=== PATIENT | female | born 1995 | race Caucasian/White ===

== ENCOUNTER 2019-10-31 00:54 | Emergency (ER) | payer BC, SELFPAY ==
[2019-10-31 01:01] VITALS: BP 132/86; PULSE 82; RESP 16; TEMP 37.1; O2SAT 97; BMI 43.8
[2019-10-31 01:28] LABS: Basophils # 0.1 10^3/uL (0.0-0.1); Basophils % 0.9 %; Eosinophils # 0.3 10^3/uL (0.0-0.8); Hemoglobin 11.8 g/dL (11.5-15.3); Lymphocytes # 3.8 10^3/uL (0.8-4.8); Lymphocytes % 27.3 %; Mean Corpuscular HGB Conc 31.1 g/dL (30.0-36.0); Mean Corpuscular Hemoglobin 25.2 pg (28.0-34.0); Mean Corpuscular Volume 81.2 fL (81-99); Monocytes # 0.8 10^3/uL (0.2-0.9); Neutrophils # 8.6 10^3/uL (1.8-7.7); Neutrophils % 62.7 %; Nucleated Red Blood Cells % 0 %; Platelet Count 453 10^3/cmm (130-400); Red Blood Count 4.68 10^6/uL (4.1-5.3); Red Cell Distribution Width 13.9 % (12.1-15.1); White Blood Count 13.8 10^3/uL (4.0-10.0)
--- NOTE | 2019-10-31 01:36 | ED_ITS ---
HPI - General: Chief complaint: Vaginal Bleeding Stated complaint: early preg and bleeding Time Seen by Provider: 10/31/19 00:57 Source: patient Mode of arrival: ambulatory Limitations: no limitations History of Present Illness: HPI Narrative: 24-year-old female who is currently 5 to 6 weeks she believes states she has had vaginal bleeding today. States that she is now passing clots but it has been steady. She has had lower abdominal cramping as well. Denies any vomiting or diarrhea. She states she has had subchorionic hemorrhages with previous pregnancies. MD Complaint: vaginal bleeding Date of Last Menstrual Period: 08/08/19 Associated symptoms: Deny abdominal pain, headache(s), nausea or vomiting Review of Systems Const: Denies: fever(s), chills, body aches or change in appetite Eyes: Denies: blurry vision or eye discomfort ENMT: Denies: throat pain or dental pain Card: Denies: chest pain Resp: Denies: dyspnea GI: Denies: abdominal pain, nausea, vomiting or diarrhea : Reports: vaginal bleeding Musc: Denies: neck pain or back pain Skin/Breast: Denies: rash Neuro: Denies: headache(s) Psych: Denies: depression Deacon/Lymph: Denies: easy bruising All/Imm: Denies: urticaria PFSH ED PFSH: Social History Smoking and tobacco status: current every day smoker Female Reproductive History: Date of last menstrual period: 08/08/19 Physical Exam Const: COMMON NORMALS: no acute distress, patient oriented x3 and healthy appearing HENMT: COMMON NORMALS: normocephalic and atraumatic HEAD & SCALP: normocephalic and atraumatic Eye: COMMON NORMALS: Equal, round and reactive pupils present and EOMs intact bilaterally PUPIL: Yes Equal, round and reactive pupils present Neck/C-Spine: COMMON NORMALS: full ROM and supple Chest: COMMONS NORMALS: normal inspection of the chest and normal palpation of entire chest wall Resp: COMMON NORMALS: normal respiratory effort, No retractions, No use of accessory muscles and clear to auscultation bilaterally AUSCULTATION: clear to auscultation bilaterally Cardio: COMMON NORMALS: regular rate, regular rhythm and No murmurs present (Cardio) RATE: regular rate RHYTHM: regular rhythm GI: COMMON NORMALS: Normal to inspection, nondistended, normoactive bowel sounds present, Soft to palpation, non-tender and no masses PALPATION: Yes Soft to palpation Extremity: COMMON NORMALS: normal to inspection and full ROM Neuro: COMMON NORMALS: patient oriented x3, moves all extremities and no focal motor deficits Psych: COMMON NORMALS: mental status grossly normal, Normal thought process present and cooperative THOUGHT PROCESS: Normal thought process present Skin: COMMON NORMALS: no rashes or lesions noted and no wounds GENERAL SKIN EXAM: no rashes or lesions noted Course Vital Signs: Vital signs: Vital Signs Temperature 98.8 F 10/31/19 01:01 Pulse Rate 105 H 10/31/19 01:48 Respiratory Rate 17 10/31/19 01:48 Blood Pressure 124/81 10/31/19 01:48 Pulse Oximetry 97 10/31/19 01:48 MDM - OB/Uterine Contractions MDM Narrative: Medical decision making narrative: Patient presents here with threatened miscarriage and likely has had a miscarriage. Her quantitative level here is very low. Her vital signs are normal and she has no signs of an acute ectopic and bedside ultrasound showed no IUP. I do not believe patient needs a formal ultrasound at this time. She is to follow-up with her primary care doctor scheduled as Friday to have a repeat quantitative. She is to return to the ER if her pain or bleeding worsens. She understands and agrees to plan. Lab Data: Labs: Lab Results 10/31/19 10/31/19 Range/Units 01:15 01:15 WBC 13.8 H (4.0-10.0) 10^3/ uL RBC 4.68 (4.1-5.3) 10^6/u L Hgb 11.8 (11.5-15.3) g/dL Hct 38.0 (37.0-47.0) % MCV 81.2 (81-99) fL MCH 25.2 L (28.0-34.0) pg MCHC 31.1 (30.0-36.0) g/dL RDW 13.9 (12.1-15.1) % Plt Count 453 H (130-400) 10^3/c mm MPV 10.0 (7.4-10.4) fL Neut % (Auto) 62.7 % Lymph % (Auto) 27.3 % [place] % (Auto) 6.0 % Eos % (Auto) 2.0 % Baso % (Auto) 0.9 % Neut # (Auto) 8.6 H (1.8-7.7) 10^3/u L Lymph # (Auto) 3.8 (0.8-4.8) 10^3/u L [place] # (Auto) 0.8 (0.2-0.9) 10^3/u L Eos # (Auto) 0.3 (0.0-0.8) 10^3/u L Baso # (Auto) 0.1 (0.0-0.1) 10^3/u L Nucleated RBC % (a uto) 0 % Nucleated RBCs # 0.0 /100WBC Ser , Sophie i-Qnt 4.78 mIU/mL Discharge Plan Discharge Patient Disposition: Home, Self-Care Clinical Impression: Threatened Condition: Stable Prescriptions: No Action Adult Low Dose Aspirin RF: 0 Discharge Orders: Discharge Order (Routine); Ordered 10/31/19 Ordered By: Jerman Jorgensen Referrals: Rico Kellogg MD [Primary Care Provider] - Discharge Diet: Advance as tolerated Discharge Activity: Resume usual activity Patient Instructions: Threatened Miscarriage (ED) Coding Level of Care Code ED Cat Wagon Operator for Chg Fwd Exam Comprehensive
[2019-10-31 01:40] LABS: HCG Quantitative 4.78 mIU/mL
[2019-10-31 01:48] VITALS: BP 124/81; PULSE 105; RESP 17; O2SAT 97
== END 2019-10-31 02:07 | disposition home or self-care (01) ==
PROVIDERS: Emergency Provider Emergency Medicine; PCP Family Medicine
DX: O20.0 Threatened abortion (principal); Z3A.01 Less than 8 weeks gestation of pregnancy; O99.331 Smoking (tobacco) complicating pregnancy, first trimester; F17.210 Nicotine dependence, cigarettes, uncomplicated
CPT/HCPCS: 12345; 84702; 85025; 99281; 99282

== ENCOUNTER → 2020-04-02 09:36 | Outpatient (BNVA) | payer OTHER, SELFPAY | PROVIDERS: PCP Family Medicine | DX: Z20.828 Contact with and (suspected) exposure to other viral communicable diseases (principal) | CPT/HCPCS: 87635 ==

== ENCOUNTER 2020-06-09 15:56 | Emergency (ER) | payer OTHER, SELFPAY ==
[2020-06-09 16:02] VITALS: BP 135/88; PULSE 102; RESP 18; TEMP 36.7; O2SAT 99; BMI 43.4
[2020-06-09 16:04] VITALS: O2SAT 99
--- NOTE | 2020-06-09 16:23 | ED_ITS ---
HPI - General: Chief complaint: Vaginal Bleeding Stated complaint: CRAMPING, SPOTTING, @ 8 WKS Time Seen by Provider: 06/09/20 16:08 History of Present Illness: HPI Narrative: 24-year-old female who is approximately 8 weeks gestation she is G2, P1. She started having cramping few days ago and now is having some small amount of spotting mostly when she wipes once or twice that spent on her underwear it began this morning. She has not had to wear a pad. She did have a previous loss in the first trimester. She denies any recent trauma. No recent cough cold or flu symptoms no dysuria urgency or frequency no vaginal discharge to be on the bleeding. MD Complaint: vaginal bleeding Onset (ago): day(s) Pain Consistency: intermittent Location: pelvis Severity: moderate Quality: Cramping Relieving factors: none Exacerbating factors: none Vaginal discharge: none Vaginal bleeding: light Date of Last Menstrual Period: 04/16/20 Patient : Yes Number of Weeks : 8 OB History - Current : no complications OB History - Previous Pregnancies: miscarriage (First trimester) and other (Subchorionic hemorrhage) care: followed by OB Associated symptoms: Deny abdominal pain, dyspareunia, dysuria, headache(s), malaise, nausea, rash, seizures, short of breath, syncope, vaginal discharge, visual changes, vomiting or weakness Review of Systems Const: Denies: malaise ENMT: Denies: throat pain, ear or mastoid pain, nasal discharge or nasal congestion Card: Denies: syncope Resp: Denies: dyspnea, productive cough or non-productive cough GI: Denies: abdominal pain, nausea or vomiting : Denies: dysuria, vaginal discharge or dyspareunia Skin/Breast: Denies: rash or pruritus Neuro: Denies: headache(s) PFSH ED PFSH: Family History Mother Hypertension Father Diabetes Grandmother Dementia Social History Smoking and tobacco status: current every day smoker Female Reproductive History: Date of last menstrual period: 04/16/20 Physical Exam Const: COMMON NORMALS: no acute distress GENERAL APPEARANCE: cooperative and comfortable ORIENTATION/CONSCIOUSNESS: Yes awake, Yes oriented to person, Yes oriented to place and Yes oriented to time HENMT: COMMON NORMALS: normocephalic, atraumatic and hearing grossly normal bilaterally HEAD & SCALP: normocephalic and atraumatic Neck/C-Spine: COMMON NORMALS: no JVD Resp: COMMON NORMALS: normal respiratory effort, No retractions, No use of accessory muscles and clear to auscultation bilaterally AUSCULTATION: clear to auscultation bilaterally Cardio: COMMON NORMALS: no JVD, regular rate, regular rhythm and No murmurs present (Cardio) RATE: regular rate RHYTHM: regular rhythm GI: COMMON NORMALS: Soft to palpation and No hepatosplenomegaly present AUSCULTATION: Yes normoactive bowel sounds PALPATION: Yes Soft to palpation, No Tenderness to palpation present (GI), No Guarding due to palpation present (GI) and Yes No hepatosplenomegaly present Extremity: COMMON NORMALS: normal to inspection, capillary refill normal, no clubbing, cyanosis or edema, no calf tenderness and no pedal edema Neuro: SENSORIUM/ORIENTATION: Yes oriented to person, Yes oriented to place and Yes oriented to time Skin: COMMON NORMALS: no rashes or lesions noted GENERAL SKIN EXAM: no rashes or lesions noted Procedures Perimortem Number of Weeks : 8 Course Vital Signs: Vital signs: Vital Signs Temperature 98.1 F 06/09/20 16:02 Pulse Rate 88 06/09/20 17:54 Respiratory Rate 18 06/09/20 16:02 Blood Pressure 125/95 06/09/20 17:54 Pulse Oximetry 100 06/09/20 17:54 MDM - OB/Uterine Contractions MDM Narrative: Medical decision making narrative: Ultrasound shows intrauterine with good heart tones. Beta-hCG is normal patient is a positive she does have a subchorionic hemorrhage. Discharge home no lifting greater than 20 pounds, pelvic rest until released by her primary OB physician. Lab Data: Labs: Lab Results 06/09/20 06/09/20 06/09/20 Range/Units 16:30 16:30 16:30 WBC 14.6 H (4.0-10.0) 10^3/ uL RBC 4.84 (4.1-5.3) 10^6/u L Hgb 12.4 (11.5-15.3) g/dL Hct 39.3 (37.0-47.0) % MCV 81.2 (81-99) fL MCH 25.6 L (28.0-34.0) pg MCHC 31.6 (30.0-36.0) g/dL RDW 14.9 (12.1-15.1) % Plt Count 455 H (130-400) 10^3/c mm MPV 10.4 (7.4-10.4) fL Neut % (Auto) 67.0 % Lymph % (Auto) 24.4 % [place] % (Auto) 5.5 % Eos % (Auto) 1.6 % Baso % (Auto) 0.7 % Neut # (Auto) 9.80 H (1.8-7.7) 10^3/u L Lymph # (Auto) 3.6 (0.8-4.8) 10^3/u L [place] # (Auto) 0.8 (0.2-0.9) 10^3/u L Eos # (Auto) 0.2 (0.0-0.8) 10^3/u L Baso # (Auto) 0.1 (0.0-0.1) 10^3/u L Nucleated RBC % (a uto) 0 % Nucleated RBCs # 0.0 /100WBC Sodium 134 L (136-145) mmol/L Potassium 3.8 (3.5-5.1) mmol/L Chloride 100 (98-107) mmol/L Carbon Dioxide 24 (22-29) mmol/L Anion Gap 13.8 (5-19) BUN 8 (6-20) mg/dL Creatinine 0.6 (0.5-0.9) mg/dL GFR Calculation 123.9 (90-130) mL/min Glucose 127 H (65-115) mg/dL Calculated Osmolal ity 278 L (285-295) mOsm/k g Calcium 9.2 (8.5-10.5) mg/dL Ser , [place] 33232.00 mIU/mL Urine Color (Yellow) Urine Appearance (CLEAR) Urine pH (5-7) Ur Specific Gravit y (1.005-1.030) Urine Protein (Negative) Urine Glucose (UA) (Normal) Urine Ketones (Negative) Urine Blood (Negative) Urine Nitrate (Negative) Urine Bilirubin (Negative) Urine Urobilinogen (Negative) mg/dL Ur Leukocyte Katlyn ase (Negative) Blood Type O Positive Rho(D) Type Positive 06/09/20 Range/Units 17:51 WBC (4.0-10.0) 10^3/ uL RBC (4.1-5.3) 10^6/u L Hgb (11.5-15.3) g/dL Hct (37.0-47.0) % MCV (81-99) fL MCH (28.0-34.0) pg MCHC (30.0-36.0) g/dL RDW (12.1-15.1) % Plt Count (130-400) 10^3/c mm MPV (7.4-10.4) fL Neut % (Auto) % Lymph % (Auto) % [place] % (Auto) % Eos % (Auto) % Baso % (Auto) % Neut # (Auto) (1.8-7.7) 10^3/u L Lymph # (Auto) (0.8-4.8) 10^3/u L [place] # (Auto) (0.2-0.9) 10^3/u L Eos # (Auto) (0.0-0.8) 10^3/u L Baso # (Auto) (0.0-0.1) 10^3/u L Nucleated RBC % (a uto) % Nucleated RBCs # /100WBC Sodium (136-145) mmol/L Potassium (3.5-5.1) mmol/L Chloride (98-107) mmol/L Carbon Dioxide (22-29) mmol/L Anion Gap (5-19) BUN (6-20) mg/dL Creatinine (0.5-0.9) mg/dL GFR Calculation (90-130) mL/min Glucose (65-115) mg/dL Calculated Osmolal ity (285-295) mOsm/k g Calcium (8.5-10.5) mg/dL Ser , Sophie i-Qnt mIU/mL Urine Color Yellow (Yellow) Urine Appearance Clear (CLEAR) Urine pH 6.5 (5-7) Ur Specific Gravit y 1.010 (1.005-1.030) Urine Protein Neg (Negative) Urine Glucose (UA) Norm (Normal) Urine Ketones Negative (Negative) Urine Blood Neg (Negative) Urine Nitrate Negative (Negative) Urine Bilirubin Neg (Negative) Urine Urobilinogen Norm (Negative) mg/dL Ur Leukocyte Kat[place] ase Negative (Negative) Blood Type Rho(D) Type Discharge Plan Discharge Patient Disposition: Home Clinical Impression: Subchorionic hematoma in first trimester Condition: Stable Prescriptions: No Action Doculax 100 mg Capsule 100 mg PO PRN RF: 0 omeprazole 20 mg capsule,delayed release(DR/EC) 20 mg PO EVERY OTHER DAY RF: 0 Flintstones Gummies Tablet,Chewable 2 - 3 tab PO QAM RF: 0 Discharge Orders: Discharge ED (Routine); Ordered 06/09/20 Ordered By: Vitor Perea Referrals: Rico Kellogg MD [Primary Care Provider] - Discharge Diet: Usual diet Discharge Activity: Resume usual activity Activity Restrictions/Additional Instructions: Avoid strenuous activity. Follow-up with Dr. Kellogg within the week. If increase in bleeding or any worsening of cramping return to the emergency room. No intercourse nothing intravaginal until released by your physician. Coding Level of Care Code ED Pre Sales Architect for Chg Fwd Exam Comprehensive
--- NOTE | 2020-06-09 16:26 | PC.PHAR ---
pt states she was taking aspirin daily because she has a history of blood clots but states she hasnt taken for 8 weeks
[2020-06-09 16:39] LABS: Basophils # 0.1 10^3/uL (0.0-0.1); Basophils % 0.7 %; Eosinophils # 0.2 10^3/uL (0.0-0.8); Eosinophils % 1.6 %; Hematocrit 39.3 % (37.0-47.0); Hemoglobin 12.4 g/dL (11.5-15.3); Lymphocytes # 3.6 10^3/uL (0.8-4.8); Lymphocytes % 24.4 %; Mean Corpuscular HGB Conc 31.6 g/dL (30.0-36.0); Mean Corpuscular Hemoglobin 25.6 pg (28.0-34.0); Mean Corpuscular Volume 81.2 fL (81-99); Mean Platelet Volume 10.4 fL (7.4-10.4); Monocytes # 0.8 10^3/uL (0.2-0.9); Monocytes % 5.5 %; Nucleated Red Blood Cells % 0 %; Platelet Count 455 10^3/cmm (130-400); Red Blood Count 4.84 10^6/uL (4.1-5.3); Red Cell Distribution Width 14.9 % (12.1-15.1); White Blood Count 14.6 10^3/uL (4.0-10.0)
--- NOTE | 2020-06-09 17:05 | USR_ITS ---
PROCEDURE INFORMATION: Exam: US , Limited Exam date and time: 06/09/2020 5:41 PM Age: 24 years old Clinical indication: Lmp or gestational age (in weeks): 8 w 0 d; Other: Spotting; TECHNIQUE: Imaging protocol: Real-time ultrasound of the maternal uterus with image documentation. Exam focused on the clinical indication. COMPARISON: [place] [facility] – [place] OB > 14 weeks 02/19/2018 10:47 AM FINDINGS: Gestation: Morphologically normal intrauterine gestational sac containing a normal yolk sac and pole. There is a 3.5 x 3.5 x 2.2 cm predominantly isoechoic myometrial mass within the anterior right uterine body adjacent to the gestational sac. The structure demonstrates minimal mass effect on the gestational sac. There is a focus of hypoechoic material between the myometrial mass and gestational sac. heart rate: 150 bpm. BIOMETRY: Gestational age (AUA): 8 weeks 0 days by ultrasound Estimated due date (AUA): 01/19/2021 MATERNAL: Right adnexa: The right ovary is morphologically normal. The right ovary measures 2.7 x 1.4 x 1.4 cm. Left adnexa: The left ovary is morphologically normal. The left ovary measures 2.5 x 4.9 x 2.4 cm 4.9 x 2.5 x 2.4 cm. Intraperitoneal space: no pelvic free fluid. Urinary bladder: The urinary bladder is unremarkable. US/US OB <= 14 weeks fetus [id number] IMPRESSION: 1. Single live intrauterine . 8 weeks 0 days gestational age by ultrasound. 2. Trace subchorionic hemorrhage is suspected. 3. Probable 3.5 cm anterior right uterine body myometrial fundal fibroid.
[2020-06-09 17:20] LABS: Anion Gap 13.8 (5-19); Blood Urea Nitrogen 8 mg/dL (6-20); Calcium 9.2 mg/dL (8.5-10.5); Carbon Dioxide 24 mmol/L (22-29); Chloride 100 mmol/L (98-107); Glomerular Filtration Rate 123.9 mL/min (90-130); Glucose 127 mg/dL (65-115); Osmolality Calculated 278 mOsm/kg (285-295); Potassium 3.8 mmol/L (3.5-5.1); Sodium 134 mmol/L (136-145)
[2020-06-09 17:54] VITALS: BP 125/95; PULSE 88; O2SAT 100
[2020-06-09 18:10] LABS: Add Urine Microscopic? NO
[2020-06-09 18:15] LABS: Bilirubin Urine Neg (Negative); Blood Urine Neg (Negative); Glucose Urine UA Norm (Normal); Ketones Urine Negative (Negative); Leukocyte Esterase Urine Negative (Negative); Nitrate Urine Negative (Negative); Protein Urine Neg (Negative); Urine Appearance Clear (CLEAR); Urine Color Yellow (Yellow); Urobilinogen Urine Norm (Negative); pH Urine 6.5 (5-7)
== END 2020-06-09 18:00 | disposition home or self-care (01) ==
PROVIDERS: Emergency Provider Family Medicine; PCP Family Medicine
DX: O41.8X10 Other specified disorders of amniotic fluid and membranes, first trimester, not applicable or unspecified (principal); O99.331 Smoking (tobacco) complicating pregnancy, first trimester; F17.210 Nicotine dependence, cigarettes, uncomplicated; Z3A.08 8 weeks gestation of pregnancy
CPT/HCPCS: 12345; 76801; 80048; 81003; 84702; 85025; 86900; 99282; 99283

== ENCOUNTER 2020-10-12 07:37 | Emergency (ER) | payer OTHER, SELFPAY ==
[2020-10-12 07:47] VITALS: BP 148/94; PULSE 89; RESP 18; TEMP 36.9; O2SAT 98; BMI 41.8
[2020-10-12] MEDS: promethazine 25 mg/mL SDV 1 mL IM (08:17)
[2020-10-12] MEDS: sodium chloride 0.9% 1,000 ML 999 ML IV (08:17)
[2020-10-12 08:21] LABS: Basophils # 0.1 10^3/uL (0.0-0.1); Basophils % 0.6 %; Eosinophils # 0.1 10^3/uL (0.0-0.8); Eosinophils % 0.7 %; Hematocrit 35.1 % (37.0-47.0); Hemoglobin 11.4 g/dL (11.5-15.3); Lymphocytes # 3.1 10^3/uL (0.8-4.8); Lymphocytes % 28.4 %; Mean Corpuscular HGB Conc 32.5 g/dL (30.0-36.0); Mean Corpuscular Hemoglobin 27.3 pg (28.0-34.0); Mean Corpuscular Volume 84.2 fL (81-99); Mean Platelet Volume 10.7 fL (7.4-10.4); Monocytes # 0.7 10^3/uL (0.2-0.9); Monocytes % 6.5 %; Neutrophils # 6.95 10^3/uL (1.8-7.7); Nucleated Red Blood Cells % 0 %; Platelet Count 345 10^3/cmm (130-400); Red Blood Count 4.17 10^6/uL (4.1-5.3); Red Cell Distribution Width 13.7 % (12.1-15.1); White Blood Count 11.1 10^3/uL (4.0-10.0)
--- NOTE | 2020-10-12 08:24 | W.ED.NAVMDI ---
HPI - Nausea/Vomiting/Diarrhea General: Chief complaint: Nausea/Vomiting/Diarrhea Stated complaint: n.v.d Time Seen by Provider: 10/12/20 07:46 History of Present Illness: HPI Narrative: 25-year-old female is approximately 25 weeks . She has had problems with nausea and vomiting throughout the . She has been taking Zofran for her nausea. She also has had some dental pain and has been taking a combination Tylenol product. She is concerned about acetaminophen overdose. The combination product she has been taking has 250 mg of acetaminophen per tablet she has been taking 2 tablets every 6-8 hours. On that regimen add max she would be getting 2 g of acetaminophen in 24 hours. MD elicited complaint: nausea, vomiting and diarrhea Pertinent past history: other () Onset (ago): week(s) Associated nausea: Yes Associated abdominal pain: Yes Location of pain: Diffuse Pain consistency: intermittent Severity: moderate Quality: cramping Exacerbating factors: eating Relieving factors: medication Associated symtoms: Reports headache(s), anorexia and nausea; Denies altered mental status, anxiety, bloating, change in vision, chest pain, cough, diaphoresis, decreased urine output, dizziness, dysuria, epistaxis, fatigue, fecal incontinence, fevers/chills, malaise, myalgias, numbness, palpitations, rash, short of breath, syncope, tenesmus, tinnitus or weakness Treatment prior to arrival: other (Ondansetron) Review of Systems Const: Denies: fatigue, malaise or diaphoresis Eyes: Denies: change in vision ENMT: Denies: tinnitus or epistaxis Card: Denies: chest pain, palpitations or syncope Resp: Denies: dyspnea, productive cough or non-productive cough GI: Reports: nausea; Denies: bloating or fecal incontinence : Denies: dysuria Skin/Breast: Denies: rash or pruritus Neuro: Reports: headache(s); Denies: dizziness Psych: Denies: anxiety PFSH ED PFSH: Family History Mother Hypertension Father Diabetes Grandmother Dementia Social History Smoking and tobacco status: current every day smoker Female Reproductive History: Date of last menstrual period: 04/14/20 Physical Exam Const: COMMON NORMALS: no acute distress EXAM LIMITATIONS: no altered mental status GENERAL APPEARANCE: cooperative and comfortable ORIENTATION/CONSCIOUSNESS: Yes awake, Yes oriented to person, Yes oriented to place and Yes oriented to time HENMT: COMMON NORMALS: normocephalic, atraumatic and hearing grossly normal bilaterally HEAD & SCALP: normocephalic and atraumatic Neck/C-Spine: COMMON NORMALS: no JVD Lymph: LYMPHATIC: no lymphadenopathy noted and no lymphedema noted Resp: COMMON NORMALS: normal respiratory effort, No retractions, No use of accessory muscles and clear to auscultation bilaterally AUSCULTATION: clear to auscultation bilaterally Cardio: COMMON NORMALS: no JVD, regular rate, regular rhythm and No murmurs present (Cardio) RATE: regular rate RHYTHM: regular rhythm GI: COMMON NORMALS: Soft to palpation and No hepatosplenomegaly present AUSCULTATION: Yes normoactive bowel sounds PALPATION: Yes Soft to palpation, No Tenderness to palpation present (GI), No Guarding due to palpation present (GI) and Yes No hepatosplenomegaly present Extremity: COMMON NORMALS: normal to inspection, capillary refill normal, no clubbing, cyanosis or edema, no calf tenderness and no pedal edema Neuro: SENSORIUM/ORIENTATION: Yes oriented to person, Yes oriented to place and Yes oriented to time Skin: COMMON NORMALS: no rashes or lesions noted GENERAL SKIN EXAM: no rashes or lesions noted Course Vital Signs: Vital signs: Vital Signs Temperature 98.4 F 10/12/20 07:47 Pulse Rate 64 10/12/20 09:46 Respiratory Rate 18 10/12/20 09:46 Blood Pressure 148/80 10/12/20 09:46 Pulse Oximetry 98 10/12/20 09:46 MDM - Nausea/Vomiting/Diarrhea MDM Narrative: Medical decision making narrative: Feeling better blood pressure is elevated. Encourage her to follow-up with her primary care doctor gave her promethazine to use as needed. Reviewed Tylenol max dosage in 24 hours with her. I encouraged her to follow-up with her primary care will be the combination medicine she is taking also includes aspirin. She can be getting a fairly sizable dose to the course of a day at the rate she is taking it discussed with her this may present some problems at delivery if she takes that dose all the way up till delivery date. Recommend she review and discuss with primary OB. Lab Data: Labs: Lab Results 10/12/20 10/12/20 10/12/20 Range/Units 08:05 08:05 08:05 WBC 11.1 H (4.0-10.0) 10^3/ uL RBC 4.17 (4.1-5.3) 10^6/u L Hgb 11.4 L (11.5-15.3) g/dL Hct 35.1 L (37.0-47.0) % MCV 84.2 (81-99) fL MCH 27.3 L (28.0-34.0) pg MCHC 32.5 (30.0-36.0) g/dL RDW 13.7 (12.1-15.1) % Plt Count 345 (130-400) 10^3/c mm MPV 10.7 H (7.4-10.4) fL Neut % (Auto) 63.0 % Lymph % (Auto) 28.4 % [place] % (Auto) 6.5 % Eos % (Auto) 0.7 % Baso % (Auto) 0.6 % Neut # (Auto) 6.95 (1.8-7.7) 10^3/u L Lymph # (Auto) 3.1 (0.8-4.8) 10^3/u L [place] # (Auto) 0.7 (0.2-0.9) 10^3/u L Eos # (Auto) 0.1 (0.0-0.8) 10^3/u L Baso # (Auto) 0.1 (0.0-0.1) 10^3/u L Nucleated RBC % (a uto) 0 % Nucleated RBCs # 0.0 /100WBC Sodium 137 (136-145) mmol/L Potassium 3.5 (3.5-5.1) mmol/L Chloride 105 (98-107) mmol/L Carbon Dioxide 19 L (22-29) mmol/L Anion Gap 16.5 (5-19) BUN 5 L (6-20) mg/dL Creatinine 0.4 L (0.5-0.9) mg/dL GFR Calculation 196.1 H (90-130) mL/min Glucose 110 (65-115) mg/dL Calculated Osmolal ity 282 L (285-295) mOsm/k g Calcium 7.8 L (8.5-10.5) mg/dL Total Bilirubin 0.2 (0.15-1.2) mg/dL AST 12 (0-32) U/L ALT 10 (0-33) U/L Alkaline Phosphata se 113 H (35-105) IU/L Total Protein 7.1 (6.6-8.7) g/dL Albumin 3.7 (3.5-5.2) g/dL Globulin 3.4 (1.3-4.6) g/dL Urine Color Yellow (Yellow) Urine Appearance Sl hazy (CLEAR) Urine pH 5 (5-7) Ur Specific Gravit y 1.015 (1.005-1.030) Urine Protein Neg (Negative) Urine Glucose (UA) Norm (Normal) Urine Ketones 1+ H (Negative) Urine Blood Neg (Negative) Urine Nitrate Negative (Negative) Urine Bilirubin 1+ H (Negative) Urine Urobilinogen 4 H (Negative) mg/dL Ur Leukocyte Katlyn ase Negative (Negative) Urine RBC 0-4 H (0-2) /hpf Urine WBC 0-4 H (0-5) /hpf Ur Squamous Epith Cells 5-10 H (0-5) /hpf Amorphous Sediment Not Reportable Urine Bacteria 1+ H (NONE) /hpf Urine Mucus 1+ /hpf Acetaminophen 7.7 L (10-30) ug/mL Discharge Plan Discharge Patient Disposition: Home Clinical Impression: Nausea and vomiting, Elevated blood pressure reading, 25 to 26 weeks gestation of Condition: Stable Prescriptions: New promethazine 25 mg tablet 25 mg PO Q6H PRN (Reason: nausea and vomiting) Qty: 20 RF: 0 No Action Doculax 100 mg Capsule 100 mg PO PRN RF: 0 omeprazole 20 mg capsule,delayed release(DR/EC) 20 mg PO EVERY OTHER DAY RF: 0 Flintstones Gummies Tablet,Chewable 2 - 3 tab PO QAM RF: 0 Discharge Orders: Discharge ED (Routine); Ordered 10/12/20 Ordered By: Vitor Perea Referrals: Rico Kellogg MD [Primary Care Provider] - Patient Instructions: Opioid Safety Activity Restrictions/Additional Instructions: Follow-up with your OB doctor within the next week to recheck on blood pressure and other symptoms. Coding Level of Care Code ED Senior It Assistant for Chg Fwd Exam Comprehensive
[2020-10-12 08:28] VITALS: BP 160/104; PULSE 110; RESP 18; O2SAT 98
[2020-10-12 08:38] LABS: Acetaminophen 7.7 ug/mL (10-30); Alanine Aminotransferase 10 U/L (0-33); Albumin Level 3.7 g/dL (3.5-5.2); Alkaline Phosphatase 113 IU/L (35-105); Anion Gap 16.5 (5-19); Aspartate Amino Transferase 12 U/L (0-32); Blood Urea Nitrogen 5 mg/dL (6-20); Calcium 7.8 mg/dL (8.5-10.5); Carbon Dioxide 19 mmol/L (22-29); Chloride 105 mmol/L (98-107); Globulin 3.4 g/dL (1.3-4.6); Glomerular Filtration Rate 196.1 mL/min (90-130); Glucose 110 mg/dL (65-115); Osmolality Calculated 282 mOsm/kg (285-295); Potassium 3.5 mmol/L (3.5-5.1); Sodium 137 mmol/L (136-145); Total Bilirubin 0.2 mg/dL (0.15-1.2); Total Protein 7.1 g/dL (6.6-8.7)
[2020-10-12 08:42] LABS: Add Urine Microscopic? YES; Bilirubin Urine 1+ (Negative); Blood Urine Neg (Negative); Glucose Urine UA Norm (Normal); Ketones Urine 1+ (Negative); Leukocyte Esterase Urine Negative (Negative); Nitrate Urine Negative (Negative); Protein Urine Neg (Negative); RBC Urine 0-4 /hpf (0-2); Specific Gravity, Urine 1.015 (1.005-1.030); Urine Appearance SL Hazy (CLEAR); Urine Color Yellow (Yellow); Urobilinogen Urine 4 mg/dL (Negative); pH Urine 5 (5-7)
[2020-10-12 08:43] LABS: Add Urine Culture? No; Bacteria Urine 1+ /hpf; Mucus Urine 1+ /hpf; WBC Urine 0-4 /hpf (0-5)
[2020-10-12 09:28] VITALS: BP 148/80; PULSE 64; RESP 18; O2SAT 98
[2020-10-12 09:46] VITALS: BP 148/80; PULSE 64; RESP 18; O2SAT 98
== END 2020-10-12 09:47 | disposition home or self-care (01) ==
PROVIDERS: Emergency Provider Family Medicine; PCP Family Medicine
DX: O26.892 Other specified pregnancy related conditions, second trimester (principal); R11.2 Nausea with vomiting, unspecified; R03.0 Elevated blood-pressure reading, without diagnosis of hypertension; O99.332 Smoking (tobacco) complicating pregnancy, second trimester; F17.210 Nicotine dependence, cigarettes, uncomplicated; Z3A.25 25 weeks gestation of pregnancy
CPT/HCPCS: 80053; 80307; 81001; 85025; 96360; 96372; 99283; J2550; J7030

== ENCOUNTER 2020-10-22 15:07 | Outpatient (CLI) | payer OTHER, SELFPAY ==
[2020-10-22 15:21] VITALS: BP 140/88; PULSE 96
[2020-10-22 15:31] VITALS: BMI 35.4
[2020-10-22 16:10] VITALS: BP 124/72; PULSE 82
== END 2020-10-22 16:15 | disposition home or self-care (01) ==
LOC: OPOB 15:16 → OBGYN 15:17
PROVIDERS: PCP Family Medicine; Visit Provider Family Medicine
DX: O21.9 Vomiting of pregnancy, unspecified (principal); R42 Dizziness and giddiness; R10.9 Unspecified abdominal pain
CPT/HCPCS: 99211

== ENCOUNTER 2020-10-23 21:18 | Emergency (ER) | payer OTHER, SELFPAY ==
[2020-10-23 21:24] VITALS: BP 140/96; PULSE 113; RESP 16; TEMP 36.6; O2SAT 99; BMI 41.0
--- NOTE | 2020-10-23 22:35 | W.ED.EAR ---
HPI - Ear Problem General: Chief complaint: Ear Stated complaint: hearing Time Seen by Provider: 10/23/20 22:27 Source: patient Mode of arrival: ambulatory Limitations: no limitations History of Present Illness: HPI Narrative: 25-year-old female who is currently 27 weeks states she is having congestion in her right ear along with some decreased hearing. She states she is also had some right lower dental pain in the last week. States her pain is sharp in nature and rates it a 6 out of 10. Denies any difficulty swallowing. She denies any fevers. She has no related complaints. Associated symptoms: Reports ear or mastoid pain; Denies fever(s), headache(s) or neck pain Review of Systems Const: Denies: fever(s), chills, body aches or change in appetite Eyes: Denies: blurry vision or eye discomfort ENMT: Reports: dental pain and ear or mastoid pain Card: Denies: chest pain Resp: Denies: dyspnea GI: Denies: abdominal pain, nausea, vomiting or diarrhea : Denies: dysuria Musc: Denies: neck pain or back pain Skin/Breast: Denies: rash Neuro: Denies: headache(s) Psych: Denies: depression Deacon/Lymph: Denies: easy bruising All/Imm: Denies: urticaria PFSH ED PFSH: Family History Mother Hypertension Father Diabetes Grandmother Dementia Social History Smoking and tobacco status: current every day smoker Female Reproductive History: Date of last menstrual period: 04/14/20 Physical Exam Const: COMMON NORMALS: no acute distress, patient oriented x3 and healthy appearing HENMT: COMMON NORMALS: normocephalic, atraumatic, EAC's normal and TM's normal bilaterally HEAD & SCALP: normocephalic and atraumatic EXTERNAL AUDITORY CANAL: EAC's normal TYMPANIC MEMBRANE: TM's normal bilaterally OTHER: Poor dentition with swelling of the right lower molar with tenderness no obvious abscess no trismus Eye: COMMON NORMALS: Equal, round and reactive pupils present and EOMs intact bilaterally PUPIL: Yes Equal, round and reactive pupils present Neck/C-Spine: COMMON NORMALS: full ROM and supple Chest: COMMONS NORMALS: normal inspection of the chest and normal palpation of entire chest wall Resp: COMMON NORMALS: normal respiratory effort, No retractions, No use of accessory muscles and clear to auscultation bilaterally AUSCULTATION: clear to auscultation bilaterally Cardio: COMMON NORMALS: regular rate, regular rhythm and No murmurs present (Cardio) RATE: regular rate RHYTHM: regular rhythm GI: COMMON NORMALS: Normal to inspection, nondistended, normoactive bowel sounds present, Soft to palpation, non-tender and no masses PALPATION: Yes Soft to palpation Extremity: COMMON NORMALS: normal to inspection and full ROM Neuro: COMMON NORMALS: patient oriented x3, moves all extremities and no focal motor deficits Psych: COMMON NORMALS: mental status grossly normal, Normal thought process present and cooperative THOUGHT PROCESS: Normal thought process present Skin: COMMON NORMALS: no rashes or lesions noted and no wounds GENERAL SKIN EXAM: no rashes or lesions noted Course Vital Signs: Vital signs: Vital Signs Temperature 97.9 F 10/23/20 21:24 Pulse Rate 113 H 10/23/20 21:24 Respiratory Rate 16 10/23/20 21:24 Blood Pressure 140/96 10/23/20 21:24 Pulse Oximetry 99 10/23/20 21:24 MDM - Ear MDM Narrative: Medical decision making narrative: Patient presents here with dental infection likely causing her pain. Patient's exam here is normal. We will place her on Keflex and she is stable for discharge. She has follow-up with PCP and return if worsening. Discharge Plan Discharge Patient Disposition: Home Clinical Impression: Pain, dental, Ear pain, right Condition: Stable Prescriptions: New cephalexin 500 mg capsule 500 mg PO TID 7 Days Qty: 21 RF: 0 No Action omeprazole 20 mg capsule,delayed release(DR/EC) 20 mg PO EVERY OTHER DAY RF: 0 Flintstones Gummies Tablet,Chewable 2 - 3 tab PO QAM RF: 0 promethazine 25 mg tablet 25 mg PO Q6H PRN (Reason: nausea and vomiting) Qty: 20 RF: 0 ondansetron HCl 4 mg tablet 4 mg PO DAILY RF: 0 Discharge Orders: Discharge ED (Routine); Ordered 10/23/20 Ordered By: Jerman Jorgensen Referrals: Rico Kellogg MD [Primary Care Provider] - 1-3 days Discharge Diet: Advance as tolerated Discharge Activity: Resume usual activity Patient Instructions: Ear Pain - Adult, Toothache (ED) Coding Level of Care Code ED [employer]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
[2020-10-23] MEDS: cephALEXin 500 mg Capsule PO (22:36)
[2020-10-23 22:37] VITALS: BP 141/77; PULSE 88; RESP 18; O2SAT 98
== END 2020-10-23 22:38 | disposition home or self-care (01) ==
PROVIDERS: Emergency Provider Emergency Medicine; PCP Family Medicine
DX: H92.01 Otalgia, right ear (principal); K08.89 Other specified disorders of teeth and supporting structures; F17.210 Nicotine dependence, cigarettes, uncomplicated
CPT/HCPCS: 99282

== ENCOUNTER 2020-10-27 15:05 | Outpatient (CLI) | payer OTHER, SELFPAY ==
[2020-10-22 22:14] VITALS: TEMP 36.4
[2020-10-22 22:15] VITALS: BP 123/86; PULSE 96
[2020-10-27] VITALS (8 sets, daily range): BP systolic 110–139; BP diastolic 63–87; PULSE 100–141; TEMP 35.9; BMI 41.0
[2020-10-27] MEDS: HYDROcodone-acetaminophen 5-325 mg Tablet 1 TAB PO (16:23)
[2020-10-27 16:42] LABS: Bacteria Urine TRACE /hpf; Bilirubin Urine Neg (Negative); Blood Urine Neg (Negative); Glucose Urine UA Norm (Normal); Ketones Urine Negative (Negative); Leukocyte Esterase Urine Negative (Negative); Nitrate Urine Negative (Negative); Protein Urine Neg (Negative); Urine Appearance Clear (CLEAR); Urine Color Yellow (Yellow); Urobilinogen Urine Norm (Negative); pH Urine 6.5 (5-7)
[2020-10-27 16:43] LABS: Add Urine Culture? No
== END 2020-10-27 17:05 | disposition home or self-care (01) ==
LOC: OPOB 15:13 → OBGYN 15:14
PROVIDERS: PCP Family Medicine; Visit Provider Family Medicine
DX: O16.9 Unspecified maternal hypertension, unspecified trimester (principal); O26.899 Other specified pregnancy related conditions, unspecified trimester; Z3A.00 Weeks of gestation of pregnancy not specified; R55 Syncope and collapse
CPT/HCPCS: 81001; 99211

== ENCOUNTER 2020-12-02 22:00 | Outpatient (CLI) | payer OTHER, MEDICAID, SELFPAY ==
[2020-12-02] VITALS (7 sets, daily range): BP systolic 123; BP diastolic 71; PULSE 98–104; TEMP 35.9; O2SAT 99–100; BMI 41.3
--- NOTE | 2020-12-02 22:30 | PC.NURSE ---
patient arrived to floor with 20g IV in RFA
[2020-12-02 22:48] LABS: Basophils # 0.1 10^3/uL (0.0-0.1); Basophils % 0.5 %; Eosinophils # 0.1 10^3/uL (0.0-0.8); Eosinophils % 0.7 %; Hematocrit 35.4 % (37.0-47.0); Hemoglobin 11.2 g/dL (11.5-15.3); Lymphocytes # 3.2 10^3/uL (0.8-4.8); Lymphocytes % 22.4 %; Mean Corpuscular HGB Conc 31.6 g/dL (30.0-36.0); Mean Corpuscular Hemoglobin 26.4 pg (28.0-34.0); Mean Corpuscular Volume 83.3 fL (81-99); Mean Platelet Volume 11.2 fL (7.4-10.4); Monocytes % 6.7 %; Neutrophils # 9.68 10^3/uL (1.8-7.7); Neutrophils % 68.5 %; Nucleated Red Blood Cells % 0 %; Platelet Count 317 10^3/cmm (130-400); Red Blood Count 4.25 10^6/uL (4.1-5.3); Red Cell Distribution Width 14.3 % (12.1-15.1); White Blood Count 14.1 10^3/uL (4.0-10.0)
[2020-12-02 23:03] LABS: Alanine Aminotransferase 11 U/L (0-33); Albumin Level 3.3 g/dL (3.5-5.2); Alkaline Phosphatase 110 IU/L (35-105); Anion Gap 15.3 (5-19); Aspartate Amino Transferase 11 U/L (0-32); Blood Urea Nitrogen 12 mg/dL (6-20); Calcium 8.9 mg/dL (8.5-10.5); Carbon Dioxide 21 mmol/L (22-29); Chloride 103 mmol/L (98-107); Globulin 3.1 g/dL (1.3-4.6); Glomerular Filtration Rate 122.8 mL/min (90-130); Glucose 127 mg/dL (65-115); Osmolality Calculated 283 mOsm/kg (285-295); Potassium 3.3 mmol/L (3.5-5.1); Sodium 136 mmol/L (136-145); Total Bilirubin 0.3 mg/dL (0.15-1.2); Total Protein 6.4 g/dL (6.6-8.7)
[2020-12-02 23:09] LABS: Add Urine Microscopic? YES; Bilirubin Urine 1+ (Negative); Blood Urine Neg (Negative); Glucose Urine UA Norm (Normal); Ketones Urine Negative (Negative); Leukocyte Esterase Urine Negative (Negative); Nitrate Urine Negative (Negative); Protein Urine 1+ (Negative); Urine Appearance Clear (CLEAR); Urine Color Yellow (Yellow); Urobilinogen Urine 1 mg/dL (Negative); pH Urine 5 (5-7)
[2020-12-02 23:10] LABS: Add Urine Culture? No; Bacteria Urine 2+ /hpf; Mucus Urine 2+ /hpf; RBC Urine 0-4 /hpf (0-2); Squamous Epithelial Cell Urine 15-25 /hpf (0-5)
--- NOTE | 2020-12-02 23:10 | PC.NURSE ---
Dr. Kellogg at nurses station, labs reviewed, strip reviewed, MD orders for patient to be discharged home, able to return to work tomorrow night.
== END 2020-12-02 23:21 | disposition home or self-care (01) ==
LOC: OPOB 22:05 → OBGYN 22:05
PROVIDERS: PCP Family Medicine; Visit Provider Family Medicine
DX: O26.899 Other specified pregnancy related conditions, unspecified trimester (principal); Z3A.00 Weeks of gestation of pregnancy not specified
CPT/HCPCS: 36415; 59025; 80053; 81001; 85025; 99211

== ENCOUNTER 2021-01-01 18:50 | Outpatient (CLI) | payer OTHER, SELFPAY ==
[2021-01-01 18:50] VITALS: BMI 42.3
[2021-01-01 19:06] VITALS: BP 131/84; PULSE 93
[2021-01-01 19:28] VITALS: BP 117/71; PULSE 93
[2021-01-01 19:35] VITALS: RESP 18
[2021-01-01 19:43] VITALS: BP 118/72; PULSE 105
[2021-01-01] MEDS: acetaminophen 500 mg Tablet 1000 MG PO (19:44)
== END 2021-01-01 20:03 | disposition home or self-care (01) ==
LOC: OPOB 18:54 → OBGYN 18:55
PROVIDERS: PCP Family Medicine; Visit Provider Family Medicine
DX: O26.899 Other specified pregnancy related conditions, unspecified trimester (principal); Z3A.00 Weeks of gestation of pregnancy not specified; R10.9 Unspecified abdominal pain; R10.2 Pelvic and perineal pain
CPT/HCPCS: 59025; 99211

== ENCOUNTER 2021-01-20 03:06 | Inpatient (IN) | payer OTHER, MEDICAID, SELFPAY ==
[2021-01-20] VITALS (29 sets, daily range): BP systolic 110–167; BP diastolic 56–101; PULSE 76–116; RESP 16–18; TEMP 36.3–37; BMI 42.9
[2021-01-20 04:31] LABS: Basophils # 0.1 10^3/uL (0.0-0.1); Basophils % 0.4 %; Eosinophils # 0.1 10^3/uL (0.0-0.8); Eosinophils % 0.5 %; Hematocrit 33.4 % (37.0-47.0); Hemoglobin 10.8 g/dL (11.5-15.3); Lymphocytes # 2.8 10^3/uL (0.8-4.8); Lymphocytes % 18.2 %; Mean Corpuscular HGB Conc 32.3 g/dL (30.0-36.0); Mean Corpuscular Hemoglobin 26.5 pg (28.0-34.0); Mean Corpuscular Volume 81.9 fl (81-99); Mean Platelet Volume 11.8 fL (7.4-10.4); Monocytes # 1.2 10^3/uL (0.2-0.9); Monocytes % 7.6 %; Neutrophils # 11.16 10^3/uL (1.8-7.7); Neutrophils % 72.5 %; Nucleated Red Blood Cells % 0 %; Platelet Count 366 10^3/cmm (130-400); Red Blood Count 4.08 10^6/uL (4.1-5.3); Red Cell Distribution Width 14.6 % (12.1-15.1); White Blood Count 15.4 10^3/uL (4.0-10.0)
[2021-01-20] MEDS: miSOPROStol 100 mcg tablet 25 MCG VAGINAL (04:46)
--- NOTE | 2021-01-20 07:25 | PM.OPHPUD ---
Labor & Delivery H&P Update Date of Procedure: January 20, 2021 Date H&P Performed: 01/19/21 H&P update information: I have reviewed H&P completed within last 30 days, I have examined patient prior to procedure and No changes to prior documentation Admission Diagnosis: 39 weeks and 6 days estimated gestational age presenting for induction Related Problem List Diagnoses (1) 39 weeks gestation of :
[2021-01-20 07:28] LABS: Amphetamines Screen Urine Negative (Negative); Barbiturates Screen Urine Negative (Negative); Benzodiazepines Screen Urine Negative (Negative); Cocaine Screen Urine Negative (Negative); Opiate Screen Urine Negative (Negative); PCP Screen Urine Negative (Negative); THC Screen Urine Negative (Negative)
[2021-01-20] MEDS: ondansetron 2 mg/ML SDV 2 mL 4 MG IVP (09:55)
[2021-01-20] MEDS: oxytocin 30 UNIT/500 ML BAG 999 UNIT IV (12:56)
--- NOTE | 2021-01-20 13:51 | P.PCNOB_ITS ---
Delivery Note: Date of delivery: January 20, 2021 Pre-delivery diagnoses: 25-year-old 5 para 3013 with an estimated gestational age of 39 weeks and 6 days presenting to the hospital for induction Post-delivery diagnoses: Status post spontaneous vaginal delivery Procedure: Spontaneous vaginal delivery Op report anesthesia: None Estimated blood loss (mL): 150 Pre-Delivery Course: The patient presented to the hospital this morning. At around 445 she had Cytotec 25 mcg placed per vagina. An amniotomy was performed around 7:00. She then progressed to complete without difficulty. Her had been unremarkable. Her blood type is O+. Her glucose screen was negative. Her Covid test is pending. Her GBS status is negative. The remainder of her labs were within normal limits. Delivery: DELIVERY: The patient progressed to complete without difficulty. She delivered a female with a weight of 7 pounds 10 ounces with Apgars of 7, 8. The baby was delivered from the MARCELO position and placed on the mother's abdomen. The baby's mouth and nose were suctioned. The cord was then clamped and cut. There was a nuchal cord x1. There was no meconium. The placenta and 3 vessel cord were delivered intact shortly thereafter. The perineum and vaginal vault were carefully examined. No lacerations were noted. Both the mother and the baby were in stable condition. Post-Delivery Status: Good A&P Assessment and plan (1) 39 weeks gestation of : Status: Acute (2) Spontaneous vaginal delivery: Status: Acute Coding Level of Care Code Acute Cosmetic Consultant for Chg Fwd Diagnoses 39 weeks gestation of Z3A.39 Spontaneous vaginal delivery O80
[2021-01-20] MEDS: ibuprofen 800 mg tablet PO ×2 (15:06→20:04)
[2021-01-20] MEDS: benzocaine-menthol 78 gm Canister 1 SPRAY TOPICAL (15:08)
[2021-01-20] MEDS: HYDROcodone-acetaminophen 5-325 mg Tablet PO (18:29)
[2021-01-20] MEDS: ondansetron 4 MG Tablet PO (18:29)
[2021-01-20] MEDS: docusate sodium 100 mg Capsule PO (18:30)
[2021-01-21 00:20] VITALS: BP 113/65; PULSE 61
[2021-01-21 02:36] LABS: Hematocrit 34.3 % (37.0-47.0); Mean Corpuscular HGB Conc 32.1 g/dL (30.0-36.0); Mean Corpuscular Hemoglobin 25.9 pg (28.0-34.0); Mean Corpuscular Volume 80.7 fl (81-99); Mean Platelet Volume 11.2 fL (7.4-10.4); Platelet Count 396 10^3/cmm (130-400); Red Blood Count 4.25 10^6/uL (4.1-5.3); Red Cell Distribution Width 14.6 % (12.1-15.1); White Blood Count 23.2 10^3/uL (4.0-10.0)
[2021-01-21 05:30] VITALS: BP 120/74; PULSE 79
[2021-01-21] MEDS: HYDROcodone-acetaminophen 5-325 mg Tablet PO (06:36)
[2021-01-21] MEDS: prenatal vitamin Capsule 1 CAP PO (10:03)
[2021-01-21] MEDS: docusate sodium 100 mg Capsule PO (10:03)
[2021-01-21] MEDS: ibuprofen 800 mg tablet PO (10:03)
[2021-01-21] MEDS: sertraline 50 mg Tablet 25 MG PO (10:03)
--- NOTE | 2021-01-21 10:03 | PM.OBGYDC ---
Discharge Providers HAND PACKER Date of Admission: 01/20/21 03:06 Date of Discharge: 01/21/21 Attending Provider at Admission: Rico Kellogg MD Attending Provider at Discharge: Rico Kellogg MD Primary Care Provider: Rico Kellogg MD Diagnoses at Discharge Discharge Diagnosis (1) 39 weeks gestation of : Status: Acute (2) Spontaneous vaginal delivery: Status: Acute Reason for Visit Reason for Visit: scheduled induction of labor Hospital Course Hospital Course The patient presented early Friday morning to the hospital for induction. Cytotec 25 mcg was placed. An amniotomy was performed. She then progressed to complete and had an unremarkable delivery of a healthy female infant. Her course is also been unremarkable. Her bleeding has been within normal limits. Her pain is been well controlled. Information Peripartum Data: Delivery Method: Vaginal Physical Exam Narrative: EXAM NARRATIVE: The patient is alert. She appears comfortable. Her heart has a regular rate and rhythm with no murmurs appreciated. Lungs are clear to auscultation bilaterally. Her fundus is firm and below the umbilicus. Discharge Data Data Completed and Pending: Labs from last 24 hours 01/21/21 02:15 WBC 23.2 H RBC 4.25 Hgb 11.0 L Hct 34.3 L MCV 80.7 L MCH 25.9 L MCHC 32.1 RDW 14.6 Plt Count 396 MPV 11.2 H Vitals: Last Vital Signs Temp 98.6 F 01/20/21 20:05 Pulse 79 01/21/21 05:30 Resp 16 01/20/21 14:06 BP 120/74 01/21/21 05:30 Discharge Plan Discharge Patient Disposition: Home Condition: Stable Prescriptions: New ibuprofen 800 mg Tablet 800 mg PO TID Qty: 45 RF: 0 Continued Zoloft 25 mg Tablet 25 mg PO DAILY RF: 0 Discontinued omeprazole 20 mg capsule,delayed release(DR/EC) 20 mg PO EVERY OTHER DAY RF: 0 Flintstones Gummies Tablet,Chewable 2 - 3 tab PO QAM RF: 0 promethazine 25 mg tablet 25 mg PO Q6H PRN (Reason: nausea and vomiting) Qty: 20 RF: 0 ondansetron HCl 4 mg tablet 4 mg PO DAILY RF: 0 Discharge Orders: Discharge Order (Routine); Ordered 01/21/21 Ordered By: Rico Kellogg Discharge Diet: Usual diet Discharge Activity: Limit activity as instructed Patient Instructions: Depression (GEN), Breast Care for the Breast Feeding Mother (DC), Bleeding (DC), OB Discharge Report, OB Food/Drug Interaction Guide, OB Care at Home, Opioid Safety, OB Home Care, OB Proud Parent Packet, OB Vaginal Deliveries, Abnormal Bleeding Discharge Attestations HAND PACKER Time Spent in Discharge Care*: less than 30 min Specific Discharge Activities: Specific discharge activities: educating patient and educating and/or supporting family/caregiver Coding Level of Care Code Acute [employer] Mail Processor for Chg Fwd Diagnoses 39 weeks gestation of Z3A.39 Spontaneous vaginal delivery O80
[2021-01-21 10:36] VITALS: BP 123/78; PULSE 89
[2021-01-21 10:37] VITALS: RESP 18; TEMP 36.8; O2SAT 98
[2021-01-21 14:12] VITALS: BP 132/67; PULSE 88
[2021-01-21 14:13] VITALS: RESP 16; TEMP 36.8; O2SAT 98
== END 2021-01-21 14:55 | disposition home or self-care (01) | DRG 807 ==
LOC: OPOB 03:09 → OBGYN 03:10
PROVIDERS: Admitting Provider Family Medicine; PCP Family Medicine; Visit Provider Family Medicine
DX: O69.81X0 Labor and delivery complicated by cord around neck, without compression, not applicable or unspecified (principal); Z37.0 Single live birth; Z3A.39 39 weeks gestation of pregnancy; Z83.3 Family history of diabetes mellitus; Z82.49 Family history of ischemic heart disease and other diseases of the circulatory system; Z84.89 Family history of other specified conditions; Z91.040 Latex allergy status
CPT/HCPCS: 12345; 36415; 59409; 80306; 85025; 85027; J2405; Q0162

== ENCOUNTER 2022-01-12 16:13 | Emergency (ER) | payer OTHER, MEDICAID, SELFPAY ==
[2022-01-12 16:23] VITALS: BP 118/74; PULSE 78; RESP 16; TEMP 36.6; O2SAT 97; BMI 38.9
[2022-01-12 16:43] VITALS: BP 118/74; PULSE 78; RESP 16; TEMP 36.6; O2SAT 97
--- NOTE | 2022-01-12 16:58 | W.ED.EXTPRO ---
HPI - Extremity Problem General: Chief complaint: Extremity Injury, Upper Stated complaint: Left wrist pain Time Seen by Provider: 01/12/22 16:47 Source: patient Mode of arrival: ambulatory Limitations: no limitations History of Present Illness: Patient is a 26-year-old female presents to ED today with complaint of left wrist pain over the past 3 days. She has not had any injury or trauma to the wrist. 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 She is not having any numbness, tingling, loss of sensation to her hand. She has not noticed any color or temperature changes. She has not noticed any swelling to the wrist. MD Complaint: joint pain Onset (ago): day(s) (3d ago) Pain Consistency: constant Location: left and upper extremity (wrist) Radiation: none Relieving factors: immobilization Exacerbating factors: range of motion Associated symptoms: Reports no associated symptoms Review of Systems Musc: Reports: joint pain (L wrist); Denies: extremity pain, extremity swelling, joint swelling, joint redness, joint warmth or limited range of motion Neuro: Denies: numbness in extremities, weakness in extremities or sensory changes PFSH ED PFSH: Family History Mother Hypertension Father Diabetes Grandmother Dementia Social History Smoking and tobacco status: current every day smoker Female Reproductive History: Date of last menstrual period: 12/21/21 Physical Exam Const: COMMON NORMALS: no acute distress, no limitations and alert GENERAL APPEARANCE: cooperative Extremity: COMMON NORMALS: normal to inspection, full ROM, capillary refill normal, no joint enlargement and no clubbing, cyanosis or edema GENERAL: Yes normal exam except as noted LEFT UPPER EXTREMITY: Yes wrist (mild TTP L radial wrist w/o swelling) Left wrist: Yes ROM (full ROM) and Yes neurovascular exam (normal) Neuro: COMMON NORMALS: moves all extremities, no focal motor deficits and no sensory deficits noted SENSORIUM/ORIENTATION: Yes alert Course Vital Signs: Vital signs: Vital Signs Temperature 97.9 F 01/12/22 16:43 Pulse Rate 78 01/12/22 16:43 Respiratory Rate 16 01/12/22 16:43 Blood Pressure 118/74 01/12/22 16:43 Pulse Oximetry 97 01/12/22 16:43 Oxygen Delivery Me thod 01/12/22 16:43 MDM - Extremity (Nontraumatic) Medical Decision Making Patient has no known injury or trauma to the wrist. 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 Most likely patient having a tendinitis/overuse syndrome. Recommend bracing, ice, elevation, rest, NSAIDs, and follow-up with PCP in 1 to 2 weeks for reevaluation. Patient agreeable to plan. Discharge Plan Discharge Patient Disposition: Home Clinical Impression: Left wrist tendonitis Condition: Stable Prescriptions: No Action Zoloft 25 mg Tablet 25 mg PO DAILY ibuprofen 800 mg Tablet 800 mg PO TID Qty: 45 0RF Discharge Orders: Discharge ED (Routine); Ordered 01/12/22 Ordered By: Celeste Simmons Referrals: Rico Kellogg MD [Primary Care Provider] - Patient Instructions: Tendinitis (ED) Coding Level of Care Code ED [employer] Travel Counselor for Mary Caal
== END 2022-01-12 17:08 | disposition home or self-care (01) ==
PROVIDERS: Emergency Provider Physician Assistant; PCP Family Medicine
DX: M77.8 Other enthesopathies, not elsewhere classified (principal); F17.210 Nicotine dependence, cigarettes, uncomplicated
CPT/HCPCS: 99283

== ENCOUNTER 2022-02-04 09:13 | Emergency (ER) | payer OTHER, MEDICAID, SELFPAY ==
[2022-02-04 09:17] VITALS: BP 128/81; PULSE 82; RESP 14; TEMP 36.7; O2SAT 99; BMI 39.4
--- NOTE | 2022-02-04 09:43 | US_ITS ---
WS: [id number] TRANSVAGINAL PELVIC ULTRASOUND HISTORY: pain COMPARISON: 10/10/2015 Uterus: 8.2 cm x 4.8 cm x 4.2 cm. Normal size anteverted uterus. No fibroid or mass. Endometrium: 0.9 cm. IUD is in place. There is shadowing from the posterior IUD. The tip ends within 1 cm of the fundal portion of the endometrium. Right ovary: 3.4 cm x 1.9 cm x 3.9 cm. Normal size ovary. Thick walled corpus luteal cyst measures 15 x 18 mm. Normal vascularity. Left ovary: 3.6 cm x 3.7 cm x 2.3 cm. Ovoid collapsing follicle measures 18 x 11 mm. Normal vasculari ty. Small amount of free fluid surrounding the uterus. US/US transvaginal [id number] IMPRESSION: 1. Small amount of physiologic free fluid. 2. Bilateral small ovarian follicles. No mass or torsion.
--- NOTE | 2022-02-04 09:44 | ED_ITS ---
HPI - Abdominal Pain General: Chief Complaint: Abdominal Pain Stated Complaint: Stabbing pain in abd Time Seen by Provider: 02/04/22 09:27 Source: patient Mode of arrival: ambulatory Limitations: no limitations History of Present Illness: 26-year-old female presents emergency room with abdominal pain and cramping postcoital. She does have an IUD was placed 4 to 5 months ago states her period is due within the next week. She denies any dysuria urgency or frequency hematuria. No history of ovarian cyst no recent illnesses. No vaginal discharge. No flank pain MD elicited complaint: other (Pelvic pain) Onset (ago): minute(s) Pain Consistency: constant Location: Periumbilical and Pelvis Severity: moderate Quality: cramping Radiation: none Exacerbating factors: other (Postcoital) Relieving factors: nothing Associated Symptoms: Reports GI cramping; Denies anorexia, belching, bloating, change in bowel habits, change in stool character, chills, coffee ground emesis, constipation, diarrhea, dyspepsia, dysuria, excessive flatus, fever(s), heartburn, hematochezia, hematuria, hematemesis, fecal incontinence, loose stools, melena, nausea, poor appetite, syncope and vomiting Related Data: Date of Last Menstrual Period: 12/21/21 Review of Systems Const: Denies: fever(s), chills or body aches ENMT: Denies: throat pain, ear or mastoid pain, nasal discharge or nasal congestion Card: Denies: chest pain or syncope Resp: Denies: dyspnea, productive cough or non-productive cough GI: Reports: abdominal pain and GI cramping; Denies: nausea, vomiting, hematemesis, coffee ground emesis, heartburn, diarrhea, constipation, bloating, belching, excessive flatus, fecal inco ntinence, change in bowel habits, change in stool character, hematochezia or melena : Denies: flank pain, difficulty voiding, dysuria, urinary frequency, urinary urgency, hematuria or vaginal discharge Musc: Denies: back pain Skin/Breast: Denies: rash or pruritus PFS ED PFSH: Family History Mother Hypertension Father Diabetes Grandmother Dementia Social History (Reviewed 01/14/22 @ 07:01 by GARRY Pisano Smoking and tobacco status: current every day smoker Female Reproductive History: Date of last menstrual period: 12/21/21 Physical Exam Const: COMMON NORMALS: no acute distress GENERAL APPEARANCE: cooperative and comfortable ORIENTATION/CONSCIOUSNESS: Yes awake, Yes oriented to person, Yes oriented to place and Yes oriented to time HENMT: COMMON NORMALS: normocephalic, atraumatic and hearing grossly normal bilaterally HEAD & SCALP: normocephalic and atraumatic Resp: COMMON NORMALS: normal respiratory effort, No retractions, No use of accessory muscles and clear to auscultation bilaterally AUSCULTATION: clear to auscultation bilaterally Cardio: COMMON NORMALS: regular rate, regular rhythm and No murmurs present (Cardio) RATE: regular rate RHYTHM: regular rhythm GI: COMMON NORMALS: Soft to palpation and No hepatosplenomegaly present AUS CULTATION: Yes normoactive bowel sounds PALPATION: Yes Soft to palpation, No Tenderness to palpation present (GI), No Guarding due to palpation present (GI) and Yes No hepatosplenomegaly present Extremity: COMMON NORMALS: normal to inspection, capillary refill normal, no clubbing, cyanosis or edema, no calf tenderness and no pedal edema Neuro: SENSORIUM/ORIENTATION: Yes oriented to person, Yes oriented to place and Yes oriented to time Skin: COMMON NORMALS: no rashes or lesions noted GENERAL SKIN EXAM: no rashes or lesions noted Course Vital Signs: Vital signs: Vital Signs Temperature 98.0 F 02/04/22 11:32 Pulse Rate 82 02/04/22 11:32 Respiratory Rate 16 02/04/22 11:32 Blood Pressure 128/81 02/04/22 11:32 Pulse Oximetry 99 02/04/22 11:32 Oxygen Delivery Ny thod 02/04/22 10:23 MDM - Abdominal Pain Medical Decision Making reviewed imaging and labs w patient, Discussed w pt. discarge w diclofenec as needed, f/u w PCP Medical Records I reviewed the patient's medical records. Lab Data I reviewed the patient's lab results. Labs/Radiology: Radiology Impressions Transvaginal US 02/04/22 09:43 IMPRESSION: 1. Small amount of physiologic free fluid. 2. Bilateral small ovarian follicles. No mass or torsion. Laboratory Results HCG, Qual Negative (Negative) 02/04/22 10:00 Urine Color Straw (Yellow) 02/04/22 10:00 Urine Appearance Clear (CLEAR) 02/04/22 10:00 Urine pH 6 (5-7) 02/04/22 10:00 Ur Specific Douglass 1.010 (1.005-1.030) 02/04/22 10:00 Urine Protein Neg (Negative) 02/04/22 10:00 Urine Glucose (UA) Norm (Normal) 02/04/22 10:00 Urine Ketones Negative (Negative) 02/04/22 10:00 Urine Blood Neg (Negative) 02/04/22 10:00 Urine Nitrate Negative (Negative) 02/04/22 10:00 Urine Bilirubin Neg (Negative) 02/04/22 10:00 Urine Urobilinogen Norm mg/dL (Negative) 02/04/22 10:00 Ur Leukocyte Esterase Negative (Negative) 02/04/22 10:00 Discharge Plan Discharge Patient Disposition: Home Clinical Impression: Ovarian cyst Condition: Stable Prescriptions: New diclofenac sodium 75 mg tablet,delayed release (DR/EC) 75 mg PO Q12H PRN (Reason: pain) Qty: 20 0RF No Action Zoloft 25 mg Tablet 25 mg PO DAILY ibuprofen 800 mg Tablet 800 mg PO TID Qty: 45 0RF Discharge Orders: Discharge ED (Routine); Ordered 02/04/22 Ordered By: Vitor Perea Referrals: Rico Kellogg MD [Primary Care Provider] - Discharge Diet: Usual diet Discharge Activity: Resume usual activity Patient Instructions: Opioid Safety Activity Restrictions/Additional Instructions: Follow-up with your primary care doctor if not improving Coding Level of Care Code ED Die Set Up Worker for Chg Fwd Exam Detailed
[2022-02-04 10:06] LABS: Add Urine Microscopic? NO; Charge for UA Resulting for Rev
[2022-02-04 10:17] LABS: Bilirubin Urine Neg (Negative); Blood Urine Neg (Negative); Glucose Urine UA Norm (Normal); Ketones Urine Negative (Negative); Leukocyte Esterase Urine Negative (Negative); Nitrate Urine Negative (Negative); Protein Urine Neg (Negative); Urine Appearance Clear (CLEAR); Urine Color Straw (Yellow); Urobilinogen Urine Norm (Negative); pH Urine 6 (5-7)
[2022-02-04 10:23] VITALS: BP 128/81; PULSE 82; RESP 16; TEMP 36.7; O2SAT 99
[2022-02-04 10:33] LABS: HCG, Serum Qual Negative (Negative)
[2022-02-04 11:32] VITALS: BP 128/81; PULSE 82; RESP 16; TEMP 36.7; O2SAT 99
== END 2022-02-04 11:34 | disposition home or self-care (01) ==
PROVIDERS: Emergency Provider Family Medicine; PCP Family Medicine
DX: N83.202 Unspecified ovarian cyst, left side (principal); N83.201 Unspecified ovarian cyst, right side
CPT/HCPCS: 76830; 81003; 84703; 99284

== ENCOUNTER 2022-06-29 11:11 | Emergency (ER) | payer OTHER, MEDICAID, SELFPAY ==
[2022-06-29 11:18] VITALS: BP 134/84; PULSE 64; RESP 17; TEMP 36.5; O2SAT 98; BMI 37.5
--- NOTE | 2022-06-29 11:30 | W.ED.FEMALGU ---
HPI - Female Genitourinary General: Chief complaint: Urogenital-Female Stated complaint: lower back pain Time Seen by Provider: 06/29/22 11:24 History of Present Illness: This 26-year-old female presents to the ER for evaluation of foul-smelling urine, left flank pain and nausea that started about 3 weeks ago. Patient has no prior history of kidney stones and denies dysuria. Left flank pain was initially intermittent but this morning, its been constant. Patient denies hematuria. She is clinically stable. Associated symptoms: Reports nausea; Deny headache(s) Date of Last Menstrual Period: 12/21/21 Review of Systems Const: Denies: chills, body aches or change in appetite Eyes: Denies: change in vision or eye discharge ENMT: Denies: throat pain, dental pain or nasal discharge Card: Denies: chest pain or lightheadedness GI: Reports: nausea and other (Left flank pain, smelly urine) : Denies: dysuria Musc: Denies: neck pain or back pain Neuro: Denies: headache(s) or weakness in extremities Psych: Denies: depression Deacon/Lymph: Denies: easy bruising All/Imm: Denies: urticaria, tongue swelling or facial swelling PFSH ED PFSH: Family History Mother Hypertension Father Diabetes Grandmother Dementia Social History Smoking and tobacco status: current every day smoker Female Reproductive History: Date of last menstrual period: 12/21/21 Physical Exam Const: COMMON NORMALS: no acute distress, patient oriented x3, no limitations and alert HENMT: COMMON NORMALS: normocephalic HEAD & SCALP: normocephalic Eye: COMMON NORMALS: EOMs intact bilaterally Neck/C-Spine: COMMON NORMALS: full ROM and supple Chest: COMMONS NORMALS: normal inspection of the chest Resp: COMMON NORMALS: normal respiratory effort, No retractions, No use of accessory muscles and clear to auscultation bilaterally AUSCULTATION: clear to auscultation bilaterally Cardio: COMMON NORMALS: regular rate, regular rhythm and No murmurs present (Cardio) RATE: regular rate RHYTHM: regular rhythm GI: OTHER: Left flank tenderness. Abdomen is soft with no distention. Normal bowel sounds. No masses palpated. : COMMON NORMALS: Yes no CVA tenderness BLADDER/KIDNEY EXAM: Yes no CVA tenderness Back/Pelvis: COMMON NORMALS: no CVA tenderness and no thoracic nor lumbar tenderness Extremity: GENERAL: Yes normal exam except as noted Neuro: COMMON NORMALS: patient oriented x3 and no focal motor deficits SENSORIUM/ORIENTATION: Yes alert Psych: COMMON NORMALS: mental status grossly normal and cooperative Course Vital Signs: Vital signs: Vital Signs Temperature 97.7 F 06/29/22 11:18 Pulse Rate 64 06/29/22 11:18 Respiratory Rate 17 06/29/22 11:18 Blood Pressure 134/84 06/29/22 11:18 Pulse Oximetry 98 06/29/22 11:18 Oxygen Delivery Me thod 06/29/22 11:18 MDM - Female Medical Decision Making Medical decision making: Patient is concerned about possible kidney stones. CT abdomen/pelvis is negative for nephrolithiasis. UA is consistent with UTI. She will be treated with ciprofloxacin. She was advised to maintain adequate fluid intake and follow-up with her primary care physician. Reasons to return were discussed. Lab Data 06/29/22 12:08 06/29/22 12:08 Radiology Impressions Abdomen/Pelvis CT 06/29/22 12:12 IMPRESSION: 1. Limited noncontrast examination without CT evidence of acute intra-abdominal or pelvic pathology. 2. Additional findings, as above. Laboratory Results WBC 11.8 10^3/uL (4.0-10.0) H 06/29/22 12:08 RBC 4.77 10^6/uL (4.1-5.3) 06/29/22 12:08 Hgb 12.8 g/dL (11.5-15.3) 06/29/22 12:08 Hct 40.3 % (37.0-47.0) 06/29/22 12:08 MCV 84.5 fl (81-99) 06/29/22 12:08 MCH 26.8 pg (28.0-34.0) L 06/29/22 12:08 MCHC 31.8 g/dL (30.0-36.0) 06/29/22 12:08 RDW 13.6 % (12.1-15.1) 06/29/22 12:08 Plt Count 371 10^3/cmm (130-400) 06/29/22 12:08 MPV 10.6 fL (7.4-10.4) H 06/29/22 12:08 Neut % (Auto) 56.0 % 06/29/22 12:08 Lymph % (Auto) 31.3 % 06/29/22 12:08 [place] % (Auto) 6.5 % 06/29/22 12:08 Eos % (Auto) 4.6 % 06/29/22 12:08 Baso % (Auto) 1.3 % 06/29/22 12:08 Neut # (Auto) 6.60 10^3/uL (1.8-7.7) 06/29/22 12:08 Lymph # (Auto) 3.7 10^3/uL (0.8-4.8) 06/29/22 12:08 [place] # (Auto) 0.8 10^3/uL (0.2-0.9) 06/29/22 12:08 Eos # (Auto) 0.5 10^3/uL (0.0-0.8) 06/29/22 12:08 Baso # (Auto) 0.2 10^3/uL (0.0-0.1) H 06/29/22 12:08 Nucleated RBC % (auto) 0 % 06/29/22 12:08 Nucleated RBCs # 0.0 /100WBC 06/29/22 12:08 Sodium 141 mmol/L (136-145) 06/29/22 12:08 Potassium 3.9 mmol/L (3.5-5.1) 06/29/22 12:08 Chloride 104 mmol/L (98-107) 06/29/22 12:08 Carbon Dioxide 26 mmol/L (22-29) 06/29/22 12:08 Anion Gap 14.9 (5-19) 06/29/22 12:08 BUN 10 mg/dL (6-20) 06/29/22 12:08 Creatinine 0.6 mg/dL (0.5-0.9) 06/29/22 12:08 GFR Calculation 121.8 mL/min (90-130) 06/29/22 12:08 Glucose 101 mg/dL (65-115) 06/29/22 12:08 Calculated Osmolality 291 mOsm/kg (285-295) 06/29/22 12:08 Calcium 9.3 mg/dL (8.5-10.5) 06/29/22 12:08 Total Bilirubin 0.8 mg/dL (0.15-1.2) 06/29/22 12:08 AST 13 U/L (0-32) 06/29/22 12:08 ALT 11 U/L (0-33) 06/29/22 12:08 Alkaline Phosphatase 105 U/L (35-105) 06/29/22 12:08 Total Protein 7.0 g/dL (6.6-8.7) 06/29/22 12:08 Albumin 4.3 g/dL (3.5-5.2) 06/29/22 12:08 Globulin 2.7 g/dL (1.3-4.6) 06/29/22 12:08 HCG, Qual Negative (Negative) 06/29/22 12:08 Urine Color [place] (Yellow) 06/29/22 11:45 Urine Appearance Cloudy (CLEAR) A 06/29/22 11:45 Urine pH 6 (5-7) 06/29/22 11:45 Ur Specific [place] 1.010 (1.005-1.030) 06/29/22 11:45 Urine Protein 1+ (Negative) H 06/29/22 11:45 Urine Glucose (UA) Norm (Normal) 06/29/22 11:45 Urine Ketones 1+ (Negative) H 06/29/22 11:45 Urine Blood 3+ (Negative) H 06/29/22 11:45 Urine Nitrate Positive (Negative) H 06/29/22 11:45 Urine Bilirubin Neg (Negative) 06/29/22 11:45 Urine Urobilinogen Norm mg/dL (Negative) 06/29/22 11:45 Ur Leukocyte Esterase 1+ (Negative) H 06/29/22 11:45 Urine RBC Too numerous to cnt /hpf (0-2) H 06/29/22 11:45 Urine WBC 10-15 /hpf (0-5) H 06/29/22 11:45 Ur Squamous Epith Cells 5-10 /hpf (0-5) H 06/29/22 11:45 Amorphous Sediment Not Reportable 06/29/22 11:45 Urine Bacteria 2+ /hpf (NONE) H 06/29/22 11:45 Discharge Plan Discharge Patient Disposition: Home Clinical Impression: Urinary tract infection Condition: Stable Prescriptions: New ciprofloxacin HCl 500 mg tablet 500 mg PO Q12H Qty: 10 0RF tramadol 50 mg tablet 50 mg PO Q6H PRN (Reason: pain) Qty: 20 0RF No Action Zoloft 25 mg Tablet 25 mg PO DAILY ibuprofen 800 mg Tablet 800 mg PO TID Qty: 45 0RF diclofenac sodium 75 mg tablet,delayed release (DR/EC) 75 mg PO Q12H PRN (Reason: pain) Qty: 20 0RF Discharge Orders: Discharge ED (Routine); Ordered 06/29/22 Ordered By: Hernán Hutchinson Referrals: Rico Kellogg MD [Primary Care Provider] - Discharge Diet: Usual diet Discharge Activity: Resume usual activity Patient Instructions: Opioid Safety, Pain Management Activity Restrictions/Additional Instructions: Take ciprofloxacin as prescribed. Maintain adequate fluid intake Take tramadol as needed for pain. Follow-up with your primary care physician in 3 to 5 days for reevaluation. Return with new or worsening symptoms. 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
--- NOTE | 2022-06-29 12:12 | CTR_ITS ---
PROCEDURE INFORMATION: Exam: CT Abdomen And Pelvis Without Contrast Exam date and time: 06/29/2022 12:58 PM Age: 26 years old Clinical indication: Abdominal pain; Flank; Left; Prior surgery; Surgery date: 6+ months; Surgery type: Gb; Additional info: Left flank pain TECHNIQUE: Imaging protocol: Computed tomography of the abdomen and pelvis without contrast. Axial, coronal and sagittal reformatted images were created and reviewed. Radiation optimization: All CT scans at this facility use at least one of these dose optimization techniques: automated exposure control; mA and/or kV adjustment per patient size (includes targeted exams where dose is matched to clinical indication); or iterative reconstruction. Other protocol: This patient has received 0 known CTs and 0 known cardiac nuclear medicine studies in the 12 months prior to the current study. COMPARISON: CR XR acute abdomen series [id number] 05/24/2017 1:37 PM RADIATION DOSE METRICS: Total DLP (mGy-cm): 1000.96 FINDINGS: Liver: Unremarkable. Gallbladder and bile ducts: Status post cholecystectomy. No biliary ductal dilatation. Pancreas: Unremarkable. Spleen: Mild splenomegaly. Adrenal glands: Normal. No mass. Kidneys and ureters: No mass. No radiodense calculi. No hydronephrosis. Stomach and bowel: No bowel wall thickening. No obstruction. No pneumatosis. Appendix: Normal. Intraperitoneal space: No free fluid. No organized fluid collection. No free air. Vasculature: Unremarkable. No aneurysm. Lymph nodes: Small mesenteric lymph nodes, nonspecific in appearance. No pathologically enlarged lymph nodes. Urinary bladder: Unremarkable as visualized. Reproductive: Unremarkable. Bones/joints: No acute osseous abnormality. Soft tissues: Tiny, fat containing umbilical hernia. CT/CT abdomen pelvis wo con [id number] IMPRESSION: 1. Limited noncontrast examination without CT evidence of acute intra-abdominal or pelvic pathology. 2. Additional findings, as above.
[2022-06-29 12:13] LABS: Urine Appearance Cloudy (CLEAR); Urine Color Amber (Yellow)
[2022-06-29 12:14] LABS: Add Urine Microscopic? YES; Bilirubin Urine Neg (Negative); Blood Urine 3+ (Negative); Glucose Urine UA Norm (Normal); Ketones Urine 1+ (Negative); Leukocyte Esterase Urine 1+ (Negative); Nitrate Urine Positive (Negative); Protein Urine 1+ (Negative); Urobilinogen Urine Norm (Negative); pH Urine 6 (5-7)
[2022-06-29] MEDS: ketorolac 30 mg/mL INJ IVP (12:16)
[2022-06-29 12:17] LABS: RBC Urine TOO NUMEROUS TO CNT /hpf (0-2)
[2022-06-29 12:18] LABS: Add Urine Culture? Yes; Bacteria Urine 2+ /hpf
[2022-06-29 12:19] LABS: Basophils # 0.2 10^3/uL (0.0-0.1); Basophils % 1.3 %; Eosinophils # 0.5 10^3/uL (0.0-0.8); Eosinophils % 4.6 %; Hematocrit 40.3 % (37.0-47.0); Hemoglobin 12.8 g/dL (11.5-15.3); Lymphocytes # 3.7 10^3/uL (0.8-4.8); Lymphocytes % 31.3 %; Mean Corpuscular HGB Conc 31.8 g/dL (30.0-36.0); Mean Corpuscular Hemoglobin 26.8 pg (28.0-34.0); Mean Corpuscular Volume 84.5 fl (81-99); Mean Platelet Volume 10.6 fL (7.4-10.4); Monocytes # 0.8 10^3/uL (0.2-0.9); Monocytes % 6.5 %; Nucleated Red Blood Cells % 0 %; Platelet Count 371 10^3/cmm (130-400); Red Blood Count 4.77 10^6/uL (4.1-5.3); Red Cell Distribution Width 13.6 % (12.1-15.1); White Blood Count 11.8 10^3/uL (4.0-10.0)
[2022-06-29 12:43] LABS: Alanine Aminotransferase 11 U/L (0-33); Albumin Level 4.3 g/dL (3.5-5.2); Alkaline Phosphatase 105 U/L (35-105); Anion Gap 14.9 (5-19); Aspartate Amino Transferase 13 U/L (0-32); Blood Urea Nitrogen 10 mg/dL (6-20); Calcium 9.3 mg/dL (8.5-10.5); Carbon Dioxide 26 mmol/L (22-29); Chloride 104 mmol/L (98-107); Globulin 2.7 g/dL (1.3-4.6); Glomerular Filtration Rate 121.8 mL/min (90-130); Glucose 101 mg/dL (65-115); Osmolality Calculated 291 mOsm/kg (285-295); Potassium 3.9 mmol/L (3.5-5.1); Sodium 141 mmol/L (136-145); Total Bilirubin 0.8 mg/dL (0.15-1.2)
[2022-06-29 12:46] LABS: HCG, Serum Qual Negative (Negative)
[2022-06-29] MEDS: ciprofloxacin 500 mg Tablet PO (14:24)
== END 2022-06-29 14:28 | disposition home or self-care (01) ==
PROVIDERS: Emergency Provider Family Medicine; PCP Family Medicine
DX: N39.0 Urinary tract infection, site not specified (principal); F17.210 Nicotine dependence, cigarettes, uncomplicated
CPT/HCPCS: 74176; 80053; 81001; 84703; 85025; 87077; 87086; 87186; 96374; 99284; J1885

== ENCOUNTER 2022-07-02 21:25 | Emergency (ER) | payer OTHER, SELFPAY ==
[2022-07-02 21:31] VITALS: BP 121/86; PULSE 89; RESP 16; TEMP 36.7; O2SAT 96; BMI 37.7
[2022-07-02 22:13] VITALS: BP 128/71; PULSE 78; RESP 16; O2SAT 99
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
== END 2022-07-02 22:29 | disposition home or self-care (01) ==
PROVIDERS: Emergency Provider Emergency Medicine; PCP Family Medicine
DX: S01.511A Laceration without foreign body of lip, initial encounter (principal); F17.210 Nicotine dependence, cigarettes, uncomplicated; Y04.0XXA Assault by unarmed brawl or fight, initial encounter; Y92.239 Unspecified place in hospital as the place of occurrence of the external cause; Y99.0 Civilian activity done for income or pay
CPT/HCPCS: 99282

== ENCOUNTER 2023-02-07 17:16 | Emergency (ER) | payer OTHER, MEDICAID, SELFPAY ==
[2023-02-07] VITALS (9 sets, daily range): BP systolic 113–145; BP diastolic 77–83; PULSE 97–130; RESP 17–18; TEMP 37.4; O2SAT 96–100; BMI 34.4
--- NOTE | 2023-02-07 17:19 | XRR_ITS ---
PROCEDURE INFORMATION: Exam: XR Chest Exam date and time: 02/07/2023 5:41 PM Age: 27 years old Clinical indication: Other: Covid symptoms; Additional info: SOB TECHNIQUE: Imaging protocol: Radiologic exam of the chest. Views: 1 view. COMPARISON: CR XR chest 1V [id number] 04/10/2017 9:43 PM FINDINGS: Lungs: Unremarkable. No consolidation. Pleural spaces: Unremarkable. No pleural effusion. No pneumothorax. Heart/Mediastinum: Unremarkable. No cardiomegaly. Bones/joints: Unremarkable. XR/XR chest 1V portable [id number] IMPRESSION: No acute findings.
--- NOTE | 2023-02-07 17:42 | ED_ITS ---
HPI - COVID General: Chief Complaint: COVID symptoms Stated Complaint: Cough, shortness of breath, chest tightness Time Seen by Provider: 02/07/23 17:21 Source: patient Mode of arrival: ambulatory Limitations: no limitations History of Present Illness: Patient reports COVID exposure recently and started having productive cough, chest tightness, wheezing, nasal drainage, sneezing and general malaise about 3 days ago. She is former smoker and for prior history of DVTs. She is not currently on Eliquis but is taking baby aspirin daily. She reports yesterday she began having tightness across her chest with every breath she took an cough. Denies hemoptysis. She has had fever chills. No nausea, vomiting, diarrhea or abdominal pain other than some soreness in her abdominal muscles from coughing so much. She has been breathing and essential oils but otherwise not taken any [id number] cold or flu medications. She denies . She reports her DVTs were related to being overweight, being on control and being a smoker. COVID 19 common symptoms: positive fever(s), chills, productive cough, dyspnea, body aches, headache(s) and nasal congestion; negative nausea, vomiting or diarrhea COVID 19 other sytmptoms: positive chest pain COVID Results: SARS-CoV-2 RNA (RT-PCR) Detected (NOT DETECTED) A 04/02/20 09: 36 SARS-CoV-2 (PCR) Not detected (NOT DETECT) 02/07/23 18:05 Coronavirus Type 229E (PCR) Not detected (NOT DETECT) 02/07/23 18:05 Review of Systems Const: Reports: fever(s), chills, body aches and malaise ENMT: Reports: nasal discharge and nasal congestion Card: Reports: chest pain; Denies: edema or swelling of feet/ankles Resp: Reports: dyspnea, productive cough, wheezing and chest congestion GI: Denies: abdominal pain, nausea, vomiting or diarrhea : Denies: difficulty voiding or dysuria Musc: Denies: neck pain, back pain or extremity swelling Skin/Breast: Denies: rash or erythema Neuro: Reports: headache(s) PFSH ED PFSH: Medical History No pertinent past medical history Family History Mother Hypertension Father Diabetes Grandmother Dementia Social History Smoking and tobacco status: current every day smoker Physical Exam Const: COMMON NORMALS: no acute distress, patient oriented x3 and alert HENMT: COMMON NORMALS: normocephalic HEAD & SCALP: normocephalic Eye: COMMON NORMALS: conjunctivae normal CONJUNCTIVA: Yes conjunctivae normal Neck/C-Spine: COMMON NORMALS: negative for no meningeal signs Resp: EFFORT & INSPECTION: Yes able to speak in complete sentences and No respiratory distress AUSCULTATION: no rales, no rhonchi and wheezes expi ratory wheezes, inspiratory wheezes and throughout Cardio: COMMON NORMALS: regular rate and regular rhythm RATE: regular rate and tachycardic RHYTHM: regular rhythm Neuro: COMMON NORMALS: patient oriented x3 and moves all extremities SENSORIUM/ORIENTATION: Yes alert MENINGEAL SIGNS: No no meningeal signs Course ED course: Patient given p.o. prednisone and breathing treatments with improvement in wheezing and shortness of breath and chest tightness report Vital Signs: Vital signs: Vital Signs Temperature 99.3 F 02/07/23 17:29 Pulse Rate 97 02/07/23 20:35 Respiratory Rate 18 02/07/23 20:28 Blood Pressure 113/77 02/07/23 19:10 Pulse Oximetry 99 02/07/23 20:35 Oxygen Delivery Me thod Room Air 02/07/23 20:28 MDM - COVID Medical Decision Making Patient is 27-year-old female presents with 3 days of cough and upper respiratory symptoms associated with wheezing and chest tightness. On exam she has bilateral inspiratory next-door wheezing with mild tachycardia and low-grade fever. She was treated with DuoNeb, albuterol inhaler, and another DuoNeb as w ell as p.o. prednisone. Patient declined IV and IV steroids at this time. Chest x-ray shows no acute findings. No pneumonia or infiltrates CBC shows a mild leukocytosis, CMP is unremarkable, D-dimer is negative. COVID is negative. She is stable for discharge home. Advised continued symptomatic and supportive treatment, albuterol inhaler as instructed for wheezing or chest tightness and prednisone for bronchitis. Do not feel she would benefit from further emergent treatment or antibiotic therapy at this time is likely viral in nature. Return precautions given Differential Diagnosis Likely COVID 19, pneumonia, pulmonary embolism and other (URI, bronchitis) Lab Data COVID-negative, adenovirus/Rhinovirus Positive 02/07/23 17:59 02/07/23 17:59 Radiology Impressions Chest X-Ray 02/07/23 17:19 IMPRESSION: No acute findings. Laboratory Results WBC 14.84 10^3/uL (3.29-11.43) H 02/07/23 17:59 RBC 5.37 10^6/uL (3.85-5.65) 02/07/23 17:59 Hgb 14.50 g/dL (11.27-16.99) 02/07/23 17:59 Hct 44.1 % (36-47) 02/07/23 17:59 MCV 82.1 fl (85-98) L 02/07/23 17:59 MCH 27.0 pg (27-33) 02/07/23 17:59 MCHC 32.9 g/dL (30-55) 02/07/23 17:59 RDW 13.5 % (12.1-15.1) 02/07/23 17:59 Plt Count 356 10^3/cmm (157-399) 02/07/23 17:59 MPV 10.4 fL (7.4-10.4) 02/07/23 17:59 Neut % (Auto) 80.9 % 02/07/23 17:59 Lymph % (Auto) 10.9 % 02/07/23 17:59 [place] % (Auto) 6.1 % 02/07/23 17:59 Eos % (Auto) 1.1 % 02/07/23 17:59 Baso % (Auto) 0.7 % 02/07/23 17:59 Neut # (Auto) 12.00 10^3/uL (1.8-7.7) H 02/07/23 17:59 Lymph # (Auto) 1.6 10^3/uL (0.8-4.8) 02/07/23 17:59 [place] # (Auto) 0.9 10^3/uL (0.2-0.9) 02/07/23 17:59 Eos # (Auto) 0.2 10^3/uL (0.0-0.8) 02/07/23 17:59 Baso # (Auto) 0.1 10^3/uL (0.0-0.1) 02/07/23 17:59 Nucleated RBC % (auto) 0 % 02/07/23 17:59 Nucleated RBCs # 0.0 /100WBC 02/07/23 17:59 D-Dimer 0.47 ug/mLFEU (0-0.59) 02/07/23 17:59 Sodium 141 mmol/L (136-145) 02/07/23 17:59 Potassium 3.9 mmol/L (3.5-5.1) 02/07/23 17:59 Chloride 105 mmol/L (98-107) 02/07/23 17:59 Carbon Dioxide 26 mmol/L (22-29) 02/07/23 17:59 Anion Gap 13.9 (5-19) 02/07/23 17:59 BUN 10 mg/dL (6-20) 02/07/23 17:59 Creatinine 0.6 mg/dL (0.5-0.9) 02/07/23 17:59 GFR Calculation 120.8 mL/min (90-130) 02/07/23 17:59 Glucose 113 mg/dL (65-115) 02/07/23 17:59 Calculated Osmolality 292 mOsm/kg (285-295) 02/07/23 17:59 Calcium 9.1 mg/dL (8.5-10.5) 02/07/23 17:59 Total Bilirubin 0.9 mg/dL (0.15-1.2) 02/07/23 17:59 AST 18 U/L (0-32) 02/07/23 17:59 ALT 20 U/L (0-33) 02/07/23 17:59 Alkaline Phosphatase 105 U/L (35-105) 02/07/23 17:59 Total Protein 7.7 g/dL (6.6-8.7) 02/07/23 17:59 Albumin 4.6 g/dL (3.5-5.2) 02/07/23 17:59 Globulin 3.1 g/dL (1.3-4.6) 02/07/23 17:59 Adenovirus (PCR) Detected (NOT DETECT) A 02/07/23 20:13 Coronavirus 229E (PCR) Not detected (NOT DETECT) 02/07/23 18:05 Human Metapneumovir PCR Not detected (NOT DETECT) 02/07/23 20:13 Entero/Rhino (PCR) Detected (NOT DETECT) A 02/07/23 20:13 SARS-CoV-2 (PCR) Not detected (NOT DETECT) 02/07/23 18:05 SARS-CoV-2 RNA (RT-PCR) Detected (NOT DETECTED) A 04/02/20 09: 36 SARS-CoV-2 (PCR) Not detected (NOT DETECT) 02/07/23 18:05 Coronavirus Type 229E (PCR) Not detected (NOT DETECT) 02/07/23 18:05 All radiology interpretation(s) finalized by discharge ED provider radiology interpretation(s): No acute cardiopulmonary findings per radiology report Discharge Plan Discharge Patient Disposition: Home Clinical Impression: Bronchitis, Close exposure to severe acute respiratory syndrome coronavirus 2 (SARS-CoV-2), Viral infection Condition: Stable Prescriptions: New prednisone 20 mg tablet 60 mg PO 1XD 5 Days Qty: 15 0RF No Action Zoloft 25 mg Tablet 25 mg PO DAILY ibuprofen 800 mg Tablet 800 mg PO TID Qty: 45 0RF diclofenac sodium 75 mg tablet,delayed release (DR/EC) 75 mg PO Q12H PRN (Reason: pain) Qty: 20 0RF ciprofloxacin HCl 500 mg tablet 500 mg PO Q12H Qty: 10 0RF tramadol 50 mg tablet 50 mg PO Q6H PRN (Reason: pain) Qty: 20 0RF Discharge Orders: Discharge ED (Routine); Ordered 02/07/23 Ordered By: Patricia Dewitt Referrals: Rico Kellogg MD [Primary Care Provider] - 4-7 days Discharge Diet: Regular Patient Instructions: Acute Bronchitis (ED), COVID-19 (Coronavirus Disease 2019) (ED) Activity Restrictions/Additional Instructions: Push fluids and rest until feeling better Use albuterol inhaler 1-2 puffs every 3-4 hours as needed for wheezing or chest tightness Take prednisone 60 mg daily for the next 5 days [id number] cold and flu medications may be beneficial Self quarantine until results of COVID test are known. If positive you must self quarantine for a total of 5 days and then mandatory mask for another 5 days for total of 10 days. Return to the ER for new or worsening symptoms. Follow-up with your family physician in clinic. 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
[2023-02-07] MEDS: predniSONE 20 mg Tablet 60 MG PO (18:01)
[2023-02-07] MEDS: acetaminophen 325 mg Tablet 650 MG PO (18:01)
[2023-02-07] MEDS: guaiFENesin 600 mg Tablet 1200 MG PO (18:02)
[2023-02-07 18:04] LABS: Basophils # 0.1 10^3/uL (0.0-0.1); Basophils % 0.7 %; Eosinophils # 0.2 10^3/uL (0.0-0.8); Eosinophils % 1.1 %; Hematocrit 44.1 % (36-47); Lymphocytes # 1.6 10^3/uL (0.8-4.8); Lymphocytes % 10.9 %; Mean Corpuscular HGB Conc 32.9 g/dL (30-55); Mean Corpuscular Volume 82.1 fl (85-98); Mean Platelet Volume 10.4 fL (7.4-10.4); Monocytes # 0.9 10^3/uL (0.2-0.9); Monocytes % 6.1 %; Neutrophils % 80.9 %; Nucleated Red Blood Cells % 0 %; Platelet Count 356 10^3/cmm (157-399); Red Blood Count 5.37 10^6/uL (3.85-5.65); Red Cell Distribution Width 13.5 % (12.1-15.1); White Blood Count 14.84 10^3/uL (3.29-11.43)
[2023-02-07] MEDS: ipratropium-albuterol 3 mL Neb INHALATION ×2 (18:17→20:30)
[2023-02-07] MEDS: albuterol 2.5 mg/3 mL Neb INHALATION (18:17)
[2023-02-07 18:26] LABS: D Dimer 0.47 ug/mLFEU (0-0.59)
[2023-02-07 18:35] LABS: Alanine Aminotransferase 20 U/L (0-33); Albumin Level 4.6 g/dL (3.5-5.2); Alkaline Phosphatase 105 U/L (35-105); Anion Gap 13.9 (5-19); Aspartate Amino Transferase 18 U/L (0-32); Blood Urea Nitrogen 10 mg/dL (6-20); Calcium 9.1 mg/dL (8.5-10.5); Carbon Dioxide 26 mmol/L (22-29); Chloride 105 mmol/L (98-107); Globulin 3.1 g/dL (1.3-4.6); Glomerular Filtration Rate 120.8 mL/min (90-130); Glucose 113 mg/dL (65-115); Osmolality Calculated 292 mOsm/kg (285-295); Potassium 3.9 mmol/L (3.5-5.1); Sodium 141 mmol/L (136-145); Total Bilirubin 0.9 mg/dL (0.15-1.2); Total Protein 7.7 g/dL (6.6-8.7)
[2023-02-07] MEDS: albuterol 8 gm MDI 2 PUFF INHALATION (19:12)
[2023-02-07 20:10] LABS: Adenovirus Detected (NOT DETECT); Chlamydia Pneumoniae Not Detected (NOT DETECT); Coronavirus 229E,HKU1,NL63,OC4 Not Detected (NOT DETECT); Human Metapneumovirus Not Detected (NOT DETECT); Human Rhinovirus/Enterovirus Detected (NOT DETECT); Influenza A Not Detected (NOT DETECT); Influenza A H1 Not Detected (NOT DETECT); Influenza A H1-2009 Not Detected (NOT DETECT); Influenza A H3 Not Detected (NOT DETECT); Influenza B Not Detected (NOT DETECT); Mycoplasma Pneumoniae Not Detected (NOT DETECT); Parainfluenza Virus Type 1 Not Detected (NOT DETECT); Parainfluenza Virus Type 2 Not Detected (NOT DETECT); Parainfluenza Virus Type 3 Not Detected (NOT DETECT); Parainfluenza Virus Type 4 Not Detected (NOT DETECT); Respiratory Syncytial Virus A Not Detected (NOT DETECT); Respiratory Syncytial Virus B Not Detected (NOT DETECT); SARS-COV-2 Not Detected (NOT DETECT)
[2023-02-07 20:17] LABS: Adenovirus Detected (NOT DETECT); Human Metapneumovirus Not Detected (NOT DETECT); Human Rhinovirus/Enterovirus Detected (NOT DETECT); Results from GE
== END 2023-02-07 20:36 | disposition home or self-care (01) ==
PROVIDERS: Emergency Provider Nurse Practitioner Family; PCP Family Medicine
DX: J40 Bronchitis, not specified as acute or chronic (principal); B34.9 Viral infection, unspecified; Z20.822 Contact with and (suspected) exposure to COVID-19; F17.210 Nicotine dependence, cigarettes, uncomplicated
CPT/HCPCS: 36415; 71045; 80053; 85025; 85378; 87635; 87798; 87801; 94640; 99284; J3535; J7512; J7613

== ENCOUNTER 2023-07-28 20:15 | Emergency (ER) | payer SELFPAY ==
--- NOTE | 2023-07-28 20:20 | XRR_ITS ---
PROCEDURE INFORMATION: Exam: XR Left Foot Exam date and time: 07/28/2023 8:31 PM Age: 27 years old Clinical indication: Injury or trauma; Fall; Blunt trauma; Foot; Left TECHNIQUE: Imaging protocol: Radiologic exam of the left foot. Views: 3 or more views. COMPARISON: No relevant prior studies available. FINDINGS: Bones/joints: Bipartite sesamoid. Secondary ossification adjacent to the navicular. The bones are intact. No fracture. The oblique view is suboptimally positioned. Soft tissues: Normal. XR/XR foot LT min 3V* [id number] IMPRESSION: No acute findings.
[2023-07-28 20:37] VITALS: BP 116/84; PULSE 84; RESP 16; TEMP 36.6; O2SAT 96; BMI 37.4
--- NOTE | 2023-07-28 20:49 | ED_ITS ---
HPI - Extremity Problem General: Chief complaint: Extremity Injury, Lower Stated complaint: left foot injury Time Seen by Provider: 07/28/23 20:23 Source: patient Mode of arrival: ambulatory Limitations: no limitations History of Present Illness: 27-year-old female states that she is ru nning in the house slipped on the carpet and hit the bottom of her left foot on the door frame she does have a laceration at the base of her left fourth toe she has minimal pain denies any other injuries Associated symptoms: Deny chest pain, fever(s) or rash Review of Systems Const: Denies: fever(s) ENMT: Denies: throat pain Card: Denies: chest pain GI: Denies: abdominal pain Musc: Reports: extremity pain Skin/Breast: Denies: rash Psych: Denies: depression PFSH ED PFSH: Medical History No pertinent past medical history Family History Mother Hypertension Father Diabetes Grandmother Dementia Social History Smoking and tobacco/nicotine status: current every day tobacco/nicotine user Female Reproductive History: Date of last menstrual period: 07/25/23 Physical Exam Const: COMMON NORMALS: no acute distress and patient oriented x3 HENMT: COMMON NORMALS: normocephalic HEAD & SCALP: normocephalic Eye: COMMON NORMALS: conjunctivae normal CONJUNCTIVA: Yes conjunctivae normal Chest: COMMONS NORMALS: normal inspection of the chest Resp: COMMON NORMALS: normal respiratory effort Extremity: NARRATIVE EXTREMITY EXAM: Laceration on the palmar's aspect of the proximal portion of her left fourth toe Neuro: COMMON NORMALS: patient oriented x3 Psych: COMMON NORMALS: mental status grossly normal Skin: COMMON NORMALS: no rashes or lesions noted GENERAL SKIN EXAM: no rashes or lesions noted Procedures Laceration Laceration 1: Site: lower extremity (left fourt toe) Side (If applicable): left Size (cm): 1 Description: linear Depth: simple, single layer Pre-repair: wound explored and irrigated extensively Skin layer closed with: other (dermabond) Course Vital Signs: Vital signs: Vital Signs Temperature 97.8 F 07/28/23 20:37 Pulse Rate 84 07/28/23 20:37 Respiratory Rate 16 07/28/23 20:37 Blood Pressure 116/84 07/28/23 20:37 Pulse Oximetry 96 07/28/23 20:37 Oxygen Delivery Me thod Room Air 07/28/23 20:37 MDM - Extremity (Nontraumatic) Medical Decision Making Patient presents here with a laceration to left fourth toe at the base of the toe on the palmar aspect of the superficial laceration was repaired with tissue adhesive patient is to wear Ortho shoe for 1 week she had a tetanus updated she stable for discharge XR interpretation done by ED provider, pending radiology final review ED provider radiology interpretation(s): xr l foot: no fx Discharge Plan Discharge Patient Disposition: Home Clinical Impression: Laceration of toe, left Qualifiers: Encounter type: initial encounter Toe: lesser toe Damage to nail status: without damage Foreign body presence: without foreign body Qualified Code(s): S91.115A - Laceration without foreign body of left lesser toe(s) without damage to nail, initial encounter Condition: Stable Prescriptions: No Action Zoloft 25 mg Tablet 25 mg PO DAILY ibuprofen 800 mg Tablet 800 mg PO TID Qty: 45 0RF diclofenac sodium 75 mg tablet,delayed release (DR/EC) 75 mg PO Q12H PRN (Reason: pain) Qty: 20 0RF ciprofloxacin HCl 500 mg tablet 500 mg PO Q12H Qty: 10 0RF tramadol 50 mg tablet 50 mg PO Q6H PRN (Reason: pain) Qty: 20 0RF Discharge Orders: Discharge ED (Routine); Ordered 07/28/23 Ordered By: Jerman Jorgensen Referrals: Rico Kellogg MD [Primary Care Provider] - 4-7 days Discharge Diet: Advance as tolerated Discharge Activity: Resume usual activity Patient Instructions: Skin Adhesive Care (ED) Coding Level of Care Code ED Supervisor Photoengraving for Mary Caal
[2023-07-28 22:14] VITALS: PULSE 80; RESP 16; O2SAT 98
== END 2023-07-28 22:07 | disposition home or self-care (01) ==
PROVIDERS: Emergency Provider Emergency Medicine; PCP Family Medicine
DX: S91.115A Laceration without foreign body of left lesser toe(s) without damage to nail, initial encounter (principal); Z72.0 Tobacco use; W18.49XA Other slipping, tripping and stumbling without falling, initial encounter
CPT/HCPCS: 12001; 73630; 99283

== ENCOUNTER 2024-02-04 10:34 | Outpatient (RCR) | payer OTHER, SELFPAY | END 2024-02-23 23:59 | disposition home or self-care (01) | LOC: SPT 10:34 | PROVIDERS: PCP Physician Assistant; Visit Provider Physician Assistant | DX: M54.50 Low back pain, unspecified (principal) | CPT/HCPCS: 97110; 97161 ==

== ENCOUNTER 2024-02-21 12:17 | Inpatient (IN) | payer OTHER, SELFPAY ==
[2024-02-21] VITALS (12 sets, daily range): BP systolic 109–136; BP diastolic 72–85; PULSE 92–130; RESP 15–22; TEMP 36.8–37.4; O2SAT 91–100; BMI 37.5; BMI 37.8
--- NOTE | 2024-02-21 12:34 | XRR_ITS ---
PROCEDURE INFORMATION: Exam: XR Chest Exam date and time: 02/21/2024 1:20 PM Age: 28 years old Clinical indication: Cough and dyspnea; Additional info: Dyspnea/cough TECHNIQUE: Imaging protocol: Radiologic exam of the chest. Views: 1 view. COMPARISON: CT angio chest PE protcl [id number] 02/21/2024 1:11 PM FINDINGS: Lungs: Unremarkable. No consolidation. Pleural spaces: Unremarkable. No pleural effusion. No pneumothorax. Heart/Mediastinum: Unremarkable. No cardiomegaly. Bones/joints: Unremarkable. XR/XR chest 1V portable [id number] IMPRESSION: No acute findings.
--- NOTE | 2024-02-21 12:43 | CTR_ITS ---
PROCEDURE INFORMATION: Exam: CTA Chest With Contrast Exam date and time: 02/21/2024 1:11 PM Age: 28 years old Clinical indication: Fever and tachypnea; Additional info: Dyspnea tachycardia TECHNIQUE: Imaging protocol: Computed tomographic angiography of the chest with contrast. Exam focused on the arteries. 3D rendering (Not supervised by radiologist): MIP and/or 3D reconstructed images were created by the technologist. Radiation optimization: All CT scans at this facility use at least one of these dose optimization techniques: automated exposure control; mA and/or kV adjustment per patient size (includes targeted exams where dose is matched to clinical indication); or iterative reconstruction. Contrast material: OMNIPAQUE 350; Contrast volume: 60 ml; Contrast route: INTRAVENOUS (IV); COMPARISON: CR (CHEST, ) 02/07/2023 5:41 PM RADIATION DOSE METRICS: Total DLP (mGy-cm): 402.65 FINDINGS: Pulmonary arteries: Normal. No pulmonary emboli. Aorta: Unremarkable. No aortic aneurysm. No aortic dissection. Lungs: Patchy ground-glass opacities in bilateral upper lobes, bilateral lower lobes with segmental infiltrates in right lower and left lower lobes. Pleural spaces: Unremarkable. No pneumothorax. No pleural effusion. Heart: Unremarkable. No cardiomegaly. No pericardial effusion. Lymph nodes: Prominent bilateral hilar and subcarinal lymph nodes measuring up to 1.4 cm in the short axis in the subcarinal region. Gallbladder and biliary ducts: Post cholecystectomy. Bones/joints: Unremarkable. No acute fracture. Soft tissues: Unremarkable. CT/CT angio chest PE protcl [id number] IMPRESSION: 1. Multilobar patchy ground-glass opacities, suggestive of multilobar pneumonia. 2. Enlarged bilateral hilar and subcarinal lymph nodes, likely reactive.
--- NOTE | 2024-02-21 12:43 | ECG_ITS ---
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 Measurements Intervals [place] Rate: 116 P: 72 [place]: 133 QRS: 47 QRSD: 90 T: 27 QT: 313 QTc: 437 Interpretive Statements SINUS TACHYCARDIA POSSIBLE LEFT ATRIAL ENLARGEMENT [-0.1mV P-WAVE IN V1/V2] NONSPECIFIC ST & T-WAVE ABNORMALITY No previous ECG available for comparison Electronically Signed On 02-23-2024 18:51:37 CDT by Demetris Ragland M.D. [email or web address]/store/NU/[id number] f
--- NOTE | 2024-02-21 12:49 | ED_ITS ---
HPI - SOB/Dyspnea 2 General: Chief Complaint: Shortness of Breath/Dyspnea Stated Complaint: SOB / cough Time Seen by Provider: 02/21/24 12:34 History of Present Illness: HPI Narrative: 28-year-old female presents emergency ro om complaining of shortness of breath. She states her increasing shortness of breath for the last 5 days slight cough nonproductive no fever sweats or chills. Shortness of breath worse with ambulation. She did a home COVID test which was negative. Prior to coming in today she became so short of breath she had a syncopal episode. On arrival here she is tachycardic and tachypneic. She has a history of DVT but has been off of her anticoagulation for several years. Associated symptoms: Deny abdominal pain, chest pain or fever(s) Related Data Home Medications Medication Instructions Recorded Confirmed sertraline 25 mg tablet (Zoloft) 25 mg PO DAILY 01/20/21 01/20/21 Previous Rx's Medication Instructions Recorded ibuprofen 800 mg tablet 800 mg PO TID #45 tabs 01/21/21 diclofenac sodium 75 mg 75 mg PO Q12H PRN pain #20 tabs 02/04/22 tablet,delayed release ciprofloxacin HCl 500 mg tablet 500 mg PO Q12H #10 tabs 06/29/22 tramadol 50 mg tablet 50 mg PO Q6H PRN pain #20 tabs 06/29/22 Allergies Allergy/AdvReac Type Severity Reaction Status Date / Time Latex, Natural Rubber Allergy ALGY-Hives Verified 02/21/24 12:28 eggs Allergy Unknown Uncoded 02/21/24 12:28 Review of Systems 2 Const: Denies: fever(s) or chills Card: Denies: chest pain Resp: Reports: dyspnea and non-productive cough GI: Denies: abdominal pain : Denies: dysuria, urinary frequency or urinary urgency Musc: Denies: neck pain or back pain Skin/Breast: Denies: rash PFSH ED 2 PFSH: Medical History History of DVT (deep vein thrombosis) No pertinent past medical history Surgical History Hx of tonsillectomy Hx of cholecystectomy Family History Mother Hypertension Father Diabetes Grandmother Dementia Social History Smoking and tobacco/nicotine status: current every day tobacco/nicotine user Physical Exam 2 Const: GENERAL APPEARANCE: cooperative ORIENTATION/CONSCIOUSNESS: Yes awake, Yes oriented to person, Yes oriented to place and Yes oriented to time HENMT: COMMON NORMALS: normocephalic, atraumatic and hearing grossly normal bilaterally HEAD & SCALP: normocephalic and atraumatic Resp: COMMON NORMALS: normal respiratory effort, No retractions, No use of accessory muscles and clear to auscultation bilaterally AUSCULTATION: clear to auscultation bilaterally Cardio: COMMON NORMALS: regular rate, regular rhythm and No murmurs present (Cardio) RATE: regular rate RHYTHM: regular rhythm GI: COMMON NORMALS: Soft to palpation and No hepatosplenomegaly present A USCULTATION: Yes normoactive bowel sounds PALPATION: Yes Soft to palpation, No Tenderness to palpation present (GI), No Guarding due to palpation present (GI) and Yes No hepatosplenomegaly present Extremity: COMMON NORMALS: normal to inspection, capillary refill normal, no clubbing, cyanosis or edema, no calf tenderness and no pedal edema Neuro: SENSORIUM/ORIENTATION: Yes oriented to person, Yes oriented to place and Yes oriented to time Skin: COMMON NORMALS: no rashes or lesions noted GENERAL SKIN EXAM: no rashes or lesions noted Course 2 Vital Signs: Vital signs: Vital Signs Temperature 98.3 F 02/21/24 12:21 Pulse Rate 130 H 02/21/24 12:21 Respiratory Rate 22 H 02/21/24 12:21 Blood Pressure 118/84 02/21/24 12:21 Pulse Oximetry 94 02/21/24 12:21 Oxygen Delivery Me thod Room Air 02/21/24 12:21 MDM - SOB/Dyspnea Medical Decision Making Patient presents initially given her history of tachycardia and hypoxia suspected treated for DVT chest x-ray was normal CT shows multilobar pneumonia not noted on the CT white count elevated COVID flu and RSV are negative. Patient started on IV antibiotics treat for sepsis although her lactic acid is normal. Her tachycardia improved with sepsis fluid bolus. Discussed with hospitalist orders written Medical Records I reviewed the patient's medical records. Lab Data I reviewed the patient's lab results. 02/21/24 12:51 02/21/24 12:51 Labs/Radiology: Radiology Impressions Chest X-Ray 02/21/24 12:34 IMPRESSION: No acute findings. ADDENDUM: 02/21/24 1345 ADDENDUM: The multilobar ground-glass opacities previously seen on chest CT are not well appreciated on radiograph. Chest CTA 02/21/24 12:43 IMPRESSION: 1. Multilobar patchy ground-glass opacities, suggestive of multilobar pneumonia. 2. Enlarged bilateral hilar and subcarinal lymph nodes, likely reactive. Laboratory Results WBC 18.15 10^3/uL (3.29-11.43) H 02/21/24 12:51 RBC 5.23 10^6/uL (3.85-5.65) 02/21/24 12:51 Hgb 14.40 g/dL (11.27-16.99) 02/21/24 12:51 Hct 43.0 % (36-47) 02/21/24 12:51 MCV 82.2 fl (85-98) L 02/21/24 12:51 MCH 27.5 pg (27-33) 02/21/24 12:51 MCHC 33.5 g/dL (30-55) 02/21/24 12:51 RDW 13.6 % (12.1-15.1) 02/21/24 12:51 Plt Count 420 10^3/cmm (157-399) H 02/21/24 12:51 MPV 10.2 fL (7.4-10.4) 02/21/24 12:51 Neut % (Auto) 80.9 % 02/21/24 12:51 Lymph % (Auto) 9.1 % 02/21/24 12:51 [place] % (Auto) 7.2 % 02/21/24 12:51 Eos % (Auto) 1.9 % 02/21/24 12:51 Baso % (Auto) 0.5 % 02/21/24 12:51 Neut # (Auto) 14.67 10^3/uL (1.8-7.7) H 02/21/24 12:51 Lymph # (Auto) 1.7 10^3/uL (0.8-4.8) 02/21/24 12:51 [place] # (Auto) 1.3 10^3/uL (0.2-0.9) H 02/21/24 12:51 Eos # (Auto) 0.4 10^3/uL (0.0-0.8) 02/21/24 12:51 Baso # (Auto) 0.1 10^3/uL (0.0-0.1) 02/21/24 12:51 Nucleated RBC % (auto) 0 % 02/21/24 12:51 Nucleated RBCs # 0.0 /100WBC 02/21/24 12:51 Sodium 141 mmol/L (136-145) 02/21/24 12:51 Potassium 3.5 mmol/L (3.5-5.1) 02/21/24 12:51 Chloride 102 mmol/L (98-107) 02/21/24 12:51 Carbon Dioxide 22 mmol/L (22-29) 02/21/24 12:51 Anion Gap 20.6 (5-19) H 02/21/24 12:51 BUN 9 mg/dL (6-20) 02/21/24 12:51 Creatinine 0.6 mg/dL (0.5-0.9) 02/21/24 12:51 GFR Calculation 119.9 mL/min (90-130) 02/21/24 12:51 Glucose 124 mg/dL (65-115) H 02/21/24 12:51 Calculated Osmolality 292 mOsm/kg (285-295) 02/21/24 12:51 Lactic Acid 1.1 mmol/L (0.5-2.2) 02/21/24 12:51 Calcium 9.1 mg/dL (8.5-10.5) 02/21/24 12:51 Total Bilirubin 1.1 mg/dL (0.15-1.2) 02/21/24 12:51 AST 20 U/L (0-32) 02/21/24 12:51 ALT 14 U/L (0-33) 02/21/24 12:51 Alkaline Phosphatase 115 U/L (35-105) H 02/21/24 12:51 Creatine Kinase 63 U/L (26-192) 02/21/24 12:51 Troponin T Baseline < 6 ng/L (0-10) 02/21/24 12:51 Troponin T 120 Minute 6.00 ng/L (0-10) 02/21/24 14:41 Delta Troponin T 0.74598 ABS# (0-10) 02/21/24 14:41 C-Reactive Protein 77.7 mg/L (0.0-4.9) H 02/21/24 12:51 NT-Pro-B Natriuret Pep 57 pg/mL (0-125) 02/21/24 12:51 Total Protein 7.7 g/dL (6.6-8.7) 02/21/24 12:51 Albumin 4.7 g/dL (3.5-5.2) 02/21/24 12:51 Globulin 3.0 g/dL (1.3-4.6) 02/21/24 12:51 Lipase 13 U/L (13-60) 02/21/24 12:51 Procalcitonin 0.05 ng/mL (0-0.5) 02/21/24 12:51 Ser , Semi-Qnt 1.00 mIU/mL 02/21/24 12:51 Urine Color Dark yellow (Yellow) A 02/21/24 12:58 Urine Appearance Clear (CLEAR) 02/21/24 12:58 Urine pH 5.5 (5-7) 02/21/24 12:58 Ur Specific Deep Gap 1.026 (1.005-1.030) 02/21/24 12:58 Urine Protein 1+ (Negative) A 02/21/24 12:58 Urine Glucose (UA) Negative (Normal) 02/21/24 12:58 Urine Ketones 1+ (Negative) H 02/21/24 12:58 Urine Blood Negative (Negative) 02/21/24 12:58 Urine Nitrate Negative (Negative) 02/21/24 12:58 Urine Bilirubin Negative (Negative) 02/21/24 12:58 Urine Urobilinogen 1.0 mg/dL (Negative) 02/21/24 12:58 Ur Leukocyte Esterase Trace (Negative) A 02/21/24 12:58 Urine RBC 0-2 /hpf (0-2) 02/21/24 12:58 Urine WBC 6-10 /hpf (0-5) 02/21/24 12:58 Ur Squamous Epith Cells 6-10 /hpf (0-5) 02/21/24 12:58 Amorphous Sediment Not Reportable 02/21/24 12:58 Urine Bacteria Trace /hpf (NONE) 02/21/24 12:58 Hyaline Casts 0.81 /lpf 02/21/24 12:58 Coronavirus (PCR) Negative (Negative) 02/21/24 12:51 Influenza A (PCR) Negative (Negative) 02/21/24 12:51 Influenza Type B (PCR) Negative (Negative) 02/21/24 12:51 RSV (PCR) Negative (Negative) 02/21/24 12:51 All radiology interpretation(s) finalized by discharge Discharge Plan Discharge Patient Disposition: Admitted As Inpatient Clinical Impression: Multifocal pneumonia, Acute hypoxic respiratory failure, History of DVT (deep vein thrombosis) Condition: Stable Prescriptions: No Action Zoloft 25 mg Tablet 25 mg PO DAILY ibuprofen 800 mg Tablet 800 mg PO TID Qty: 45 0RF diclofenac sodium 75 mg tablet,delayed release (DR/EC) 75 mg PO Q12H PRN (Reason: pain) Qty: 20 0RF ciprofloxacin HCl 500 mg tablet 500 mg PO Q12H Qty: 10 0RF tramadol 50 mg tablet 50 mg PO Q6H PRN (Reason: pain) Qty: 20 0RF Referrals: Michelle Garcia PA [Primary Care Provider] - Patient Instructions: Opioid Safety, Pain Management Coding Level of Care Code ED Manager Ct for Mary Caal
[2024-02-21 12:57] LABS: Basophils # 0.1 10^3/uL (0.0-0.1); Basophils % 0.5 %; Eosinophils # 0.4 10^3/uL (0.0-0.8); Eosinophils % 1.9 %; Lymphocytes # 1.7 10^3/uL (0.8-4.8); Lymphocytes % 9.1 %; Mean Corpuscular HGB Conc 33.5 g/dL (30-55); Mean Corpuscular Hemoglobin 27.5 pg (27-33); Mean Corpuscular Volume 82.2 fl (85-98); Mean Platelet Volume 10.2 fL (7.4-10.4); Monocytes # 1.3 10^3/uL (0.2-0.9); Monocytes % 7.2 %; Neutrophils # 14.67 10^3/uL (1.8-7.7); Neutrophils % 80.9 %; Nucleated Red Blood Cells % 0 %; Platelet Count 420 10^3/cmm (157-399); Red Blood Count 5.23 10^6/uL (3.85-5.65); Red Cell Distribution Width 13.6 % (12.1-15.1); White Blood Count 18.15 10^3/uL (3.29-11.43)
[2024-02-21 13:19] LABS: Bilirubin Urine Negative (Negative); Blood Urine Negative (Negative); Glucose Urine UA Negative (Normal); Ketones Urine 1+ (Negative); Leukocyte Esterase Urine Trace (Negative); Nitrate Urine Negative (Negative); Protein Urine 1+ (Negative); Specific Gravity, Urine 1.026 (1.005-1.030); Urine Appearance Clear (CLEAR); Urine Color Dark Yellow (Yellow); pH Urine 5.5 (5-7)
[2024-02-21] MEDS: iohexol 350 mg/mL 500 mL Btl (per mL) IV (13:22)
[2024-02-21 13:24] LABS: Troponin(5th) Baseline < 6 ng/L (0-10)
[2024-02-21 13:24] LABS: Add Urine Microscopic? YES; Bacteria Urine Trace /hpf; Hyaline Casts Urine 0.81 /lpf; RBC Urine 0-2 /hpf (0-2)
[2024-02-21 13:25] LABS: Lactic Sepsis W/Reflex 1.1 mmol/L (0.5-2.2)
[2024-02-21 13:30] LABS: Albumin Level 4.7 g/dL (3.5-5.2); Chloride 102 mmol/L (98-107); Potassium 3.5 mmol/L (3.5-5.1); Sodium 141 mmol/L (136-145)
[2024-02-21 13:49] LABS: Alanine Aminotransferase 14 U/L (0-33); Alkaline Phosphatase 115 U/L (35-105); Anion Gap 20.6 (5-19); Aspartate Amino Transferase 20 U/L (0-32); Blood Urea Nitrogen 9 mg/dL (6-20); Calcium 9.1 mg/dL (8.5-10.5); Carbon Dioxide 22 mmol/L (22-29); Creatine Phosphokinase 63 U/L (26-192); Creatinine Clr Calc Pharmacy 178.9927; Glomerular Filtration Rate 119.9 mL/min (90-130); Glucose 124 mg/dL (65-115); Lipase 13 U/L (13-60); NT Pro B Type Natriuretic Pept 57 pg/mL (0-125); Osmolality Calculated 292 mOsm/kg (285-295); Total Bilirubin 1.1 mg/dL (0.15-1.2); Total Protein 7.7 g/dL (6.6-8.7)
[2024-02-21 13:54] LABS: Covid PCR NEGATIVE (Negative); Influenza A NEGATIVE (Negative); Influenza B NEGATIVE (Negative); Respiratory Syncytial Virus Ce NEGATIVE (Negative)
[2024-02-21] MEDS: levofloxacin-dextrose 5 % 750 MG/150 ML PREMIX 100 MG IV (14:39)
--- NOTE | 2024-02-21 14:43 | ECG_ITS ---
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 Measurements Intervals [place] Rate: 90 P: 71 HI: 140 QRS: 46 QRSD: 93 T: 61 QT: 338 QTc: 415 Interpretive Statements SINUS RHYTHM LEFT ATRIAL ENLARGEMENT [-0.15mV P-WAVE IN V1/V2] Compared to ECG 02/21/2024 12:20:07 Sinus tachycardia no longer present T-wave abnormality no longer present Electronically Signed On 02-23-2024 18:59:05 CDT by Demetris Ragland M.D. [id number] f
--- NOTE | 2024-02-21 14:46 | P.HP_ITS ---
Providers/Chief Complaint 2 Primary Care Provider: Michelle Garcia Chief Complaint: SOB / cough History of Present Illness Haley Oden is a 28 year old female with a past medical history of depression, history of DVT in the past, possibly secondary to oral contraceptive medications, off anticoagulation therapy, who presents to [facility] due to shortness of breath, wheezing, cough, fatigue, malaise, chills, for the last 4 days. She does tell me that her daughter sick at home, but doing better. For the last 4 days she has had fatigue, malaise, shortness of breath, wheezing, nonproductive cough, chills. No recent travel, no nausea, vomiting, no chest pain. She does report a history of smoking, but has not smoked in a few years. She does report marijuana use. Denies a history of vaping. Review of Systems 2 Const: Reports: chills, fatigue and malaise Resp: Reports: dyspnea and non-productive cough Medications/Allergies Home Medications Medication Instructions Recorded Confirmed Last Taken Type sertraline 25 mg tablet (Zoloft) 25 mg PO DAILY 01/20/21 01/20/21 1 Day Ago History ~01/19/21 ibuprofen 800 mg tablet 800 mg PO TID #45 tabs 01/21/21 Unknown Rx diclofenac sodium 75 mg 75 mg PO Q12H PRN pain #20 tabs 02/04/22 Unknown Rx tablet,delayed release ciprofloxacin HCl 500 mg tablet 500 mg PO Q12H #10 tabs 06/29/22 Unknown Rx tramadol 50 mg tablet 50 mg PO Q6H PRN pain #20 tabs 06/29/22 Unknown Rx Allergies Allergy/AdvReac Type Severity Reaction Status Date / Time Latex, Natural Rubber Allergy ALGY-Hives Verified 02/21/24 12:28 eggs Allergy Unknown Uncoded 02/21/24 12:28 PFSH Acute 2 PFSH: Medical History History of DVT (deep vein thrombosis) No pertinent past medical history Surgical History Hx of tonsillectomy Hx of cholecystectomy Family History Mother Hypertension Father Diabetes Grandmother Dementia Social History Smoking and tobacco/nicotine status: current every day tobacco/nicotine user Vitals/I&O/Wt Last Vital Signs Temp 98.3 F 02/21/24 12:21 Pulse 130 H 02/21/24 12:21 Resp 22 H 02/21/24 12:21 BP 118/84 02/21/24 12:21 Pulse Ox 94 02/21/24 12:21 O2 Del Method Room Air 02/21/24 12:21 Weight last 48 hrs Weight 108.862 kg Physical Exam 2 Const: COMMON NORMALS: no acute distress and patient oriented x3 HENMT: COMMON NORMALS: normocephalic HEAD & SCALP: normocephalic Neck/C-Spine: COMMON NORMALS: no JVD Resp: COMMON NORMALS: normal respiratory effort, No retractions and No use of accessory muscles AUSCULTATION: crackles and wheezes Cardio: COMMON NORMALS: no JVD, regular rate, regular rhythm, S1 normal heart sound present and S2 normal heart sound present RATE: tachycardic RHYTHM: regular rhythm HEART SOUNDS: S1 normal heart sound present and S2 normal heart sound present GI: COMMON NORMALS: Normal to inspection, nondistended, normoactive bowel sounds present, Soft to palpation and non-tender Extremity: COMMON NORMALS: no calf tenderness and no pedal edema Neuro: COMMON NORMALS: patient oriented x3, CN's II-XII intact bilaterally and moves all extremities Psych: COMMON NORMALS: mental status grossly normal Data 02/21/24 12:51 02/21/24 12:51 A&P Assessment and plan (1) Acute hypoxic respiratory failure: (2) Multifocal pneumonia: Plan Acute hypoxic respiratory failure secondary to multifocal pneumonia ? Plan ? Pro-Jair, CRP ? Sputum cultures ? Blood cultures ? Switch to Rocephin, azithromycin ? 1 dose IV Solu-Medrol 125 mg IV once ? IV fluids ? Xopenex ? Budesonide ? Monitor respiratory status closely ? Tachycardia, sinus, telemetry monitoring ? Full code Lovenox for DVT prophylaxis Attestations 2 Medical Necessity Statement*: Patient requires hospitalization, inpatient, greater than 2 midnights, for acute hypoxic respiratory failure secondary to multifocal pneumonia Diagnoses Acute hypoxic respiratory failure J96.01 Multifocal pneumonia J18.9
[2024-02-21 15:06] LABS: Troponin 5 2HR Delta 0.00001 ABS# (0-10)
[2024-02-21 15:12] LABS: Procalcitonin 0.05 ng/mL (0-0.5)
[2024-02-21 15:23] LABS: C Reactive Protein 77.7 mg/L (0.0-4.9)
[2024-02-21] MEDS: ketorolac 30 mg/mL INJ IVP (16:21)
[2024-02-21] MEDS: methylPREDNISolone sod succ 125 mg/2 mL INJ IVP (18:08)
[2024-02-21] MEDS: enoxaparin 40 mg/0.4 mL Syringe SUBCUT (18:08)
[2024-02-21] MEDS: sodium chloride 0.9% 1,000 ML 75 ML IV (18:08)
[2024-02-21] MEDS: pantoprazole 40 mg SDV IVP (18:08)
[2024-02-21 18:16] LABS: Chol HDL Ratio 3.33 mg/dL (0.0-4.40); Cholesterol 150 mg/dL (0-200); HDL Cholesterol 45 mg/dL (60-100); LDL Cholesterol Calculated 91 mg/dL (50-129); LDL HDL Ratio 2.02 RATIO (0.00-3.22); Thyroid Stimulating Hormone 1.24 uIU/mL (0.27-4.20); Triglycerides 70 mg/dL (0-150)
--- NOTE | 2024-02-21 18:20 | ECG_ITS ---
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 Measurements Intervals [place] Rate: 94 P: 67 [place]: 142 QRS: 43 QRSD: 98 T: 51 QT: 348 QTc: 436 Interpretive Statements SINUS RHYTHM POSSIBLE LEFT ATRIAL ENLARGEMENT [-0.1mV P-WAVE IN V1/V2] Compared to ECG 02/21/2024 14:43:18 No significant changes Electronically Signed On 02-23-2024 18:58:56 CDT by Demetris Ragland M.D. [id number]
[2024-02-21 19:16] LABS: Troponin 5 6HR Delta 0.00001 ng/L (0-12)
[2024-02-21] MEDS: levalbuterol 0.63 mg/3 mL Neb INHALATION (20:00)
[2024-02-21] MEDS: budesonide 0.5 mg/2 mL Neb INHALATION (20:00)
[2024-02-21 22:02] LABS: Estmated Average Glucose 105; Hemoglobin A1C 5.3 % (4.0-6.0)
[2024-02-22] VITALS (12 sets, daily range): BP systolic 102–125; BP diastolic 67–79; PULSE 90–122; RESP 16–19; TEMP 36.5–37; O2SAT 90–97
[2024-02-22] MEDS: levalbuterol 0.63 mg/3 mL Neb INHALATION ×3 (01:25→20:30)
[2024-02-22] MEDS: TRAMadol 50 mg Tablet PO ×3 (02:34→13:08)
[2024-02-22 04:29] LABS: Basophils % 0.1 %; Hematocrit 36.3 % (36-47); Lymphocytes # 0.6 10^3/uL (0.8-4.8); Lymphocytes % 3.4 %; Mean Corpuscular HGB Conc 33.9 g/dL (30-55); Mean Corpuscular Hemoglobin 27.9 pg (27-33); Mean Corpuscular Volume 82.3 fl (85-98); Mean Platelet Volume 10.5 fL (7.4-10.4); Monocytes # 0.5 10^3/uL (0.2-0.9); Monocytes % 2.7 %; Neutrophils # 17.38 10^3/uL (1.8-7.7); Neutrophils % 93.3 %; Nucleated Red Blood Cells % 0 %; Platelet Count 306 10^3/cmm (157-399); Red Blood Count 4.41 10^6/uL (3.85-5.65); Red Cell Distribution Width 13.7 % (12.1-15.1); White Blood Count 18.64 10^3/uL (3.29-11.43)
[2024-02-22 04:51] LABS: Anion Gap 15.6 (5-19); Blood Urea Nitrogen 8 mg/dL (6-20); Calcium 8.3 mg/dL (8.5-10.5); Carbon Dioxide 20 mmol/L (22-29); Chloride 108 mmol/L (98-107); Creatinine Clr Calc Pharmacy 215.6141; Glucose 179 mg/dL (65-115); Osmolality Calculated 293 mOsm/kg (285-295); Potassium 3.6 mmol/L (3.5-5.1); Sodium 140 mmol/L (136-145)
--- NOTE | 2024-02-22 06:00 | USR_ITS ---
PROCEDURE INFORMATION: Exam: US Duplex Lower Extremity Veins, Bilateral Exam date and time: 02/22/2024 7:00 AM Age: 28 years old Clinical indication: Screening exam; HX of dvt. No history of recent trauma or surgery is provided. TECHNIQUE: Imaging protocol: Real-time duplex ultrasound of the bilateral extremities with 2-D gallo scale, color Doppler flow and spectral waveform analysis including responses to compression and other maneuvers (when performed) with image documentation. Complete exam focused on the lower extremity veins. [id number](s) are provided. COMPARISON: No previous lower extremity venous ultrasound is currently available. FINDINGS: Right deep veins: Compressibility and/ or color Doppler flow is demonstrated throughout including the common femoral, profunda, superficial femoral, popliteal, posterior tibial, and peroneal veins. Left deep veins: Compressibility and/ or color Doppler flow is demonstrated throughout including the common femoral, profunda, superficial femoral, popliteal, posterior tibial, and peroneal veins. Superficial veins: Greater saphenous veins at the saphenofemoral junctions are patent bilaterally without thrombus. Soft tissues: No subcutaneous fluid collections are appreciated. US/CV venous duplex [facility] [id number] IMPRESSION: No evidence of deep vein thrombosis.
[2024-02-22] MEDS: azithromycin 500 MG in sodium chloride 0.9% 250 ML 250 MG IV (06:17)
[2024-02-22] MEDS: cefTRIAXone 1,000 mg SDV 1000 MG IVP (06:18)
[2024-02-22] MEDS: sodium chloride 0.9% 1,000 ML 75 ML IV (06:26)
[2024-02-22] MEDS: ondansetron 2 mg/ML SDV 2 mL 4 MG IVP ×2 (06:52→17:41)
[2024-02-22] MEDS: budesonide 0.5 mg/2 mL Neb INHALATION ×2 (07:25→20:30)
[2024-02-22] MEDS: sertraline 50 mg Tablet 100 MG PO (09:27)
--- NOTE | 2024-02-22 10:05 | PC.NURSE ---
Ememis Patient threw up a 50mg Tramadol pill. I saw it in the basin. When I tried to undo the administer the mar would not let me.
[2024-02-22] MEDS: metoclopramide 5 mg/mL SDV 2 mL IVP ×3 (10:13→20:52)
[2024-02-22] MEDS: predniSONE 20 mg Tablet 40 MG PO (11:00)
--- NOTE | 2024-02-22 15:09 | P.PN_ITS ---
Subjective 2 Subjective: Patient was seen this morning, she continues to have complaints of shortness of breath and wheezing, no fevers, does have a cough Vitals/I&O/Wt Last Vital Signs Temp 97.9 F 02/22/24 11:25 Pulse 102 H 02/22/24 13:59 Resp 18 02/22/24 07:25 BP 121/76 02/22/24 11:25 Pulse Ox 93 02/22/24 11:25 O2 Del Method Room Air 02/22/24 11:25 02/22/24 02/22/24 02/22/24 06:59 14:59 22:59 Intake Total 1162.5 / 3160.5 250 / 250 Output Total 1300 / 1300 Balance 1162.5 / 3160.5 -1050 / -1050 Weight last 48 hrs Weight 109.633 kg Weight 109.543 kg Weight 108.862 kg Physical Exam 2 Const: COMMON NORMALS: no acute distress and patient oriented x3 Resp: COMMON NORMALS: normal respiratory effort, No retractions and No use of accessory muscles AUSCULTATION: wheezes Cardio: COMMON NORMALS: regular rate, regular rhythm, S1 normal heart sound present and S2 normal heart sound present RATE: regular rate RHYTHM: r egular rhythm HEART SOUNDS: S1 normal heart sound present and S2 normal heart sound present GI: COMMON NORMALS: Normal to inspection, nondistended, normoactive bowel sounds present and non-tender Extremity: COMMON NORMALS: no pedal edema Neuro: COMMON NORMALS: patient oriented x3 Psych: COMMON NORMALS: mental status grossly normal Data 02/22/24 04:11 02/22/24 04:11 Micro: Microbiology 02/21/24 14:58 Blood Culture - Preliminary Blood NEGATIVE TO DATE 02/21/24 12:51 Blood Culture - Preliminary Blood NEGATIVE TO DATE 02/22/24 09:30 Gram Stain - Final Sputum - Expectorated Sputum A&P Assessment and plan (1) Acute hypoxic respiratory failure: (2) Multifocal pneumonia: Plan Acute hypoxic respiratory failure secondary to multifocal pneumonia ? Plan ? Sputum cultures ? Blood cultures ? Switch to Rocephin, azithromycin ? Prednisone 40 mg daily ? IV fluids ? Xopenex ? Budesonide ? Monitor respiratory status closely ? Tachycardia, sinus, telemetry monitoring ? Full code Lovenox for DVT prophylaxis Plan for today continue IV antibiotics, p.o. prednisone, de-escalate fluids Attestations 2 Medical Necessity Statement*: Patient requires hospitalization for multifocal pneumonia, inpatient, greater than 2 midnights Diagnoses Acute hypoxic respiratory failure J96.01 Multifocal pneumonia J18.9
[2024-02-22] MEDS: enoxaparin 40 mg/0.4 mL Syringe SUBCUT (17:37)
[2024-02-22] MEDS: pantoprazole 40 mg SDV IVP (17:41)
[2024-02-23] VITALS (12 sets, daily range): BP systolic 100–127; BP diastolic 63–85; PULSE 59–118; RESP 16–20; TEMP 36.6–36.9; O2SAT 87–98
[2024-02-23 04:38] LABS: Basophils # 0.1 10^3/uL (0.0-0.1); Basophils % 0.2 %; Eosinophils % 0.1 %; Hematocrit 38.2 % (36-47); Lymphocytes # 2.5 10^3/uL (0.8-4.8); Lymphocytes % 12.5 %; Mean Corpuscular HGB Conc 32.2 g/dL (30-55); Mean Corpuscular Hemoglobin 27.6 pg (27-33); Mean Corpuscular Volume 85.7 fl (85-98); Mean Platelet Volume 10.7 fL (7.4-10.4); Monocytes # 1.5 10^3/uL (0.2-0.9); Monocytes % 7.5 %; Neutrophils # 15.99 10^3/uL (1.8-7.7); Neutrophils % 79.2 %; Nucleated Red Blood Cells % 0 %; Platelet Count 359 10^3/cmm (157-399); Red Blood Count 4.46 10^6/uL (3.85-5.65); Red Cell Distribution Width 14.2 % (12.1-15.1)
[2024-02-23 04:54] LABS: Anion Gap 12.9 (5-19); Blood Urea Nitrogen 11 mg/dL (6-20); Calcium 8.8 mg/dL (8.5-10.5); Carbon Dioxide 24 mmol/L (22-29); Chloride 108 mmol/L (98-107); Creatinine Clr Calc Pharmacy 214.1136; Glucose 113 mg/dL (65-115); Osmolality Calculated 292 mOsm/kg (285-295); Potassium 3.9 mmol/L (3.5-5.1); Sodium 141 mmol/L (136-145)
[2024-02-23] MEDS: azithromycin 500 MG in sodium chloride 0.9% 250 ML 250 MG IV (05:55)
[2024-02-23] MEDS: cefTRIAXone 1,000 mg SDV 1000 MG IVP (05:55)
[2024-02-23] MEDS: metoclopramide 5 mg/mL SDV 2 mL IVP ×3 (06:19→23:06)
[2024-02-23] MEDS: budesonide 0.5 mg/2 mL Neb INHALATION ×2 (07:27→20:02)
[2024-02-23] MEDS: levalbuterol 0.63 mg/3 mL Neb INHALATION ×2 (07:27→13:06)
[2024-02-23] MEDS: sertraline 50 mg Tablet 100 MG PO (08:00)
[2024-02-23] MEDS: predniSONE 20 mg Tablet 40 MG PO (08:00)
--- NOTE | 2024-02-23 08:57 | XR_ITS ---
WS: [id number] Exam: XR chest 1V portable [id number] Date/Time of Exam: 02/23/2024 8:58 AM Reason For Exam: sob Comparison 02/21/2024. Findings: The lungs are clear and fully expanded. Costophrenic angles are sharp. No infiltrates. Bronchovascula r relief appears normal. Cardiac silhouette is unremarkable. Bony elements are intact. XR/XR chest 1V portable [id number] IMPRESSION: Unremarkable chest radiograph.
--- NOTE | 2024-02-23 09:02 | PC.CHAP ---
Pastoral Care Encounter/Spiritual Assessment Type of Contact [] Declined guide visitor visit [] Patient/Family/Request visit [] Outpatient visit [] Follow-up visit [] Physician referral [] Code/Alert [x] Routine visit [] Staff referral [] Actively dying [] Patient sleeping [] Family support [] [] Out of room [] Palliative care [] [] Receiving care in room [] Pre-surgical visit [] Trauma [] Long length of stay [] ICU visit [] Other: Relational/Emotional Strength [] Patient feels connected with others/family/visitors/staff [] Distress [] Loneliness/isolation [] Abandonment Spirituality of Patient [] Person of Verónica [] Attends [employer] of their [place] [] Believes in Prayer [] Reads Bible or Faith materials [] There are Spiritual issues to be addressed Cellular Biologist Interventions [] Prayer [] Active listening [] Non-anxious presence [] Spiritual/emotional support [] Crisis/trauma care [] Spiritual counseling [] Bereavement support [] Provided bereavement packet [] Provided Bible/devotional materials [] Provided toy/stuffed animal, coloring book to patient or family member [] Provided Communion [] Anointing/[place] [] Salvation [x] Completed spiritual assessment [] Other: Impact on Illness or Injury [] Angry [] Fearful [] Anxious [] Often cries [] Exhaustion [] Unable to work [] Unable to attend jehovah's witness [] Unable to walk/stand [] Unable to read [] Unable to drive [] Unable to eat/drink [] Unable to sleep [] Unable to be with family [] Patient intubated [] Other: Summary did not want prayer Time spent with patient 5 min
[2024-02-23 09:32] LABS: NT Pro B Type Natriuretic Pept 930 pg/mL (0-125); Procalcitonin 0.06 ng/mL (0-0.5)
[2024-02-23 09:43] LABS: C Reactive Protein 92.7 mg/L (0.0-4.9)
[2024-02-23] MEDS: TRAMadol 50 mg Tablet PO ×2 (10:39→19:54)
[2024-02-23 12:56] LABS: Adenovirus Not Detected (NOT DETECT); Chlamydia Pneumoniae Not Detected (NOT DETECT); Coronavirus 229E,HKU1,NL63,OC4 Not Detected (NOT DETECT); Human Metapneumovirus Not Detected (NOT DETECT); Human Rhinovirus/Enterovirus Not Detected (NOT DETECT); Influenza A Not Detected (NOT DETECT); Influenza A H1 Not Detected (NOT DETECT); Influenza A H1-2009 Not Detected (NOT DETECT); Influenza A H3 Not Detected (NOT DETECT); Influenza B Not Detected (NOT DETECT); Mycoplasma Pneumoniae Not Detected (NOT DETECT); Parainfluenza Virus Type 1 Not Detected (NOT DETECT); Parainfluenza Virus Type 2 Not Detected (NOT DETECT); Parainfluenza Virus Type 3 Not Detected (NOT DETECT); Parainfluenza Virus Type 4 Not Detected (NOT DETECT); Respiratory Syncytial Virus A Not Detected (NOT DETECT); Respiratory Syncytial Virus B Not Detected (NOT DETECT); SARS-COV-2 Not Detected (NOT DETECT)
--- NOTE | 2024-02-23 15:26 | P.PN_ITS ---
Subjective 2 Subjective: Patient was seen this morning, currently on 2 L, she does report shortness of breath that persist today, feeling unwell with fatigue, malaise no fever overnight, does have a nonproductive cough, Vitals/I&O/Wt Last Vital Signs Temp 98.2 F 02/23/24 12:00 Pulse 118 H 02/23/24 13:06 Resp 20 H 02/23/24 13:06 BP 116/71 02/23/24 12:00 Pulse Ox 97 02/23/24 13:06 O2 Del Method Nasal Cannula 02/23/24 13:06 O2 Flow Rate 2 02/23/24 13:06 02/23/24 02/23/24 02/23/24 06:59 14:59 22:59 Intake Total 240 / 1110 490 / 490 Balance 240 / -1090 490 / 490 Weight last 48 hrs Weight 108.227 kg Weight 109.633 kg Weight 109.543 kg Physical Exam 2 Const: COMMON NORMALS: no acute distress and patient oriented x3 Neck/C-Spine: COMMON NORMALS: no JVD Resp: COMMON NORMALS: normal respiratory effort, No retractions and No use of accessory muscles AUSCULTATION: crackles and wheezes Cardio: COMMON NORMALS: no JVD, regular rate, regular rhythm, S1 normal heart sound present and S2 normal heart sound present RATE: regular rate RHYTHM: regular rhythm HEART SOUNDS: S1 normal heart sound present and S2 normal heart sound present GI: COMMON NORMALS: Normal to inspection, nondistended, normoactive bowel sounds present and non-tender Extremity: COMMON NORMALS: no calf tenderness and no pedal edema Neuro: COMMON NORMALS: patient oriented x3 Psych: COMMON NORMALS: mental status grossly normal Data 02/23/24 04:11 02/23/24 04:11 Micro: Microbiology 02/22/24 09:30 Gram Stain - Final Sputum - Expectorated Sputum Sputum Culture - Preliminary 02/21/24 14:58 Blood Culture - Preliminary Blood NEGATIVE TO DATE 02/21/24 12:51 Blood Culture - Preliminary Blood NEGATIVE TO DATE A&P Assessment and plan (1) Acute hypoxic respiratory failure: (2) Multifocal pneumonia: Plan Acute hypoxic respiratory failure secondary to multifocal pneumonia, currently requiring 2 L ? Plan ? Sputum cultures ? Blood cultures ? Continue Rocephin, azithromycin ? Due to persistent wheezing increase probably soluMedrol to 40 mg IV every 8 hours ? 1 dose IV Lasix ? Xopenex ? Budesonide ? Monitor respiratory status closely ? Tachycardia, sinus, telemetry monitoring ? Full code Lovenox for DVT prophylaxis Plan for today repeat CRP, Pro-Jair, BNP 1 dose IV Lasix, increased dose of steroids, continue IV antibiotics, repeat respiratory viral panel, repeat chest x-ray Attestations 2 Medical Necessity Statement*: Patient requires hospitalization for acute hypoxic respiratory failure secondary to multifocal pneumonia with acute hypoxia requiring 2 L requiring hospital admission Diagnoses Acute hypoxic respiratory failure J96.01 Multifocal pneumonia J18.9
[2024-02-23] MEDS: FUROsemide 10 mg/mL SDV 2mL 20 MG IVP (16:09)
[2024-02-23] MEDS: pantoprazole 40 mg SDV IVP (16:14)
[2024-02-23] MEDS: enoxaparin 40 mg/0.4 mL Syringe SUBCUT (16:15)
[2024-02-23] MEDS: methylPREDNISolone sod succ 40 mg/mL INJ IVP (19:55)
[2024-02-24] VITALS (13 sets, daily range): BP systolic 102–177; BP diastolic 62–77; PULSE 67–106; RESP 16–20; TEMP 36.6–36.8; O2SAT 90–97
[2024-02-24] MEDS: acetaminophen 325 mg Tablet 650 MG PO ×2 (00:06→09:47)
[2024-02-24] MEDS: levalbuterol 0.63 mg/3 mL Neb INHALATION ×3 (00:21→20:23)
[2024-02-24 05:09] LABS: Basophils % 0.1 %; Hematocrit 37.5 % (36-47); Lymphocytes # 1.5 10^3/uL (0.8-4.8); Lymphocytes % 7.3 %; Mean Corpuscular HGB Conc 33.1 g/dL (30-55); Mean Corpuscular Hemoglobin 27.6 pg (27-33); Mean Corpuscular Volume 83.3 fl (85-98); Mean Platelet Volume 10.7 fL (7.4-10.4); Monocytes # 0.9 10^3/uL (0.2-0.9); Monocytes % 4.5 %; Neutrophils # 18.18 10^3/uL (1.8-7.7); Neutrophils % 87.4 %; Nucleated Red Blood Cells % 0 %; Platelet Count 415 10^3/cmm (157-399); Red Cell Distribution Width 14.1 % (12.1-15.1); White Blood Count 20.81 10^3/uL (3.29-11.43)
[2024-02-24 05:37] LABS: Anion Gap 17.3 (5-19); Blood Urea Nitrogen 14 mg/dL (6-20); Carbon Dioxide 27 mmol/L (22-29); Chloride 101 mmol/L (98-107); Creatinine Clr Calc Pharmacy 208.8853; Glucose 135 mg/dL (65-115); Osmolality Calculated 295 mOsm/kg (285-295); Potassium 4.3 mmol/L (3.5-5.1); Sodium 141 mmol/L (136-145)
[2024-02-24] MEDS: cefTRIAXone 1,000 mg SDV 1000 MG IVP (05:41)
[2024-02-24] MEDS: metoclopramide 5 mg/mL SDV 2 mL IVP ×2 (05:42→17:30)
[2024-02-24] MEDS: azithromycin 500 MG in sodium chloride 0.9% 250 ML 250 MG IV (06:13)
[2024-02-24] MEDS: TRAMadol 50 mg Tablet PO ×2 (07:26→20:20)
[2024-02-24] MEDS: budesonide 0.5 mg/2 mL Neb INHALATION ×2 (07:52→20:22)
[2024-02-24] MEDS: sertraline 50 mg Tablet 100 MG PO (08:06)
[2024-02-24 09:06] LABS: NT Pro B Type Natriuretic Pept 408 pg/mL (0-125)
[2024-02-24] MEDS: methylPREDNISolone sod succ 40 mg/mL INJ IVP ×2 (11:21→20:20)
--- NOTE | 2024-02-24 12:05 | P.PN_ITS ---
Subjective 2 Subjective: Patient was seen this morning, she feels better compared to yesterday continues to have wheezing, intermittent shortness of breath, continues to have a cough Vitals/I&O/Wt Last Vital Signs Temp 98.0 F 02/24/24 11:36 Pulse 101 H 02/24/24 11:36 Resp 18 02/24/24 11:36 BP 122/75 02/24/24 11:36 Pulse Ox 92 02/24/24 11:36 O2 Del Method Room Air 02/24/24 11:36 O2 Flow Rate 1 02/24/24 07:52 02/23/24 02/24/24 02/24/24 22:59 06:59 14:59 Intake Total 2390 / 2880 490 / 490 Output Total 300 / 300 Balance 2390 / 2880 190 / 190 Weight last 48 hrs Weight 103.328 kg Weight 108.227 kg Physical Exam 2 Const: COMMON NORMALS: no acute distress and patient oriented x3 Resp: COMMON NORMALS: normal respiratory effort, No retractions and No use of accessory muscles AUSCULTATION: wheezes Cardio: COMMON NORMALS: regular rate, regular rhythm, S1 normal heart sound present and S2 normal heart sound present RATE: regular rate RHYTHM: r egular rhythm HEART SOUNDS: S1 normal heart sound present and S2 normal heart sound present GI: COMMON NORMALS: Normal to inspection, nondistended, normoactive bowel sounds present and non-tender Extremity: COMMON NORMALS: no pedal edema Neuro: COMMON NORMALS: patient oriented x3 Psych: COMMON NORMALS: mental status grossly normal Data 02/24/24 04:29 02/24/24 04:29 Micro: Microbiology 02/22/24 09:30 Gram Stain - Final Sputum - Expectorated Sputum Sputum Culture - Preliminary A&P Assessment and plan (1) Acute hypoxic respiratory failure: (2) Multifocal pneumonia: Plan Acute hypoxic respiratory failure secondary to multifocal pneumonia, currently requiring RA ? Plan ? Sputum cultures ? Blood cultures ? Continue Rocephin, azithromycin ? Due to persistent wheezing increase probably soluMedrol to 40 mg IV every 8 hours ? BNP 408 ? Xopenex ? Budesonide ? Monitor respiratory status closely ? Tachycardia, sinus, telemetry monitoring ? Full code Lovenox for DVT prophylaxis Plan for today continue steroids, antibiotics Attestations 2 Medical Necessity Statement*: Patient requires hospitalization for respiratory failure, multifocal pneumonia Diagnoses Acute hypoxic respiratory failure J96.01 Multifocal pneumonia J18.9
[2024-02-24] MEDS: pantoprazole 40 mg SDV IVP (17:31)
[2024-02-24] MEDS: enoxaparin 40 mg/0.4 mL Syringe SUBCUT (17:31)
[2024-02-25] VITALS (7 sets, daily range): BP systolic 117–132; BP diastolic 71–85; PULSE 65–100; RESP 16–17; TEMP 36.5–37.1; O2SAT 91–98
[2024-02-25] MEDS: methylPREDNISolone sod succ 40 mg/mL INJ IVP ×2 (04:47→11:32)
[2024-02-25] MEDS: metoclopramide 5 mg/mL SDV 2 mL IVP (04:51)
[2024-02-25] MEDS: cefTRIAXone 1,000 mg SDV 1000 MG IVP (05:00)
[2024-02-25 05:48] LABS: Basophils % 0.2 %; Lymphocytes # 2.1 10^3/uL (0.8-4.8); Lymphocytes % 12.3 %; Mean Corpuscular HGB Conc 33.3 g/dL (30-55); Mean Corpuscular Hemoglobin 27.4 pg (27-33); Mean Corpuscular Volume 82.3 fl (85-98); Mean Platelet Volume 10.7 fL (7.4-10.4); Monocytes # 0.9 10^3/uL (0.2-0.9); Monocytes % 5.4 %; Neutrophils # 13.94 10^3/uL (1.8-7.7); Neutrophils % 80.7 %; Nucleated Red Blood Cells % 0 %; Platelet Count 461 10^3/cmm (157-399); Red Blood Count 4.86 10^6/uL (3.85-5.65); White Blood Count 17.28 10^3/uL (3.29-11.43)
[2024-02-25] MEDS: azithromycin 500 MG in sodium chloride 0.9% 250 ML 250 MG IV (06:06)
[2024-02-25 06:11] LABS: Anion Gap 14.9 (5-19); Blood Urea Nitrogen 16 mg/dL (6-20); Calcium 9.1 mg/dL (8.5-10.5); Carbon Dioxide 27 mmol/L (22-29); Chloride 103 mmol/L (98-107); Creatinine Clr Calc Pharmacy 196.4151; Glomerular Filtration Rate 119.9 mL/min (90-130); Glucose 157 mg/dL (65-115); Osmolality Calculated 296 mOsm/kg (285-295); Potassium 3.9 mmol/L (3.5-5.1); Sodium 141 mmol/L (136-145)
[2024-02-25] MEDS: TRAMadol 50 mg Tablet PO (07:18)
[2024-02-25] MEDS: sertraline 50 mg Tablet 100 MG PO (07:59)
[2024-02-25] MEDS: budesonide 0.5 mg/2 mL Neb INHALATION (09:47)
[2024-02-25] MEDS: levalbuterol 0.63 mg/3 mL Neb INHALATION (09:47)
--- NOTE | 2024-02-25 11:00 | PM.DCS ---
Discharge Providers Date of Admission: 02/21/24 14:04 Date of Discharge: February 25, 2024 Attending Provider at Admission: Juvenal Miranda MD Attending Provider at Discharge: Juvenal Miranda MD Primary Care Provider: Michelle Garcia Diagnoses at Discharge Discharge Diagnosis (1) Acute hypoxic respiratory failure: Status: Acute (2) Multifocal pneumonia: Status: Acute Reason for Visit Reason for Visit: SOB / cough Hospital Course Hospital Course Haley Oden is a 28 year old female with a past medical history of depression, history of DVT in the past, possibly secondary to oral contraceptive medications, off anticoagulation therapy, who presents to [facility] due to shortness of breath, wheezing, cough, fatigue, malaise, chills, for the last 4 days. She does tell me that her daughter sick at home, but doing better. For the last 4 days she has had fatigue, malaise, shortness of breath, wheezing, nonproductive cough, chills. No recent travel, no nausea, vomiting, no chest pain. She does report a history of smoking, but has not smoked in a few years. She does report marijuana use. Denies a history of vaping. This is a 28-year-old female who presents to [facility] for shortness of breath, likely secondary to multifocal pneumonia, received IV antibiotics, steroid therapy, did require intermittent oxygen therapy up to 2 L, overall clinically improved, discharged on room air, remains afebrile, will be discharged on Augmentin, albuterol, Advair, prednisone burst, with a close follow-up with primary care provider as outpatient. I suspect patient has some component of asthma, advised her to follow-up with primary care provider as outpatient, consider referral to pulmonary for outpatient testing for asthma. If patient were to have any recurrent shortness of breath or wheezing to immediately come back to the emergency room Physical Exam Const: COMMON NORMALS: no acute distress and patient oriented x3 Resp: COMMON NORMALS: normal respiratory effort, No retractions, No use of accessory muscles and clear to auscultation bilaterally AUSCULTATION: clear to auscultation bilaterally Cardio: COMMON NORMALS: regular rate, regular rhythm, S1 normal heart sound present and S2 normal heart sound present RATE: regular rate RHYTHM: regular rhythm HEART SOUNDS: S1 normal heart sound present and S2 normal heart sound present GI: COMMON NORMALS: Normal to inspection, nondistended, normoactive bowel sounds present and non-tender Extremity: COMMON NORMALS: no pedal edema Neuro: COMMON NORMALS: patient oriented x3 Psych: COMMON NORMALS: mental status grossly normal Discharge Data Studies Completed and Pending Completed Studies During Hospitalization Category Date Time Status CT angio chest PE protcl [id number] Stat Cat Scan 02/21/24 12:43 Completed XR chest 1V portable [id number] Routine Exams 02/23/24 08:57 Completed XR chest 1V portable [id number] Stat Exams 02/21/24 12:34 [place] [id number] Stat Ultrasound 02/22/24 06:00 Completed Pending at discharge Category Date Time Status Blood Culture Stat Lab 02/21/24 14:58 Results Sputum Culture and Gram Stain Stat Lab 02/22/24 09:30 Results Radiology Impressions Chest CTA 02/21/24 12:43 IMPRESSION: 1. Multilobar patchy ground-glass opacities, suggestive of multilobar pneumonia. 2. Enlarged bilateral hilar and subcarinal lymph nodes, likely reactive. Venous Duplex 02/22/24 06:00 IMPRESSION: No evidence of deep vein thrombosis. Chest X-Ray 02/23/24 08:57 IMPRESSION: Unremarkable chest radiograph. Laboratory Results WBC 17.28 10^3/uL (3.29-11.43) H 02/25/24 04:54 RBC 4.86 10^6/uL (3.85-5.65) 02/25/24 04:54 Hgb 13.30 g/dL (11.27-16.99) 02/25/24 04:54 Hct 40.0 % (36-47) 02/25/24 04:54 MCV 82.3 fl (85-98) L 02/25/24 04:54 MCH 27.4 pg (27-33) 02/25/24 04:54 MCHC 33.3 g/dL (30-55) 02/25/24 04:54 RDW 14.0 % (12.1-15.1) 02/25/24 04:54 Plt Count 461 10^3/cmm (157-399) H 02/25/24 04:54 MPV 10.7 fL (7.4-10.4) H 02/25/24 04:54 Neut % (Auto) 80.7 % 02/25/24 04:54 Lymph % (Auto) 12.3 % 02/25/24 04:54 [place] % (Auto) 5.4 % 02/25/24 04:54 Eos % (Auto) 0.0 % 02/25/24 04:54 Baso % (Auto) 0.2 % 02/25/24 04:54 Neut # (Auto) 13.94 10^3/uL (1.8-7.7) H 02/25/24 04:54 Lymph # (Auto) 2.1 10^3/uL (0.8-4.8) 02/25/24 04:54 [place] # (Auto) 0.9 10^3/uL (0.2-0.9) 02/25/24 04:54 Eos # (Auto) 0.0 10^3/uL (0.0-0.8) 02/25/24 04:54 Baso # (Auto) 0.0 10^3/uL (0.0-0.1) 02/25/24 04:54 Nucleated RBC % (auto) 0 % 02/25/24 04:54 Nucleated RBCs # 0.0 /100WBC 02/25/24 04:54 Sodium 141 mmol/L (136-145) 02/25/24 04:54 Potassium 3.9 mmol/L (3.5-5.1) 02/25/24 04:54 Chloride 103 mmol/L (98-107) 02/25/24 04:54 Carbon Dioxide 27 mmol/L (22-29) 02/25/24 04:54 Anion Gap 14.9 (5-19) 02/25/24 04:54 BUN 16 mg/dL (6-20) 02/25/24 04:54 Creatinine 0.6 mg/dL (0.5-0.9) 02/25/24 04:54 GFR Calculation 119.9 mL/min (90-130) 02/25/24 04:54 Glucose 157 mg/dL (65-115) H 02/25/24 04:54 Estimat Average Glucose 105 02/21/24 12:51 Hemoglobin A1c 5.3 % (4.0-6.0) 02/21/24 12:51 Calculated Osmolality 296 mOsm/kg (285-295) H 02/25/24 04:54 Lactic Acid 1.1 mmol/L (0.5-2.2) 02/21/24 12:51 Calcium 9.1 mg/dL (8.5-10.5) 02/25/24 04:54 Total Bilirubin 1.1 mg/dL (0.15-1.2) 02/21/24 12:51 AST 20 U/L (0-32) 02/21/24 12:51 ALT 14 U/L (0-33) 02/21/24 12:51 Alkaline Phosphatase 115 U/L (35-105) H 02/21/24 12:51 Creatine Kinase 63 U/L (26-192) 02/21/24 12:51 Troponin T Baseline < 6 ng/L (0-10) 02/21/24 12:51 Troponin T 120 Minute 6.00 ng/L (0-10) 02/21/24 14:41 Delta Troponin T 0.91373 ABS# (0-10) 02/21/24 14:41 Troponin T Hi Sens 6Hr 6.00 ng/L (0-10) 02/21/24 18:47 Troponin T Hi Sens 6Hr Delta 0.50383 ng/L (0-12) 02/21/24 18:47 C-Reactive Protein 92.7 mg/L (0.0-4.9) H 02/23/24 04:11 NT-Pro-B Natriuret Pep 408 pg/mL (0-125) H 02/24/24 04:29 Total Protein 7.7 g/dL (6.6-8.7) 02/21/24 12:51 Albumin 4.7 g/dL (3.5-5.2) 02/21/24 12:51 Globulin 3.0 g/dL (1.3-4.6) 02/21/24 12:51 Triglycerides 70 mg/dL (0-150) 02/21/24 12:51 Cholesterol 150 mg/dL (0-200) 02/21/24 12:51 LDL Cholesterol, Calc 91 mg/dL (50-129) 02/21/24 12:51 HDL Cholesterol 45 mg/dL (60-100) L 02/21/24 12:51 LDL/HDL Ratio 2.02 RATIO (0.00-3.22) 02/21/24 12:51 Cholesterol/HDL Ratio 3.33 mg/dL (0.0-4.40) 02/21/24 12:51 Lipase 13 U/L (13-60) 02/21/24 12:51 Procalcitonin 0.06 ng/mL (0-0.5) 02/23/24 04:11 TSH 1.24 uIU/mL (0.27-4.20) 02/21/24 12:51 Ser , Semi-Qnt 1.00 mIU/mL 02/21/24 12:51 Urine Color Dark yellow (Yellow) A 02/21/24 12:58 Urine Appearance Clear (CLEAR) 02/21/24 12:58 Urine pH 5.5 (5-7) 02/21/24 12:58 Ur Specific [place] 1.026 (1.005-1.030) 02/21/24 12:58 Urine Protein 1+ (Negative) A 02/21/24 12:58 Urine Glucose (UA) Negative (Normal) 02/21/24 12:58 Urine Ketones 1+ (Negative) H 02/21/24 12:58 Urine Blood Negative (Negative) 02/21/24 12:58 Urine Nitrate Negative (Negative) 02/21/24 12:58 Urine Bilirubin Negative (Negative) 02/21/24 12:58 Urine Urobilinogen 1.0 mg/dL (Negative) 02/21/24 12:58 Ur Leukocyte Esterase Trace (Negative) A 02/21/24 12:58 Urine RBC 0-2 /hpf (0-2) 02/21/24 12:58 Urine WBC 6-10 /hpf (0-5) 02/21/24 12:58 Ur Squamous Epith Cells 6-10 /hpf (0-5) 02/21/24 12:58 Amorphous Sediment Not Reportable 02/21/24 12:58 Urine Bacteria Trace /hpf (NONE) 02/21/24 12:58 Hyaline Casts 0.81 /lpf 02/21/24 12:58 Adenovirus (PCR) Not detected (NOT DETECT) 02/23/24 10:50 C. pneumoniae DNA (PCR) Not detected (NOT DETECT) 02/23/24 10:50 Coronavirus (PCR) Negative (Negative) 02/21/24 12:51 Coronavirus 229E (PCR) Not detected (NOT DETECT) 02/23/24 10:50 Human Metapneumovir PCR Not detected (NOT DETECT) 02/23/24 10:50 Influenza A (H1) PCR Not detected (NOT DETECT) 02/23/24 10:50 Influenza A (PCR) Negative (Negative) 02/21/24 12:51 Influ A (H1/09) PCR Not detected (NOT DETECT) 02/23/24 10:50 Influenza A (H3) PCR Not detected (NOT DETECT) 02/23/24 10:50 Influenza Type A (PCR) Not detected (NOT DETECT) 02/23/24 10:50 Influenza Type B (PCR) Not detected (NOT DETECT) 02/23/24 10:50 M. pneumoniae (PCR) Not detected (NOT DETECT) 02/23/24 10:50 Parainfluenza 1 (PCR) Not detected (NOT DETECT) 02/23/24 10:50 Parainfluenza 2 (PCR) Not detected (NOT DETECT) 02/23/24 10:50 Parainfluenza 3 (PCR) Not detected (NOT DETECT) 02/23/24 10:50 Parainfluenza 4 (PCR) Not detected (NOT DETECT) 02/23/24 10:50 RSV (PCR) Negative (Negative) 02/21/24 12:51 RSV Type A (PCR) Not detected (NOT DETECT) 02/23/24 10:50 RSV Type B (PCR) Not detected (NOT DETECT) 02/23/24 10:50 Entero/Rhino (PCR) Not detected (NOT DETECT) 02/23/24 10:50 SARS-CoV-2 (PCR) Not detected (NOT DETECT) 02/23/24 10:50 Vitals Last Vital Signs Temp 97.8 F 02/25/24 07:30 Pulse 65 02/25/24 09:30 Resp 16 02/25/24 09:30 BP 132/85 02/25/24 07:30 Pulse Ox 98 02/25/24 09:30 O2 Del Method Room Air 02/25/24 09:30 O2 Flow Rate 1 02/24/24 07:52 Discharge Plan Discharge Patient Disposition: Home Condition: Stable Prescriptions: New prednisone 20 mg tablet 20 mg PO BID 5 Days Qty: 10 0RF albuterol sulfate 90 mcg/actuation HFA aerosol inhaler 1 inh inhalation Q6H PRN (Reason: shortness of breath or wheezing) Qty: 8.5 0RF fluticasone propion-salmeterol [Advair Diskus] 100-50 mcg/dose blister with device 1 inh inhalation BID Qty: 60 0RF amoxicillin-pot clavulanate 875-125 mg tablet 1 tab PO BID 7 Days Qty: 14 0RF Continued sertraline [Zoloft] 25 mg Tablet 100 mg PO DAILY Discontinued ibuprofen 800 mg Tablet 800 mg PO TID Qty: 45 0RF Discharge Orders: Discharge Order (Routine); Ordered 02/25/24 Ordered By: Juvenal Miranda Referrals: Michelle Garcia PA [Primary Care Provider] - 03/02/24 1:40 pm Discharge Diet: Cardiac Discharge Activity: Resume usual activity Patient Instructions: Opioid Safety, Pain Management Activity Restrictions/Additional Instructions: - Please follow-up with your primary care provider 1 week -Please take antibiotics as prescribed Discharge Attestations Time Spent in Discharge Care*: greater than 30 min Quality Metrics Clinical Quality Measures [ No reported AMI, CVA or VTE this stay] Coding Level of Care Code 35527 Total time (in minutes) for Discharge: 45 Diagnoses Acute hypoxic respiratory failure J96.01 Multifocal pneumonia J18.9
--- NOTE | 2024-02-25 11:51 | PC.NURSE ---
Discharge Note Patient discharged to home via private vehicle accompanied by . 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 Mobile pharmacy medications and/or prescriptions provided. Belongings/home medications returned.
== END 2024-02-25 11:53 | disposition home or self-care (01) | DRG 193 ==
LOC: ER 15:54 → MEDSURG 16:54
PROVIDERS: Admitting Provider Family Medicine; Emergency Provider Family Medicine; PCP Physician Assistant; Visit Provider Family Medicine
DX: J18.9 Pneumonia, unspecified organism (principal); J96.01 Acute respiratory failure with hypoxia; F17.200 Nicotine dependence, unspecified, uncomplicated; J45.909 Unspecified asthma, uncomplicated; F32.A Depression, unspecified; Z86.718 Personal history of other venous thrombosis and embolism
CPT/HCPCS: 0241U; 36415; 71045; 71275; 80048; 80053; 80061; 81001; 82550; 83036; 83605; 83690; 83880; 84145; 84443; 84484; 84702; 85025; 86140; 87040; 87070; 87205; 87486; 87581; 87633; 93005; 93970; 94640; 94664; 96365; 96372; 99285; J0456; J0696; J1650; J1885; J1940; J1956; J2405; J2470; J2765; J2919; J7030; J7050; J7512; J7614; J7626

== ENCOUNTER 2024-07-07 17:43 | Emergency (ER) | payer OTHER, SELFPAY ==
[2024-07-07 17:56] VITALS: BP 113/77; PULSE 106; RESP 17; TEMP 36.9; O2SAT 97; BMI 35.6
--- NOTE | 2024-07-07 18:16 | XRR_ITS ---
PROCEDURE INFORMATION: Exam: XR Left Foot Exam date and time: 07/07/2024 6:24 PM Age: 28 years old Clinical indication: Injury or trauma; Fall; Sprain or strain; Foot; Left; Additional info: Fall pain TECHNIQUE: Imaging protocol: Radiologic exam of the left foot. Views: 3 or more views. COMPARISON: CR XR foot LT min 3V* [id number] 07/28/2023 8:31 PM FINDINGS: Bones/joints: Normal. Soft tissues: Normal. XR/XR foot LT min 3V* [id number] IMPRESSION: No acute findings.
--- NOTE | 2024-07-07 19:10 | ED_ITS ---
HPI - Extremity Problem General: Chief complaint: Extremity Injury, Lower Stated complaint: pain in left foot Time Seen by Provider: 07/07/24 18:26 Source: patient Mode of arrival: ambulatory Limitations: no limitations History of Present Illness: Patient is a 28-year-old female presenting to the emergency department complaining of left foot pain beginning yesterday morning. She states that she was playing too rough with her daughter when she got her left foot caught on the ground and it folded backwards. States she has been ambulatory but has been having increasing pain. She has been alternating ibuprofen and Tylenol with minimal relief. Has never previously fractured or injured that left foot before. She is noting some swelling associated with the pain as well as some bruising to the dorsum of the left foot. No other symptoms reported at this time. MD Complaint: extremity pain and extremity swelling Onset (ago): day(s) Pain Consistency: constant Location: left and other (Foot) Relieving factors: rest Exacerbating factors: range of motion and weight bearing Associated symptoms: Deny chest pain, fever(s) or rash Related Data Home Medications ?Medication ?Instructions ?Recorded ?Confirmed sertraline 25 mg tablet (Zoloft) 100 mg PO DAILY 01/2002/21/24 Previous Rx's ?Medication ?Instructions ?Recorded albuterol sulfate 90 mcg/actuation 1 inh inhalation Q6 H PRN shortness 02/25/24 aerosol inhaler of breath or wheezing #8.5 g maddie fluticasone 100 mcg-salmeterol 50 1 inh inhalation BID #60 ea 02/25/24 mcg/dose blistr powdr for inhalation (Advair Diskus) Allergies Allergy/AdvReac Type Severity Reaction Status Date / Time Latex, Natural Rubber Allergy ALGY-Hives Verified 07/07/24 17:59 eggs Allergy Unknown Uncoded 02/21/24 12:28 Review of Systems General: Reports: 10 or more systems reviewed and unremarkable except in HPI and below Const: Denies: fever(s) or chills Card: Denies: chest pain Resp: Denies: dyspnea or productive cough GI: Denies: abdominal pain, nausea, vomiting or diarrhea : Denies: flank pain Musc: Reports: extremity pain (Left foot), extremity swelling (Left foot) and other (Bruising left foot); Denies: neck pain, back pain, joint pain, joint swelling, joint redness, joint warmth, limited range of motion or muscle weakness Skin/Breast: Denies: rash Neuro: Denies: headache(s), numbness in extremities or weakness in extremities PFSH ED PFSH: Medical History History of DVT (deep vein thrombosis) No pertinent past medical history Surgical History Hx of tonsillectomy Hx of cholecystectomy Family History Mother Hypertension Father Diabetes Grandmother Dementia Social History Smoking and tobacco/nicotine status: current every day tobacco/nicotine user Physical Exam Const: COMMON NORMALS: no acute distress, patient oriented x3, no limitations, healthy appearing, alert and well nourished HENMT: COMMON NORMALS: normocephalic and atraumatic HEAD & SCALP: normocephalic and atraumatic Neck/C-Spine: COMMON NORMALS: full ROM, supple and no meningeal signs Resp: COMMON NORMALS: normal respiratory effort and No use of accessory muscles Extremity: COMMON NORMALS: full ROM, capillary refill normal, no joint enlargement and no pedal edema NARRATIVE EXTREMITY EXAM: Mild edema noted to distal dorsum of left foot, there is mild ecchymosis at the base of the first and second MTP. Tender to palpation to the dorsum of left foot. Pulses palpable. Neuro: COMMON NORMALS: patient oriented x3, moves all extremities, no focal motor deficits and no sensory deficits noted SENSORIUM/ORIENTATION: Yes alert MENINGEAL SIGNS: Yes no meningeal signs Skin: COMMON NORMALS: no rashes or lesions noted GENERAL SKIN EXAM: no rashes or lesions noted Course Vital Signs: Vital signs: Vital Signs Temperature 98.5 F 07/07/24 17:56 Pulse Rate 106 H 07/07/24 17:56 Respiratory Rate 17 07/07/24 17:56 Blood Pressure 113/77 07/07/24 17:56 Pulse Oximetry 97 07/07/24 17:56 Oxygen Delivery Me thod Room Air 07/07/24 17:56 MDM - Extremity (Nontraumatic) Medical Decision Making Patient injured left foot yesterday, swelling and some bruising noted at the dorsum of the left foot. She has remained ambulatory. X-ray negative for any fracture. Likely foot sprain will treat conservatively and wrapping compression device prior to discharge. Encouraged her to follow-up with primary care and return with any new or worsening. She verbalized understanding. Lab Data Radiology Impressions Foot X-Ray 07/07/24 18:16 IMPRESSION: No acute findings. All radiology interpretation(s) finalized by discharge Discharge Plan Discharge Patient Disposition: Home Clinical Impression: Sprain of foot, left Condition: Stable Prescriptions: No Action sertraline [Zoloft] 25 mg Tablet 100 mg PO DAILY albuterol sulfate 90 mcg/actuation HFA aerosol inhaler 1 inh inhalation Q6H PRN (Reason: shortness of breath or wheezing) Qty: 8.5 0RF fluticasone propion-salmeterol [Advair Diskus] 100-50 mcg/dose blister with device 1 inh inhalation BID Qty: 60 0RF Discharge Orders: Discharge ED (Routine); Ordered 07/07/24 Ordered By: Edgar Chung Referrals: Michelle Garcia PA [Primary Care Provider] - Patient Instructions: Foot Sprain (ED) Activity Restrictions/Additional Instructions: Rest, ice, compression, and elevation. Ibuprofen and Tylenol for pain. Gentle range of motion exercises and weightbearing as tolerated. Follow-up with primary care as needed and return with any new or worsening Print Language: Jamaican Coding Level of Care Code ED Customer Experience Specialist for Mary [facility]al
== END 2024-07-07 20:09 | disposition home or self-care (01) ==
PROVIDERS: Emergency Provider Physician Assistant; PCP Physician Assistant
DX: S93.602A Unspecified sprain of left foot, initial encounter (principal); Z72.0 Tobacco use; X58.XXXA Exposure to other specified factors, initial encounter
CPT/HCPCS: 73630; 99283

== ENCOUNTER 2024-12-19 01:35 | Emergency (ER) | payer BC, SELFPAY ==
--- OUTSIDE RECORDS SUMMARY | 2024-12-19 01:45 | XMS_ITS | Data Portability ---
Author Organization DANAE Eb [facility], [facility], [facility] Address [address] [place] [address] [address] Care Team Providers Care Creative Designer Name Role Phone SABRINA ROSALES Primary Care Provider Unavaila ble Assessment No assessment recorded. Plan of Treatment Reminders Order Date Submit Date Provider Last Modified By Organization Details Last Modified Time Details Appointments None recorded. Lab unlisted lab - sureswab(R ) advanced vaginitis plus, tma 2024 025 [place] [facility], [address] [place] [address], [facility] [address] [place], [address], 5 13:33:13 urinalysis , dipstick [address] ([facility]), [address] [facility], [place], [address], 4 09:45:59 infectious disease panel 2023 024 [facility], [address], [place], [address], 4 09:48:55 Referral physical therapist referral [address] [facility], [address] [place] [address], [address], [place], [address], 4 14:43:38 physical therapist referral 2023 024 [email or web address] 8 [facility], [address], [address], [place], [address], 16:49:47 Procedures None recorded. Surgeries None recorded. Imaging event monitor 2023 [email or web address] 2 [facility] (Scheduling Orders), [address], [place], [address], 17:38:25 US, echocardio gram 2023 asurface [facility], [address], [place], [address], 10:19:10 Medication Orders Xopenex HFA 45 mcg/actuat ion aerosol inhaler 2023 025 [facility], [address], [address], 5 18:01:00 sertraline 100 mg tablet 2023 024 [facility] 15, [address], [place], [address], 4 16:59:18 ciprofloxa cody 500 mg tablet 2023 024 [facility] 15, [address], [place], [address], 4 14:41:03 prednisone 20 mg tablet 2022 [address] [place] [address] Pharmacy 15, [address], [place], [address], 14:49:57 doxycyclin e hyclate 100 mg tablet 2022 024 [facility] 15, [address], [place], [address], 4 08:16:28 albuterol sulfate HFA 90 mcg/actuat ion aerosol inhaler 2022 024 [email or web address] 1 [facility] 15, [address], [place], [address], 14:50:29 Patient TargetsNo targets recorded. Patient InstructionsNo instructions recorded. Reason for Referral Physical Therapist Referral for Pain of right hip joint Referring Physician: [facility], Encounter Date: 01/13/2024 Physical Therapist Referral for Low back pain Referring Physician: Michelle Garcia [facility], Encounter Date: 01/13/2024 Results Created Date Observation Date Name Description Value Unit Range Abnormal Flag Note LastModifiedBy Organization Detail LastModifiedTime 12/22/19 24 12/24/2023 UR INARY TRACT INFEC TION acinetobacte r baumannii 0.000 ppm 19.961 - 24.689 normal Not Detec raymond Not Available [facility] [address], [place], [address], 12/24/2023 09:48:55 12/22/19 24 12/24/2023 UR INARY TRACT INFEC TION citrobacter freundii 0.000 ppm 23.000 - 31.881 normal Not Detec raymond Not Available [facility] [address], [place], [address], 12/24/2023 09:48:55 12/22/19 24 12/24/2023 UR INARY TRACT INFEC TION enterobacter aerogenes, cloacae 0.000 ppm 23.000 - 31.535 normal Not Detec raymond Not Available [facility] [address], [place], [address], 12/24/2023 09:48:55 12/22/19 24 12/24/2023 UR INARY TRACT INFEC TION enterococcus faecalis, faecium 0.000 ppm 26.000 - 31.575 normal Not Detec raymond Not Available [facility] [address], [place], [address], 12/24/2023 09:48:55 12/22/19 24 12/24/2023 UR INARY TRACT INFEC TION escherichia coli 28.194 ppm 23.000 - 28.500 abnormal Detec raymond Not Available [facility] [address], [place], [address], 12/24/2023 09:48:55 12/22/19 24 12/24/2023 UR INARY TRACT INFEC TION klebsiella pneumoniae, oxytoca 0.000 ppm 23.000 - 30.500 normal Not Detec raymond Not Available [facility] [address], [place], [address], 12/24/2023 09:48:55 12/22/19 24 12/24/2023 UR INARY TRACT INFEC TION morganella morganii 0.000 ppm 19.961 - 24.689 normal Not Detec raymond Not Available [facility] [address], [place], [address], 12/24/2023 09:48:55 12/22/19 24 12/24/2023 UR INARY TRACT INFEC TION proteus mirabilis, vulgaris 0.000 ppm 23.000 - 28.500 normal Not Detec raymond Not Available [facility] [address], [place], [address], 12/24/2023 09:48:55 12/22/19 24 12/24/2023 UR INARY TRACT INFEC TION pseudomonas aeruginosa 0.000 ppm 23.000 - 28.500 normal Not Detec raymond Not Available [facility] [address], [place], [address], 12/24/2023 09:48:55 12/22/19 24 12/24/2023 UR INARY TRACT INFEC TION staphylococc us aureus 0.000 ppm 26.000 - 30.902 normal Not Detec raymond Not Available [facility] [address], [place], [address], 12/24/2023 09:48:55 12/22/19 24 12/24/2023 UR INARY TRACT INFEC TION streptococcu s agalactiae (group B strep) 0.000 ppm 26.000 - 32.222 normal Not Detec raymond Not Available [facility] [address], [place], [address], 12/24/2023 09:48:55 12/22/19 24 12/24/2023 UR INARY TRACT INFEC TION vivek albicans, parapsilosis , tropicalis 0.000 ppm 19.961 - 30.770 normal Not Detec raymond Not Available [facility] [address], [place], [address], 12/24/2023 09:48:55 12/22/19 24 12/24/2023 UR INARY TRACT INFEC TION vivek glabrata 0.000 ppm 23.000 - 32.138 normal Not Detec raymond Not Available [facility] [address], [place], [address], 12/24/2023 09:48:55 12/22/19 24 12/24/2023 UR INARY TRACT INFEC TION vivek krusei 0.000 ppm 23.000 - 32.271 normal Not Detec raymond Not Available [facility] [address], [place], [address], 12/24/2023 09:48:55 12/22/19 24 12/24/2023 UR INARY TRACT INFEC TION serratia marcescens 0.000 ppm 23.000 - 31.204 normal Not Detec raymond Not Available [facility] [address], [place], [address], 12/24/2023 09:48:55 12/22/19 24 12/24/2023 UR INARY TRACT INFEC TION streptococcu s pyogenes (group A strep) 0.000 ppm 19.961 - 24.689 normal Not Detec raymond Not Available [facility] [address], [place], [address], 12/24/2023 09:48:55 12/22/19 24 12/24/2023 UR INARY TRACT INFEC TION staphylococc us saprophyticu s 0.000 ppm 19.961 - 24.689 normal Not Detec raymond Not Available [facility] [address], [place], [address], 12/24/2023 09:48:55 12/22/19 24 12/24/2023 UR INARY TRACT INFEC TION staphylococc us coagulase-ne gative spp (methicillin resistant, mrse) 29.831 ppm 19.961 - 24.689 abnormal Detec raymond Not Available [facility] [address], [place], [address], 12/24/2023 09:48:55 12/22/19 24 12/24/2023 UR INARY TRACT INFEC TION meca 29.407 ppm 23.000 - 31.199 abnormal Detec raymond Not Available [facility] [address], [place], [address], 12/24/2023 09:48:55 12/22/19 24 12/24/2023 UR INARY TRACT INFEC TION tet B, tet M 27.143 ppm 23.000 - 27.778 abnormal Detec raymond Not Available [facility] [address], [place], [address], 12/24/2023 09:48:55 12/22/19 24 12/22/2023 urina lysis , dipst ick Leukocytes Negati ve Not Available [facility] ([facility]) [address] [place], [address], 12/22/2023 08:15:26 12/22/19 24 12/22/2023 urina lysis , dipst ick Nitrite negati ve Not Available [facility] ([facility]) [address] [place], [address], 12/22/2023 08:15:26 12/22/19 24 12/22/2023 urina lysis , dipst ick Urobilinogen 4 Not Available [facility] ([facility]) [address] [place], [address], 12/22/2023 08:15:26 12/22/19 24 12/22/2023 urina lysis , dipst ick Protein Trace Not Available [facility] ([facility]) [address] [place], [address], 12/22/2023 08:15:26 12/22/19 24 12/22/2023 urina lysis , dipst ick pH 7.0 Not Available [facility] ([facility]) [address] [place], [address], 12/22/2023 08:15:26 12/22/19 24 12/22/2023 urina lysis , dipst ick Blood Negati ve Not Available [facility] ([facility]) [address] [place], [address], 12/22/2023 08:15:26 12/22/19 24 12/22/2023 urina lysis , dipst ick Specific Brady 1.025 Not Available [facility] ( [facility]) [address] [place], [address], 12/22/2023 08:15:26 12/22/19 24 12/22/2023 urina lysis , dipst ick Ketone Trace Not Available [facility] ([facility]) [address] [place], [address], 12/22/2023 08:15:26 12/22/19 24 12/22/2023 urina lysis , dipst ick Bilirubin Negati ve Not Available [facility] ([facility]) [address] [place], [address], 12/22/2023 08:15:26 12/22/19 24 12/22/2023 urina lysis , dipst ick Glucose Negati ve Not Available [facility] ([facility]) [address] [place], [address], 12/22/2023 08:15:26 12/22/19 24 12/22/2023 urina lysis , dipst ick Appearance Clear Not Available [facility] ([facility]) [address] [place], [address], 12/22/2023 08:15:26 12/22/19 24 12/22/2023 urina lysis , dipst ick Color Dark Yellow Not Available [facility] ([facility]) [address] [place], [address], 12/22/2023 08:15:26 08/21/19 25 08/21/2024 SURES WAB(R ) ADVAN ALEJO VAGIN ITIS PLUS, TMA sureswab(R) adv bacterial vaginosis (bv), tma POSITI VE negati ve abnormal Not Available [employer] [facility] [place] [address] [place], [address], 08/21/2024 13:33:12 08/21/19 25 08/21/2024 SURES WAB(R ) ADVAN ALEJO VAGIN ITIS PLUS, TMA vivek species NOT DETECT ED not detect ed normal Not Available [address], [address], 08/21/2024 13:33:12 08/21/19 25 08/21/2024 SURES WAB(R ) ADVAN ALEJO VAGIN ITIS PLUS, TMA vivek glabrata NOT DETECT ED not detect ed normal Jeana da speci es C. albic ans, C. tropi calis , C. parap belinda is, and/o r C. dubli ni is can be detec raymond, but not diffe renti ated, in the Jeana da spp. resul t. Not Available [address], [address], 08/21/2024 13:33:12 08/21/19 25 08/21/2024 SURES WAB(R ) ADVAN ALEJO VAGIN ITIS PLUS, TMA trichomonas vaginalis (TV), tma DETECT ED not detect ed abnormal Not Available [address], [address], 08/21/2024 13:33:12 08/21/19 25 08/21/2024 SURES WAB(R ) ADVAN ALEJO VAGIN ITIS PLUS, TMA chlamydia trachomatis RNA, tma, urogenital NOT DETECT ED not detect ed normal Not Available [address], [address], 08/21/2024 13:33:12 08/21/19 25 08/21/2024 SURES WAB(R ) ADVAN ALEJO VAGIN ITIS PLUS, TMA neisseria gonorrhoeae RNA, tma, urogenital NOT DETECT ED not detect ed normal For addit ional karen urbina refer to https ://ed ucati on.qu haily [employer]/f aq/FA Q154 (This link is being provi ded for carlitos rosario/ amy kat ses only. ) Not Available [facility] [address] [place], [address], 08/21/2024 13:33:12 06/07/19 25 04/26/2024 event monit or No observ ation record ed. [facility] [address] [place], [address], 06/07/2024 16:24:09 Result Notes None recorded. Problems Name Problem SNOMED Code Status Onset Date Resolution Date Notes Provider Name and Address Organization Details Recorded Time Suicide attempt Active 2021 Suicide Attempt; 08/2014; 04/22/20 12:21PM by William duarte, Office Visit; Promoted ; acuity set as *; JACE anthony [facility] 3 12:26:50 Mixed anxiety and depressive disorder 250273693 Active [address], [address] [place] [address], [facility] 5 19:07:31 Tachycardia 4035327 Active [address], [address] [place] [address] 5, [facility] 5 19:07:37 Syncope and collapse 473623148 Active [address], [address], [facility] 5 19:07:35 Problem Notes None recorded. Procedures Surgical History Date Name Laterality Status Provider Name and Address Organization Details Recorded Time Tonsillectomy completed Shellysacha Calderon [facility] 12/22/2023 08:20:14 Gallbladder Surgery completed Shellysacha Calderon [facility] 12/22/2023 08:20:20 Imaging Results None recorded. Procedure Notes None recorded. Medical Equipment None Reported. Allergies Allergen ID Allergen Name Allergen Category Reaction Reaction Severity Criticality Documentation Date Start Date Code Code System Note Provider Name and Address Organization Details Recorded Time 18712 latex environme nt,medica tion edema Not available Not available 12/21/2022 60248 91 RxNorm React ion: Edema , Itchi ng, Rash; Comme nt: Recor ded 04/22 12:21 PM by William Slade hwand er, Offic e Visit ; Promo raymond; Annetta timmons ce: *; ; Not Available [facility] 3 02:28:15 60455 egg extract food,medi cation vomiting severe high 01/13/2024 69188 15 RxNorm AZEB PALUMBO [facility], Sandip 4 16:27:29 Medications Name Sig Start Date Stop Date Status Note LastModified by Organization Details LastModified Time prednison e 20 mg tablet TAKE ONE TABLET BY MOUTH TWICE DAILY for FIVE DAYS 03/02 completed Not Available Not Available Not Available sertralin e 100 mg tablet TAKE 1 TABLET BY MOUTH ONCE DAILY FOR 90 DAYS active Not Available Not Available No t Available metronida zole 500 mg tablet TAKE 1 TABLET BY MOUTH TWICE DAILY FOR 7 DAYS active Not Available Not Available No t Available ciproflox acin 500 mg tablet TAKE 1 TABLET BY MOUTH EVERY 12 HOURS FOR 5 DAYS 01/05 completed Not Available Not Available Not Available omeprazol e 20 mg capsule,d elayed release QD 02/10 completed Recorded 02/19/20 22 8:18AM by William Jonas nder, Office Visit; Refill Quantity : 30; Capsule; Not Available Not Available Not Available fluticaso ne 100 mcg-salme terol 50 mcg/dose blistr powdr for inhalatio n INHALE 1 PUFF BY MOUTH TWICE DAILY 03/02 completed Not Available Not Available Not Available albuterol sulfate HFA 90 mcg/actua tion aerosol inhaler INHALE 1 PUFF BY MOUTH EVERY 6 HOURS NEEDED FOR SHORTNES S OF BREATH or wheezing 03/02 completed Not Available Not Available Not Available sertralin e 50 mg tablet TAKE 1 TABLET BY MOUTH ONCE DAILY 03/02 completed Not Available Not Available Not Available doxycycli ne hyclate 100 mg tablet Take 1 tablet twice a day by oral route for 7 days. 12/21 completed Not Available Not Available Not Available amoxicill in 875 mg-potass ium clavulana te 125 mg tablet TAKE ONE TABLET BY MOUTH TWICE DAILY for SEVEN DAYS 06/11 completed Not Available Not Available Not Available meloxicam QD prn 02/10 completed 173; Recorded 07/01/19 23 5:53PM by William duarte (Authori kyle through Sabrina Rosales MD), Annotati on/Adden dum; Refill Quantity : 30; Capsule; Not Available Not Available Not Available Xopenex HFA 45 mcg/actua tion aerosol inhaler Inhale 2 puffs every 6 hours by inhalati on route. 08/19 completed Not Available Not Available Not Available meloxicam submicron ized 10 mg capsule TAKE 1 CAPSULE BY MOUTH ONCE DAILY NEEDED 02/10 completed Not Available Not Available Not Available Vitals Date Recorded Body height Body mass index (BMI) Body weight Oxygen saturation Oxygen saturation in Arterial blood by Pulse oximetry Heart rate Respiratory rate Body temperature Systolic And Diastolic Provider Name and Address Organization Details Last Updated DateTime 5 170.18 cm 37.1 kg/m2 637457. 39 g 99 % 99 % 90 /min 16 /min 98.2 [degF] 122/74 mm[Hg] Shelly Calderon [facility] 5 18:04:05 Date Recorded Body height Body mass index (BMI) Body weight Oxygen saturation Oxygen saturation in Arterial blood by Pulse oximetry Heart rate Respiratory rate Body temperature Systolic And Diastolic Provider Name and Address Organization Details Last Updated DateTime 4 170.18 cm 37.6 kg/m2 526731. 17 g 97 % 97 % 87 /min 16 /min 98.5 [degF] 150/88 mm[Hg] [facility] 4 08:19:05 Date Recorded Body height Body mass index (BMI) Body weight Oxygen saturation Oxygen saturation in Arterial blood by Pulse oximetry Heart rate Respiratory rate Body temperature Systolic And Diastolic Provider Name and Address Organization Details Last Updated DateTime 4 170.18 cm 37.6 kg/m2 675686. 17 g 98 % 98 % 76 /min 20 /min 97 [degF] 130/70 mm[Hg] AZEB PALUMBO [facility] 4 16:18:47 Date Recorded Body height Respiratory rate Body mass index (BMI) Body weight Body temperature Oxygen saturation Oxygen saturation in Arterial blood by Pulse oximetry Heart rate Systolic And Diastolic Provider Name and Address Organization Details Last Updated DateTime 3 170.18 cm 20 /min 36.1 kg/m2 215003. 35 g 98.1 [degF] 91 % 91 % 72 /min 118/78 mm[Hg] JACE OSORIO [facility] 3 12:25:16 Date Recorded Body height Body mass index (BMI) Body weight Oxygen saturation Oxygen saturation in Arterial blood by Pulse oximetry Heart rate Respiratory rate Body temperature Systolic And Diastolic Provider Name and Address Organization Details Last Updated DateTime 4 170.18 cm 36.4 kg/m2 137955. 53 g 99 % 99 % 111 /min 20 /min 97.9 [degF] 118/82 mm[Hg] AZEB PALUMBO [facility] 4 14:46:42 Social History Question Answer Notes LastModified by Organizat ion Details LastModified Time Tobacco Smoking Status Former Smoker Shelly anthony [facility] 12/22/2023 08:20:04 Are You Blind Or Do You Have Difficulty Seeing? No Information not available 01/13/2024 Are You Deaf Or Do You Have Serious Difficulty Hearing? No Information not available 01/13/2024 Which Illicit Or Recreational Drugs Have You Used? Marijuana Information not available 01/13/2024 When Did You Quit Smoking? 1-5yearssincel astcidiane Information not available 01/13/2024 Sex: Unknown Functional Status Question Answer Note LastModified by Organizat ion Details LastModified Time Do you use any illicit or recreational drugs? Yes [place] [address] Information not available 01/13/2024 Are you able to care for yourself independently? Yes [place] [address] Information not available 01/13/2024 Mental Status None recorded. Family History Relationship Description Onset Age of this Age Resolved Age Notes LastModified by Organization Details LastModified Time Mother Diabetes mellitus [email or web address] Not available 01/12 16:28:47 Mother Hypertensive disorder [email or web address] Not available 01/12 16:29:35 Mother Cerebrovascu lar accident [email or web address] Not available 16:29:16 Mother Obese [email or web address] Not available 01/13/2024 16:30:01 Medical History No medical history recorded. Gynecological HistoryNo gynecological history recorded. Obstetrics History GPAL:G 0 P 0 0 0 0 Immunizations Vaccine Type Date Status Note Provider Nam e and Address Organization Details Recorded Time Tdap 7 completed JACE anthony [facility] 02/10/2023 12:25:36 Tdap 8 completed JACE anthony [facility] 02/10/2023 12:25:36 Influenza, split virus, trivalent, preservative 0 completed JACE anthony [facility] 02/10/2023 12:25:36 Tdap 1 completed Not Available [facility] 12/21/2022 02:51:44 COVID-19 vaccine, vector-nr, rS-Ad26, PF, 0.5 mL 2 completed JACE anthony [facility] 02/10/2023 12:25:36 Past Encounters Encounter ID Performer Location Encounter Start Date Encounter Closed Date Diagnosis/Indication Diagnosis SNOMED-CT Code Diagnosis ICD10 Code Diagnosis Note [id number] Mario Gallardo MD [facility] ([facility]) [address] [place] [phone] 02/10/2023 12:18:06 02/10/2023 12:56:56 Acute bronchitis 06479816 J20.9 Based exam we will treat with antibiotic s and steroids. We will also have her start an as needed albuterol inhaler. Follow-up when symptoms have improved and she may need a work-up for possible underlying asthma. [id number] MICHELLE GARCIA PA-C [facility] ([facility]) [address] [place] [phone] 12/22/2023 08:02:13 12/22/2023 08:46:10 Dysuria 55331388 R30.0 Acute urin hannah tract infection 594420714 N39.0 [id number] MICHELLE GARCIA PA-C [facility] ([facility]) [address] [place] [phone] 01/13/2024 15:35:20 01/18/2024 22:49:19 Mixed anxiety and depressive disorder 639922135 F41.8 Pain of ri ght hip joint 8671324660 69507 M25.551 FH of EDS, she is double jointed with snapping hip Low back pain 691053335 M54.50 Obesity 665424920 E66.9 [id number] MICHELLE GARCIA PA-C [facility] ([facility]) [address] [place] [phone] 03/02/2024 14:40:20 03/02/2024 15:25:49 Community acquired pneumonia 750968939 J18.9 Hospital i npatient stay within past 30 days 4812480034 106 Z76.89 medical records and discharge meds reviewed. Tachycardia 2787913 R00. 0 avoid caffiene. Syncope and collapse 309 482562 R55 [id number] URMILA CAMPBELL [facility] ([facility]) [address] [place] [phone] 08/19/2024 17:57:41 08/20/2024 14:45:39 Venereal disease screening 829568956 Z11.3 Self vaginal swab collected. Will call with test results. Discussed to abstain from sexual acts until testing completed. Health Concerns Section Related Observation LastModified by Organization Detai ls LastModified Time None Recorded Concern Status LastModified by Organization Details LastModified Time None Recorded Advance Directives Directive None Recorded Payers Insurance Date Sequence Insurance Name Policy Number Policy Ritter Covered Member ID Ritter Member ID Guarantor Name 06/14/2024 1 [facility] [id number] Gerardo Calvin [id number] Haley Calvin 08/19/2024 1 [place] [id number] 1 Haley Calvin [id number] Haley Calvin 12/22/2023 1 [facility] ([facility] Haley Calvin [id number] Haley Calvin Notes Date Note Type Note Provider Name and Address Organization Details Recorded Time 023 text/ht ml This is a 27-year-old female that comes in today with upper respiratory symptoms and. Patient is also having increased productive cough and shortness of breath. Patient states that she has had some wheezing. Patient denies any personal history of asthma. Mario Gallardo MD [address] [place] [address], [phone], [facility] 02/11/2023 09:48:14 024 text/ht ml Lower Urinary Tract Symptoms (LUTS)Reported by Patient walk in patientpatient is here today for urine urgency, urine burning, and urinary incontinence that started a week ago and is getting worse. MICHELLE GARCIA PA-C [address] [place], [address], [facility] 12/22/2023 12:31:05 024 text/ht ml Anxiety/DepressionReported by PatientHPIFor associated symptoms, patient reportsanxietyanddepression. For severity, patient reportsdenies suicidal ideations,able to maintain relationships, andstabilizing. For duration, patient reportschronic. For onset/timing, patient reportsgradual. For modifying factors, patient reportscounsellingandmedications as directed. establish with Michelle . I need my sertraline increased, or changed I have tried risperidal and effexor ( was on for yrs age 25) and they make me a zombie. I need a referral to someone about my varicose veinsmixed anxiety and depression. [email or web address].large varicous vein EDS sister MICHELLE GARCIA PA-C [address] [place], [address], [facility] 01/16/2024 16:40:39 024 text/ht ml Upper Respiratory SymptomsReported by PatientUpper Respiratory SymptomsFor quality, patient reportsproductive coughandcongested. For context, patient reportssmoker. For associated symptoms, patient reportschest pain,blood-streaked sputum,shortness of breath,wheezing,difficulty breathing at night,fatigue, andfever. For location, patient reportschest. For severity, patient reportsmoderate. For duration, patient reportssymptoms lasting less than 2 weeks. For onset/timing, patient reportsgradual. For alleviating factors, patient reportsantihistaminesanddecongestan t. FOLLOW UP FROM HOSPITAL 02-21-24 PNEUMONIA FEELING MUCH BETTER. HOSPITAL IST THOUGHT SHE MIGHT NEED A HEART MED FOR ABNORMAL HEART RATE =SYNCOPE, OOT USING ALBUTEROL MOM HAD HER STOPIT DUE TO INCREASED HEART RATE AND GAVE HER A XOPENEX SHE WOULD LIKE A RX FOR THIS MICHELLE GARCIA PA-C [address] [place], [address], [facility] 03/02/2024 15:25:27 025 text/ht ml Vaginal/Vulvar ProblemReported by PatientROS as noted in the HPI walk in patientpatient is here today for a STD testing her and her have open relationships with other people and one of her boyfriends tested positive for trichomoniasis. Pt states she does not currently have any vaginal discharge, odor, or symptoms. URMILA CAMPBELL [address] [place], [address], [facility] 08/20/2024 07:26:50 OBGyn Episode No OBEpisode recorded.
--- NOTE | 2024-12-19 01:48 | ECG_ITS ---
[facility] Test Date: 2024-12-19 Pat Name: Haley Oden Department: Room: Gender: Female Research Nurse: TERRIE : 1995 Requested By: Benja Leonard Order Number: [id number] Reading MD: Measurements Intervals [place] Rate: 80 P: 120 MD: 133 QRS: 135 QRSD: 91 T: 143 QT: 362 QTc: 419 Interpretive Statements SINUS RHYTHM ARM LEADS REVERSED [INVERTED P AND QRS IN I] [email or web address]
[2024-12-19 01:53] VITALS: BP 131/81; PULSE 84; RESP 20; TEMP 36.9; O2SAT 100; BMI 34.0
[2024-12-19 02:35] LABS: Hematocrit 37.3 % (36-47); Hemoglobin 12.30 g/dL (11.27-16.99); Mean Corpuscular HGB Conc 33.0 g/dL (30-55); Mean Corpuscular Hemoglobin 27.2 pg (27-33); Mean Corpuscular Volume 82.5 fl (85-98); Nucleated Red Blood Cells % 0 %; Platelet Count 372 10^3/cmm (157-399); Red Blood Count 4.52 10^6/uL (3.85-5.65); White Blood Count 10.93 10^3/uL (3.29-11.43)
[2024-12-19 02:49] LABS: Troponin(5th) Baseline < 6 ng/L (0-10)
[2024-12-19 02:55] LABS: Alanine Aminotransferase 15 U/L (0-33); Albumin Level 4.4 g/dL (3.5-5.2); Alkaline Phosphatase 99 U/L (35-105); Anion Gap 18.1 (5-19); Aspartate Amino Transferase 17 U/L (0-32); Blood Urea Nitrogen 12 mg/dL (6-20); Calcium 9.6 mg/dL (8.5-10.5); Carbon Dioxide 22 mmol/L (22-29); Chloride 102 mmol/L (98-107); Creatinine Clr Calc Pharmacy 168.2131; Globulin 2.5 g/dL (1.3-4.6); Glucose 109 mg/dL (65-115); Osmolality Calculated 286 mOsm/kg (285-295); Potassium 4.1 mmol/L (3.5-5.1); Sodium 138 mmol/L (136-145); Total Protein 6.9 g/dL (6.6-8.7)
[2024-12-19 03:09] VITALS: BP 122/72; PULSE 89; RESP 16; O2SAT 98
--- NOTE | 2024-12-19 03:25 | XRR_ITS ---
PROCEDURE INFORMATION: Exam: XR Chest Exam date and time: 12/19/2024 3:38 AM Age: 29 years old Clinical indication: Chest pressure; C/O chest pain; Additional info: Cp TECHNIQUE: Imaging protocol: Radiologic exam of the chest. Views: 1 view. COMPARISON: CR XR chest 1V portable [id number] 02/23/2024 9:06 AM FINDINGS: Lungs: Lungs are clear bilaterally. Pleural spaces: No pleural effusion. No pneumothorax. Heart/Mediastinum: The cardiac silhouette and mediastinal contours are unremarkable. Bones/joints: Unremarkable for age. XR/XR chest 1V portable [id number] IMPRESSION: Negative chest radiograph.
[2024-12-19 03:58] LABS: Glucose Urine UA Negative (Normal); Nitrate Urine Positive (Negative); Specific Gravity, Urine 1.015 (1.005-1.030)
[2024-12-19 03:59] LABS: Thyroid Stimulating Hormone 0.85 uIU/mL (0.27-4.20)
[2024-12-19 04:03] LABS: Add Urine Microscopic? YES
--- NOTE | 2024-12-19 04:05 | ECG_ITS ---
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
--- NOTE | 2024-12-19 04:05 | ECG_ITS ---
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
[2024-12-19 04:18] VITALS: BP 140/89; PULSE 68; RESP 16; O2SAT 100
--- NOTE | 2024-12-19 04:31 | W.ED.CHESTPA ---
HPI - Chest Pain General: Chief Complaint: Chest Pain Stated Complaint: CP tightness SOB dizzy N/V Back Pain Time Seen by Provider: 12/19/24 03:25 History of Present Illness: 29-year-old female has had on-and-off chest discomfort and shortness of breath with palpitations for the past year or so. For the last 2 days it has been increasing in frequency and intensity. She had an episode at home that was quite intense involving nausea, backache, chest discomfort, palpitations, and shortness of breath. It is mostly resolved although she is still having some discomfort and shortness of breath. She denies recent illness. She denies cough or fever. She does have a history of thrombosis of the lower extremity, which was treated with Eliquis for short duration. She notes that when she quit smoking, her clotting issues went away Related Data Home Medications ?Medication ?Instructions ?Recorded ?Confirmed sertraline 25 mg tablet (Zoloft) 100 mg PO DAILY 01/20/21 02/21/24 Previous Rx's ?Medication ?Instructions ?Recorded albuterol sulfate 90 mcg/actuation 1 inh inhalation Q6H PRN shortness 02/25/24 aerosol inhaler of breath or wheezing #8.5 grams fluticasone 100 mcg-salmeterol 50 1 inh inhalation BID #60 ea 02/25/24 mcg/dose blistr powdr for inhalation (Advair Diskus) propranolol 20 mg tablet 20 mg PO BID #60 tabs 12/19/24 Allergies Allergy/AdvReac Type Severity Reaction Status Date / Time Latex, Natural Rubber Allergy ALGY-Hives Verified 07/07/24 17:59 eggs Allergy Unknown Uncoded 02/21/24 12:28 PFS ED PFSH: Medical History History of DVT (deep vein thrombosis) No pertinent past medical history Surgical History Hx of tonsillectomy Hx of cholecystectomy Family History Mother Hypertension Father Diabetes Grandmother Dementia Social History Smoking and tobacco/nicotine status: current every day tobacco/nicotine user Physical Exam Const: COMMON NORMALS: no acute distress GENERAL APPEARANCE: cooperative; not ill appearing and not frail appearing HENMT: COMMON NORMALS: normocephalic, atraumatic and Normal external nose present HEAD & SCALP: normocephalic and atraumatic FACE & SINUS: normal facial exam and face symmetric NOSE: Normal external nose present Eye: COMMON NORMALS: Equal, round and reactive pupils present and EOMs intact bilaterally PUPIL: Yes Equal, round and reactive pupils present Neck/C-Spine: GENERAL: Yes trachea midline Chest: CHEST: Yes Symmetrical chest wall rise Resp: COMMON NORMALS: normal respiratory effort, No retractions, No use of accessory muscles and clear to auscultation bilaterally AUSCULTATION: clear to auscultation bilaterally Cardio: COMMON NORMALS: regular rate and regular rhythm RATE: regular rate RHYTHM: regular rhythm GI: COMMON NORMALS: Normal to inspection, nondistended, normoactive bowel sounds present Extremity: COMMON NORMALS: no pedal edema Neuro: DALE COMA SCALE: document GCS findings Fernley coma scale eye opening: Spontaneous Dale coma scale verbal response: Orientated [place]ley coma scale motor response: Obey commands Fernley coma scale total score: 15 SENSORY EXAM: Yes extremities (intact) Psych: COMMON NORMALS: speech normal SPEECH: Yes normal speech Skin: COMMON NORMALS: no rashes or lesions noted GENERAL SKIN EXAM: no rashes or lesions noted Course Vital Signs: Vital signs: Vital Signs Temperature 98.4 F 12/19/24 01:53 Pulse Rate 56 L 12/19/24 04:37 Respiratory Rate 16 12/19/24 04:37 Blood Pressure 136/86 12/19/24 04:37 Pulse Oximetry 100 12/19/24 04:37 Oxygen Delivery Me thod Room Air 12/19/24 04:18 MDM - Chest Pain Medical Decision Making Patient has an EKG showing normal sinus rhythm with normal axis and intervals and no ST-T wave changes. Repeat EKG shows a sinus bradycardia with the same. CBC BMP are normal. Troponin is nondetectable. TSH is 0.85. Chest x-ray is negative. Symptoms are improved at this point. I looked back at her event monitor study. It shows periods of symptomatic sinus tachycardia. She will be placed on low-dose propranolol for now to help mitigate symptoms. Close outpatient follow-up. Return for any problems. Lab Data 12/19/24 02:20 12/19/24 02:20 Radiology Impressions Chest X-Ray 12/19/24 03:25 IMPRESSION: Negative chest radiograph. Laboratory Results WBC 10.93 10^3/uL (3.29-11.43) 12/19/24 02:20 RBC 4.52 10^6/uL (3.85-5.65) 12/19/24 02:20 Hgb 12.30 g/dL (11.27-16.99) 12/19/24 02:20 Hct 37.3 % (36-47) 12/19/24 02:20 MCV 82.5 fl (85-98) L 12/19/24 02:20 MCH 27.2 pg (27-33) 12/19/24 02:20 MCHC 33.0 g/dL (30-55) 12/19/24 02:20 RDW 13.7 % (12.1-15.1) 12/19/24 02:20 Plt Count 372 10^3/cmm (157-399) 12/19/24 02:20 MPV 10.9 fL (7.4-10.4) H 12/19/24 02:20 Neut % (Auto) 69.7 % 12/19/24 02:20 Lymph % (Auto) 20.8 % 12/19/24 02:20 Rabun % (Auto) 7.2 % 12/19/24 02:20 Eos % (Auto) 0.8 % 12/19/24 02:20 Baso % (Auto) 1.1 % 12/19/24 02:20 Neut # (Auto) 7.62 10^3/uL (1.8-7.7) 12/19/24 02:20 Lymph # (Auto) 2.3 10^3/uL (0.8-4.8) 12/19/24 02:20 Rabun # (Auto) 0.8 10^3/uL (0.2-0.9) 12/19/24 02:20 Eos # (Auto) 0.1 10^3/uL (0.0-0.8) 12/19/24 02:20 Baso # (Auto) 0.1 10^3/uL (0.0-0.1) 12/19/24 02:20 Nucleated RBC % (auto) 0 % 12/19/24 02:20 Nucleated RBCs # 0.0 /100WBC 12/19/24 02:20 Sodium 138 mmol/L (136-145) 12/19/24 02:20 Potassium 4.1 mmol/L (3.5-5.1) 12/19/24 02:20 Chloride 102 mmol/L (98-107) 12/19/24 02:20 Carbon Dioxide 22 mmol/L (22-29) 12/19/24 02:20 Anion Gap 18.1 (5-19) 12/19/24 02:20 BUN 12 mg/dL (6-20) 12/19/24 02:20 Creatinine 0.6 mg/dL (0.5-0.9) 12/19/24 02:20 GFR Calculation 119.0 mL/min (90-130) 12/19/24 02:20 Glucose 109 mg/dL (65-115) 12/19/24 02:20 Calculated Osmolality 286 mOsm/kg (285-295) 12/19/24 02:20 Calcium 9.6 mg/dL (8.5-10.5) 12/19/24 02:20 Total Bilirubin 0.5 mg/dL (0.15-1.2) 12/19/24 02:20 AST 17 U/L (0-32) 12/19/24 02:20 ALT 15 U/L (0-33) 12/19/24 02:20 Alkaline Phosphatase 99 U/L (35-105) 12/19/24 02:20 Troponin T Baseline < 6 ng/L (0-10) 12/19/24 02:20 Troponin T 120 Minute < 6.0 ng/L (0-10) 12/19/24 04:30 Delta Troponin T 0 ABS# (0-10) 12/19/24 04:30 Total Protein 6.9 g/dL (6.6-8.7) 12/19/24 02:20 Albumin 4.4 g/dL (3.5-5.2) 12/19/24 02:20 Globulin 2.5 g/dL (1.3-4.6) 12/19/24 02:20 TSH 0.85 uIU/mL (0.27-4.20) 12/19/24 02:20 Urine Color Yellow (Yellow) 12/19/24 03:00 Urine Appearance Clear (CLEAR) 12/19/24 03:00 Urine pH 7.5 (5-7) 12/19/24 03:00 Ur Specific [place] 1.015 (1.005-1.030) 12/19/24 03:00 Urine Protein Negative (Negative) 12/19/24 03:00 Urine Glucose (UA) Negative (Normal) 12/19/24 03:00 Urine Ketones Negative (Negative) 12/19/24 03:00 Urine Blood Negative (Negative) 12/19/24 03:00 Urine Nitrate Positive (Negative) A 12/19/24 03:00 Urine Bilirubin Negative (Negative) 12/19/24 03:00 Urine Urobilinogen 1.0 mg/dL (Negative) 12/19/24 03:00 Ur Leukocyte Esterase Negative (Negative) 12/19/24 03:00 Urine RBC 0-2 /hpf (0-2) 12/19/24 03:00 Urine WBC 0-5 /hpf (0-5) 12/19/24 03:00 Ur Squamous Epith Cells 6-10 /hpf (0-5) 12/19/24 03:00 Amorphous Sediment Not Reportable 12/19/24 03:00 Urine Bacteria 4+ /hpf (NONE) H 12/19/24 03:00 Hyaline Casts 6.20 /lpf 12/19/24 03:00 All radiology interpretation(s) finalized by discharge Discharge Plan Discharge Patient Disposition: Home Clinical Impression: Chest pain, Sinus tachycardia Condition: Stable Prescriptions: New propranolol 20 mg tablet 20 mg PO BID Qty: 60 0RF No Action sertraline [Zoloft] 25 mg Tablet 100 mg PO DAILY albuterol sulfate 90 mcg/actuation HFA aerosol inhaler 1 inh inhalation Q6H PRN (Reason: shortness of breath or wheezing) Qty: 8.5 0RF fluticasone propion-salmeterol [Advair Diskus] 100-50 mcg/dose blister with device 1 inh inhalation BID Qty: 60 0RF Discharge Orders: Discharge ED (Routine); Ordered 12/19/24 Ordered By: Benja Velasquez Referrals: Michelle Garcia PA [Primary Care Provider, [facility]] - 1-3 days Patient Instructions: Chest Pain (ED), Tachycardia (ED), Opioid Safety, Pain Management, Patient Portal & Cassius Instructions Activity Restrictions/Additional Instructions: Medication as directed. Return for worsening chest discomfort or shortness of breath despite treatment. 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
[2024-12-19 04:37] VITALS: BP 136/86; PULSE 56; RESP 16; O2SAT 100
[2024-12-19 04:52] LABS: Troponin 5 2HR < 6.0 ng/L (0-10); Troponin 5 2HR Delta 0 ABS# (0-10)
== END 2024-12-19 04:43 | disposition home or self-care (01) ==
PROVIDERS: Emergency Provider Emergency Medicine; PCP Physician Assistant
DX: R07.9 Chest pain, unspecified (principal); R00.0 Tachycardia, unspecified; Z72.0 Tobacco use
CPT/HCPCS: 36415; 71045; 80053; 81001; 84443; 84484; 85025; 93005; 99285